=== PATIENT | male | born 1945 | race Caucasian/White ===

== ENCOUNTER 2019-08-09 08:33 | Day surgery (SDC) | payer MEDICARE, MEDICAID ==
[2019-08-09 09:22] LABS: INTERNATIONAL RATION (INR) 1.24; PROTHROMBIN TIME 15.7 SEC (11.4-15.4)
[2019-08-09 09:23] LABS: PARTIAL THROMBOPLASTIN TIME 31.6 SEC (23.5-35.8)
--- NOTE | 2019-08-09 13:42 | RADIOLOGY REPORT (SQ) ---
EXAM DESCRIPTION: MYELOGRAM LUMBAR COMPLETED DATE/TIME: 08/09/2019 12:00 pm REASON FOR STUDY: RADICULOPATHY LUMBAR REGION M54.16 RADICULOPATHY, LUMBAR REGION Z79.01 [facility] (CURRENT) USE OF ANTICOAGULANTS COMPARISON: None. FLUOROSCOPY TIME: 1.3 minutes. 10 images saved to PACS. TECHNIQUE: Fluoroscopic guided lumbar myelogram. LIMITATIONS: None. PROCEDURE: After written consent and assessment were obtained, the patient was brought into the fluo roscopy room and placed prone on the table. The patient's lower back was prepped in a sterile fashio n and an entry site was selected under live fluoroscopic guidance. The entry site was anesthetized wi th 1% lidocaine. The spinal needle was advanced through the skin and into the thecal sac at the leve l of L2-L3. Contrast was injected into the thecal sac. Following the procedure the needle was remov ed and a sterile bandage was placed of the site. CONTRAST: 15 mL Omnipaque 180. IMAGES ACQUIRED: 10 images. FINDINGS: Contrast is present in the thecal sac. IMPRESSION: LUMBAR MYELOGRAM PERFORMED FOR CT MYELOGRAPHY. PLEASE REFER TO THE REPORT OF THE CT MYE LOGRAM FOR DETAILED DIAGNOSTIC EVALUATION. COMMENT: Patient medication list reviewed: Yes- Quality ID# [id number]:Eligible professional attests to doc umenting in the medical record they obtained, updated, or reviewed the patient's current medications. . Quality ID [id number]: Final reports for procedures using fluoroscopy that document radiation exposure marsha maru, or exposure time and number of fluorographic images (if radiation exposure indices are not avail able) TECHNICAL DOCUMENTATION: JOB ID: [id number] [employer]- All Rights Reserved Reading location - IP/workstation name: [email or web address]
--- NOTE | 2019-08-09 13:51 | RADIOLOGY REPORT (SQ) ---
EXAM DESCRIPTION: CT LUMBAR SPINE WITH COMPLETED DATE/TIME: 08/09/2019 11:02 am REASON FOR STUDY: RADICULOPATHY LUMBAR REGION M54.16 RADICULOPATHY, LUMBAR REGION Z79.01 [facility]IST (CURRENT) USE OF ANTICOAGULANTS COMPARISON: None. TECHNIQUE: After performing lumbar myelogram, axial images were acquired through the lumbar spine wi thout intravenous contrast. Images reviewed with lung, soft tissue and bone windows. Reconstructed coronal and sagittal MPR images reviewed. All images stored on PACS. All CT scanners at this facility use dose modulation, iterative reconstruction, and/or weight based d osing when appropriate to reduce radiation dose to as low as reasonably achievable (ALARA). [facility]: Dose Right [facility]: CareDose [facility]: Dose Right [facility]: Teradose 4D [facility]: Exalead RADIATION DOSE: CT Rad equipment meets quality standard of care and radiation dose reduction techniq ues were employed. CTDIvol: 5.7 mGy. DLP: 226 mGy-cm. mGy. LIMITATIONS: None. FINDINGS: SEGMENTATION: Normal. No transitional anatomy. ALIGNMENT: Normal. VERTEBRAL BODIES: No fractures. No dislocation. No acute findings. HARDWARE: None in the spine. DISCS: T11-T12: No significant protrusions. No significant stenosis. Dural ectasia involving the right nerv e root sheath in the exit foramen. T12-L1: No significant protrusions. No significant stenosis. L1-L2: No significant protrusions. No significant stenosis. L2-L3: No significant protrusions. No significant stenosis. L3-L4: No significant protrusions. No significant stenosis. There is dural ectasia of the right ner ve root sheath causing chronic scalloping of the posterior body of the L3 vertebra. L4-L5: No significant protrusions. No significant stenosis. L5-S1: Mild posterior disc and osteophyte. No significant protrusions. No significant stenosis. PEDICLES, TRANSVERSE PROCESSES: No fractures. No dislocation. No acute findings. FACETS, POSTERIOR ELEMENTS: Facet arthropathy particularly in the lower lumbar spine No fractures. No dislocation. No spinal stenosis. VISUALIZED RIBS: No fractures. SOFT TISSUES: No significant or acute finding in adjacent soft tissues. OTHER: 4.2 cm infrarenal abdominal aortic aneurysm, not completely imaged. IMPRESSION: 1. MILD POSTERIOR DISC AND OSTEOPHYTE AT L5-S1. THE REMAINDER OF THE LUMBAR DISC LEVELS ARE UNREMARK ABLE. NO SIGNIFICANT PROTRUSIONS. NO STENOSIS OR IMPINGEMENT. 2. 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 3. FACET ARTHROPATHY IN THE LOWER LUMBAR SPINE. 4. 4.2 CM INFRARENAL ABDOMINAL AORTIC ANEURYSM, NOT COMPLETELY IMAGED. COMMENT: Patient medication list reviewed: Yes- Quality ID# [id number]:Eligible professional attests to doc umenting in the medical record they obtained, updated, or reviewed the patient's current medications. TECHNICAL DOCUMENTATION: JOB ID: [id number] Quality ID # [id number]: Final reports with documentation of one or more dose reduction techniques (e.g., Au tomated exposure control, adjustment of the mA and/or kV according to patient size, use of iterative reconstruction technique) 2010 [employer] All Rights Reserved Reading location - IP/workstation name: [email or web address]
[2019-08-09 14:08] VITALS: BP 134/66
== END 2019-08-09 13:20 ==
LOC: RAD 08:33
PROVIDERS: ATTEND Physician Assistant
DX: M54.16 Radiculopathy, lumbar region (principal); Z79.01 Long term (current) use of anticoagulants; I10 Essential (primary) hypertension; Z86.73 Personal history of transient ischemic attack (TIA), and cerebral infarction without residual deficits; Z79.899 Other long term (current) drug therapy; Z87.891 Personal history of nicotine dependence; M51.86 Other intervertebral disc disorders, lumbar region; Z95.0 Presence of cardiac pacemaker
CPT/HCPCS: 36415; 72132; 72265; 85610; 85730

== ENCOUNTER 2019-08-15 15:00 | Emergency (ER) | payer MEDICARE, MEDICAID ==
[2019-08-15] MEDS ORDERED: ACETAMINOPHEN 325 MG TABLET PO ONE (16:12)
[2019-08-15 17:07] LABS: ABSOLUTE LYMPHOCYTES (AUTO) 1.4 10^3/uL (0.5-4.7); ABSOLUTE NEUT (AUTO) 10.3 10^3/uL (1.7-8.2); BASOPHILS % (AUTO) 0.4 % (0-2); HEMATOCRIT 38.3 % (37.9-51.0); HEMOGLOBIN 13.1 g/dL (13.5-17.0); LYMPHOCYTES % (AUTO) 10.8 % (13-45); MEAN CORPUSCULAR HEMOGLOBIN 32.1 pg (27.0-33.4); MEAN CORPUSCULAR HGB CONC 34.1 g/dL (32.0-36.0); MEAN CORPUSCULAR VOLUME 94 fl (80-97); MONOCYTES % (AUTO) 7.8 % (3-13); PLATELET COUNT 195 10^3/uL (150-450); RED BLOOD COUNT 4.07 10^6/uL (4.35-5.55); RED CELL DISTRIBUTION WIDTH 13.6 % (11.5-14.0); TOTAL CELLS COUNTED % (AUTO) 100 %; WHITE BLOOD COUNT 12.7 10^3/uL (4.0-10.5)
[2019-08-15 17:09] LABS: VENOUS BLOOD BASE EXCESS -1.4 mmol/L; VENOUS BLOOD HCO3 22.8 mmol/L (20-32); VENOUS BLOOD PCO2 37.3 mmHg (35-63); VENOUS BLOOD PH 7.41 (7.30-7.42)
--- NOTE | 2019-08-15 17:15 | RADIOLOGY REPORT (SQ) ---
EXAM DESCRIPTION: ELBOW LEFT AP/LATERAL COMPLETED DATE/TIME: 08/15/2019 5:02 pm REASON FOR STUDY: pain and swelling COMPARISON: None. EXAM PARAMETERS: NUMBER OF VIEWS: Two view. TECHNIQUE: AP and lateral radiographic images acquired of the left elbow. LIMITATIONS: None. FINDINGS: MINERALIZATION: Normal. BONES: No acute fracture or dislocation. No worrisome bone lesions. JOINTS: No effusion. SOFT TISSUES: Olecranon soft tissue swelling. No radiopaque foreign body. OTHER: No other significant finding. IMPRESSION: NO FRACTURE.Olecranon soft tissue swelling. No radiopaque foreign body. TECHNICAL DOCUMENTATION: JOB ID: [id number] [place]-72 2010 [email or web address]- All Rights Reserved Reading location - IP/workstation name: [email or web address]
--- NOTE | 2019-08-15 17:16 | RADIOLOGY REPORT (SQ) ---
EXAM DESCRIPTION: KNEE RIGHT 3 VIEWS COMPLETED DATE/TIME: 08/15/2019 5:02 pm REASON FOR STUDY: pain and swelling COMPARISON: None. NUMBER OF VIEWS: Three views. TECHNIQUE: AP, lateral, and sunrise patella radiographic images acquired of the right knee. LIMITATIONS: None. FINDINGS: MINERALIZATION: Osteopenia. BONES: No acute fracture or dislocation. No worrisome bone lesions. JOINT: No effusion. SOFT TISSUES: No soft tissue swelling. No radio-opaque foreign body. OTHER: No other significant finding. IMPRESSION: NEGATIVE STUDY OF THE RIGHT KNEE. NO RADIOGRAPHIC EVIDENCE OF ACUTE INJURY. TECHNICAL DOCUMENTATION: JOB ID: [id number] [employer]- All Rights Reserved Reading location - IP/workstation name: [email or web address]
[2019-08-15 17:25] LABS: ALBUMIN 3.9 g/dL (3.5-5.0); ALKALINE PHOSPHATASE 111 U/L (38-126); ANION GAP 11 (5-19); ASPARTATE AMINO TRANSFERASE 26 U/L (17-59); BILIRUBIN,DIRECT 0.3 mg/dL (0.0-0.4); BILIRUBIN,TOTAL 1.3 mg/dL (0.2-1.3); BLOOD UREA NITROGEN 23 mg/dL (7-20); CALCIUM 9.5 mg/dL (8.4-10.2); CARBON DIOXIDE 26 mmol/L (22-30); CHLORIDE 100 mmol/L (98-107); GLUCOSE 133 mg/dL (75-110); POTASSIUM 4.2 mmol/L (3.6-5.0); TOTAL PROTEIN 7.3 g/dL (6.3-8.2)
[2019-08-15] MEDS ORDERED: COLCHICINE 0.6 MG TABLET PO ONE (18:35)
[2019-08-15] MEDS ORDERED: FEBUXOSTAT 40 MG TABLET PO ONE (18:35)
--- NOTE | 2019-08-15 18:35 | ER Document Report ---
ED General - General Chief Complaint: Elbow Injury Stated Complaint: FALL Time Seen by Provider: 08/15/19 15:06 Primary Care Provider: REDD MÉNDEZ MD [Primary Care Provider] - Follow up as needed Notes: 74-year-old male sent from [place] complaining of right knee pain and left elbow pain. Patient can give me no further history aside from the fact that is been hurting for several days. When the son comes in he states that the patient has actually been calling about right foot pain rather than right knee pain. When interviewing the patient in front of the son the patient states that his right foot hurts more than his right knee and that he has had multiple falls at the halfway. Complains of no other pain. States he has been diagnosed with urinary tract infection has been Augmentin for the past week. Denies any other symptoms. TRAVEL OUTSIDE OF THE [place] IN LAST 30 DAYS: No - Related Data Allergies/Adverse Reactions: No Known Allergies Allergy (Unverified 05/27/18 12:57) Past Medical History - General Information source: Patient, Relative - Social History Smoking Status: Never Smoker Chew tobacco use (# tins/day): No Frequency of alcohol use: None Drug Abuse: None Family History: Reviewed & Not Pertinent Patient has suicidal ideation: No Patient has homicidal ideation: No - Past Medical History Cardiac Medical History: Reports: Hx Hypertension - MEDICATED Denies: Hx Heart Attack Pulmonary Medical History: Denies: Hx Asthma, Hx Bronchitis, Hx COPD, Hx Pneumonia Neurological Medical History: Reports: Hx Cerebrovascular Accident - 12/2017 STROKE BEHIND LEFT EYE/NO DEFICEIT. Denies: Hx Seizures GI Medical History: Denies: Hx Hepatitis, Hx Hiatal Hernia, Hx Ulcer Infectious Medical History: Denies: Hx Hepatitis Past Surgical History: Denies: Hx Open Heart Surgery, Hx Pacemaker - Immunizations Hx Diphtheria, Pertussis, Tetanus Vaccination: No Review of Systems - Review of Systems Constitutional: Weakness EENT: No symptoms reported Male Genitourinary: See HPI Musculoskeletal: See HPI Skin: See HPI -: Yes All other systems reviewed and negative Physical Exam - Vital signs Vitals: Temp Pulse Resp BP Pulse Ox 98.4 F 83 18 133/84 H 100 08/15/19 15:01 08/15/19 15:01 08/15/19 15:01 08/15/19 15:01 08/15/19 15:01 Interpretation: Normal - Notes Notes: GENERAL: Alert, mildly confused. No acute distress. HEAD: Normocephalic, atraumatic EYES: Pupils equal, round and reactive to light, extraocular movements intact. ENT: Oral mucosa moist, tongue midline. NECK: Full range of motion, supple, trachea midline. LUNGS: Clear to auscultation bilaterally, no wheezes, rales or rhonchi, no respiratory distress. HEART: Regular rate and rhythm, no murmurs, gallops, rubs. ABDOMEN: Soft, nontender, nondistended, bowel sounds present in all 4 quadrants. EXTREMITIES: Moves all 4 extremities spontaneously but complains of pain with flexion extension of his knee. Later on is moving his right knee without any difficulty or hesitation, skin changes as noted below, radial and dorsalis pedis pulses 2/4 bilaterally. No cyanosis. NEUROLOGICAL: Alert and mildly confused, oriented to person and place, does not know the year. PSYCH: Normal mood, normal affect. SKIN: Bursa of left elbow is enlarged, tender to palpation, fluctuant, hot to the touch. Lateral aspect of right foot is also hot to the touch, no swelling and no fluctuance noted. Course - Re-evaluation Re-evalutation: 08/15/19 18:49 Patient was found to be febrile, white blood cell count is elevated at 12.7, mildly anemic with hemoglobin of 13.1, VBG unremarkable, chemistries show BUN of 23 which is unchanged from 10 days ago, creatinine is 1.93 which is also not sig nificantly changed from 10 days ago, urinalysis has been ordered. I did aspirate the enlarged bursa of the left elbow based off of his fever because I did not want to miss an abscess however what I obtained is classic for gouty arthritis. It was sent for Gram stain and culture. Knee x-ray and elbow x-ray are negative for any acute process. Foot x-ray was ordered after son presented and stated that he is afraid the patient fell and injured his right foot rather than his right knee. 08/15/19 20:39 Chest x-ray unremarkable. Foot x-ray unremarkable. Urinalysis shows no sign of infection although it does show blood. Patient has been pancultured, no evidence of focal infection. No true alteration in mental status. At this point I have no explanation for why the patient is febrile however he is quite stable. Patient and son are both agreeable with the patient being transferred back to [facility]. Patient will be treated for his gout with Uloric. - Vital Signs Vital signs: Temp Pulse Resp BP Pulse Ox 99.4 F 78 18 122/56 L 96 08/15/19 18:59 08/15/19 17:46 08/15/19 15:01 08/15/19 17:46 08/15/19 17:46 - Laboratory Result Diagrams: 08/15/19 16:40 08/15/19 16:40 Laboratory results interpreted by me: 08/15/19 08/15/19 08/15/19 16:40 16:40 19:04 WBC 12.7 H RBC 4.07 L Hgb 13.1 L Lymph % (Auto) 10.8 L Absolute Neuts (auto) 10.3 H Seg Neutrophils % 81.0 H BUN 23 H Creatinine 1.93 H Est GFR ( Amer) 41 L Est GFR (MDRD) Non-Af 34 L Glucose 133 H Urine Ketones TRACE H Urine Blood LARGE H Discharge - Discharge Clinical Impression: Gout of left elbow Qualifiers: Gout etiology: unspecified cause Chronicity: acute Qualified Code(s): M10.9 - Gout, unspecified Gout of right foot Qualifiers: Gout etiology: unspecified cause Chronicity: acute Qualified Code(s): M10.9 - Gout, unspecified Condition: Stable Disposition: REHAB FACILITY Additional Instructions: Today you had a fever but we do not have an exact cause for your fever. There is no sign of pneumonia and there is no sign of remaining urinary tract infection. You do have gout of your left elbow and your right foot. I have prescribed Uloric to treat this. Please take this once a day for the next 7 days or until the pain completely resolves. If the pain completely resolved you may stop early. You may use some of the tramadol which your son stated you already have for pain as well. We gave you a dose of that here today. Prescriptions: Febuxostat [Uloric 40 mg Tablet] 40 mg PO DAILY #7 tablet Referrals: REDD MÉNDEZ MD [Primary Care Provider] - Follow up as needed
--- NOTE | 2019-08-15 18:59 | RADIOLOGY REPORT (SQ) ---
EXAM DESCRIPTION: FOOT RIGHT COMPLETE COMPLETED DATE/TIME: 08/15/2019 6:35 pm REASON FOR STUDY: right foot pain COMPARISON: None. NUMBER OF VIEWS: Three views. TECHNIQUE: AP, lateral and oblique radiographic images acquired of the right foot. LIMITATIONS: None. FINDINGS: MINERALIZATION: Osteopenic BONES: No acute fracture or dislocation. No worrisome bone lesions. JOINTS: No effusions. SOFT TISSUES: No soft tissue swelling. No foreign body. OTHER: No other significant finding. IMPRESSION: Bones are osteopenic. No acute fracture. TECHNICAL DOCUMENTATION: JOB ID: [id number] [employer]- All Rights Reserved Reading location - IP/workstation name: [email or web address]
[2019-08-15 19:36] LABS: APPEARANCE,URINE CLEAR; BILIRUBIN,URINE NEGATIVE (NEGATIVE); COLOR,URINE YELLOW; GLUCOSE, URINE NEGATIVE (NEGATIVE); KETONES,URINE TRACE mg/dL (NEGATIVE); LEUKOCYTE ESTERASE,URINE NEGATIVE (NEGATIVE); NITRITE,URINE NEGATIVE (NEGATIVE); PROTEIN,URINE NEGATIVE (NEGATIVE); URINE SPECIFIC GRAVITY 1.017; UROBILINOGEN,URINE NEGATIVE mg/dL (<2.0)
--- NOTE | 2019-08-15 20:31 | RADIOLOGY REPORT (SQ) ---
EXAM DESCRIPTION: XR CHEST 1 VIEW COMPLETED DATE/TME: 08/15/2019 20:00 CLINICAL HISTORY: 74 years, Male, fever Findings: Left subclavian dual-lead pacemaker is in normal limits. Heart is mildly enlarged. No consolidation or pleural effusion. Mild biapical scarring changes. No consolidation. IMPRESSION: No acute disease.
[2019-08-15] MEDS ORDERED: TRAMADOL HCL 50 MG TABLET PO ONE (20:43)
[2019-08-15 22:21] VITALS: BP 117/45
== END 2019-08-15 22:32 ==
LOC: ER 15:00
DX: M10.9 Gout, unspecified (principal); M25.561 Pain in right knee; M25.522 Pain in left elbow; M79.671 Pain in right foot; W19.XXXA Unspecified fall, initial encounter; Y92.129 Unspecified place in nursing home as the place of occurrence of the external cause; I10 Essential (primary) hypertension; Z79.899 Other long term (current) drug therapy; R53.1 Weakness
CPT/HCPCS: 36415; 87040; 87086; 87205; 87070; 83605; 85025; 87075; 80053; 81001; 82803; 71045; 73070; 73630; 73562; A9270 ×4; 99284; J3490

== ENCOUNTER 2019-08-16 14:20 | Inpatient (IN) | payer MEDICARE, MEDICAID ==
--- NOTE | 2019-08-16 15:13 | ER Document Report ---
ED General - General Chief Complaint: Nausea/Vomiting Stated Complaint: VOMITING,FEVER Time Seen by Provider: 08/16/19 14:43 Primary Care Provider: REDD MÉNDEZ MD [Primary Care Provider] - Follow up as needed Notes: 74-year-old male presents emergency department from [facility] for vomiting and development of a fever, temperature for EMS was 100.3. This developed today. Patient was seen yesterday in this emergency department for fever and gout. Patient states that his right ankle and left elbow are improved, now complains of periumbilical pain and persistent right knee pain. No new injuries. TRAVEL OUTSIDE OF THE [place] IN LAST 30 DAYS: No - Related Data Allergies/Adverse Reactions: No Known Allergies Allergy (Unverified 05/27/18 12:57) Past Medical History - General Information source: Patient, Emergency Med Personnel, [facility] Records - Social History Smoking Status: Never Smoker Frequency of alcohol use: None Drug Abuse: None Family History: Reviewed & Not Pertinent Patient has suicidal ideation: No Patient has homicidal ideation: No - Past Medical History Cardiac Medical History: Reports: Hx Hypertension - MEDICATED Denies: Hx Heart Attack Pulmonary Medical History: Denies: Hx Asthma, Hx Bronchitis, Hx COPD, Hx Pneumonia Neurological Medical History: Reports: Hx Cerebrovascular Accident - 12/2017 STROKE BEHIND LEFT EYE/NO DEFICEIT. Denies: Hx Seizures GI Medical History: Denies: Hx Hepatitis, Hx Hiatal Hernia, Hx Ulcer Infectious Medical History: Denies: Hx Hepatitis Past Surgical History: Denies: Hx Open Heart Surgery, Hx Pacemaker - Immunizations Hx Diphtheria, Pertussis, Tetanus Vaccination: No Review of Systems - Review of Systems Constitutional: See HPI, Fever EENT: No symptoms reported Gastrointestinal: See HPI, Abdominal pain, Vomiting Musculoskeletal: See HPI Skin: See HPI -: Yes All other systems reviewed and negative Physical Exam - Vital signs Vitals: Resp BP Pulse Ox 13 117/47 L 94 08/16/19 14:36 08/16/19 14:36 08/16/19 14:36 Interpretation: Normal - Notes Notes: GENERAL: Awake, somewhat inattentive, appears uncomfortable, curled up in a ball and rubbing his right thigh. HEAD: Normocephalic, atraumatic EYES: Pupils equal, round and reactive to light, extraocular movements intact. ENT: Oral mucosa moist, tongue midline. NECK: Full range of motion, supple, trachea midline. LUNGS: Clear to auscultation bilaterally, no wheezes, rales or rhonchi, no respiratory distress. HEART: Regular rate and rhythm, no murmurs, gallops, rubs. ABDOMEN: Soft, nontender, nondistended, bowel sounds present in all 4 quadrants. EXTREMITIES: Moves all 4 extremities spontaneously but winces when I try to move his right knee, he holds his right knee in flexion however I am able to fully flex and fully extend the right knee though it does cause him pain, minimal swelling at the right knee, no erythema, no tenderness to palpation of the right knee, thigh or hip. Prefers to hold right leg in internal rotation. Erythema to the lateral aspect of the right foot similar to yesterday, no longer as tender as it was yesterday, erythema and swelling noted to the left elbow unchanged from yesterday however it is no longer nearly as tender to palpation as it was yesterday. radial and dorsalis pedis pulses 2/4 bilaterally. No cyanosis. NEUROLOGICAL: Alert and oriented to person and place, not to time he thinks it is either 1988 or 1998,, normal speech, no facial droop, biceps and patellar DTRs 2+ bilaterally. SKIN: Warm, Dry Course - Re-evaluation Re-evalutation: 08/16/19 22:08 CBC shows anemia with a hemoglobin of 12.5, leukocytosis has resolved since yesterday was 12.7 and it is now 9.5, platelets are normal, INR has actually prolonged compared to the 23, BUN has continued to worsen it is now 29, previously was 23, creatinine is 2.07, previously 1.93, a week ago is 1.89, lactic acid is normal, albumin is low, urinalysis again shows moderate blood but no signs of infection. Patient persistently complains of right knee pain to me although he denies it to nursing and he denied it to his son yesterday, I did order an x-ray of his hip as all the imaging studies that I ordered yesterday were negative but did not look at his hip and this may be referred pain, right hip x-ray shows prosthesis in good position but no acute process. Right knee remains able to be flexed and extended though he complains of pain, there is minimal joint effusion and there is no erythema. No evidence of infected joint. Given the fact that he is now having some vomiting and has a fever I did order a CT scan of the abdomen and pelvis and it shows a 40.5 mm aneurysm of the infrarenal aorta that needs follow-up in 1 year and outpatient vascular consultation. This would not be causing his abdominal pain or his vomiting. Currently still have no source for the patient's fever, but patient is now more oriented than on arrival, oriented to person, place and time. 08/16/19 22:[address] Couch given that this is his second visit in less than 24 hours and the patient is older and higher risk, has somewhat progressive ly worsening renal function, we reviewed the CT scan together and Dr. Couch is concerned by the large amount of stool found in the CT scan, agrees that given his age and dehydration the patient would likely benefit from observation overnight with IV fluids but also the abdominal pain and vomiting may resolve with a good bowel regimen, ordered lactulose by mouth for this patient. Dr. Couch will observe the patient overnight. - Vital Signs Vital signs: Temp Pulse Resp BP Pulse Ox 99.2 F 17 141/64 H 96 08/16/19 20:29 08/16/19 20:00 08/16/19 18:01 08/16/19 20:00 - Laboratory Result Diagrams: 08/16/19 15:54 08/16/19 15:54 Laboratory results interpreted by me: 08/16/19 08/16/19 08/16/19 15:54 15:54 15:54 RBC 3.85 L Hgb 12.5 L Hct 36.4 L Lymph % (Auto) 11.1 L Seg Neutrophils % 81.7 H PT 23.0 H BUN 29 H Creatinine 2.07 H Est GFR ( Amer) 38 L Est GFR (MDRD) Non-Af 32 L Glucose 113 H Total Protein 6.1 L Albumin 3.2 L Urine Blood 08/16/19 20:55 RBC Hgb Hct Lymph % (Auto) Seg Neutrophils % PT BUN Creatinine Est GFR ( Amer) Est GFR (MDRD) Non-Af Glucose Total Protein Albumin Urine Blood MODERATE H - EKG Interpretation by Me Additional EKG results interpreted by me: 08/16/19 22:10 EKG shows sinus rhythm at a rate of 66, left anterior hemiblock, no ST segment elevations or depressions, no T wave inversions, there is T wave flattening in aVL per my interpretation. Discharge - Discharge Clinical Impression: Fever Qualifiers: Fever type: unspecified Qualified Code(s): R50.9 - Fever, unspecified Vomiting Qualifiers: Vomiting type: unspecified Vomiting Intractability: non-intractable Nausea presence: with nausea Qualified Code(s): R11.2 - Nausea with vomiting, unspecified Abdominal pain Qualifiers: Abdominal location: periumbilical Qualified Code(s): R10.33 - Periumbilical pain Constipation Qualifiers: Constipation type: unspecified constipation type Qualified Code(s): K59.00 - Constipation, unspecified Gout of right foot Qualifiers: Encounter type: subsequent encounter Chronicity: acute Gout of left elbow Qualifiers: Encounter type: subsequent encounter Chronicity: acute Condition: Good Disposition: ADMITTED OBSERVATION Admitting Provider: Khoa (Hospitalist) Unit Admitted: Medical Floor Referrals: REDD MÉNDEZ MD [Primary Care Provider] - Follow up as needed
[2019-08-16 16:18] LABS: VENOUS BLOOD BASE EXCESS 0.2 mmol/L; VENOUS BLOOD PH 7.4 (7.30-7.42)
[2019-08-16 16:22] LABS: ABSOLUTE LYMPHOCYTES (AUTO) 1.1 10^3/uL (0.5-4.7); ABSOLUTE MONOCYTES (AUTO) 0.6 10^3/uL (0.1-1.4); ABSOLUTE NEUT (AUTO) 7.7 10^3/uL (1.7-8.2); BASOPHILS % (AUTO) 0.4 % (0-2); EOSINOPHILS % (AUTO) 0.2 % (0-6); HEMATOCRIT 36.4 % (37.9-51.0); HEMOGLOBIN 12.5 g/dL (13.5-17.0); LYMPHOCYTES % (AUTO) 11.1 % (13-45); MEAN CORPUSCULAR HEMOGLOBIN 32.5 pg (27.0-33.4); MEAN CORPUSCULAR HGB CONC 34.3 g/dL (32.0-36.0); MEAN CORPUSCULAR VOLUME 95 fl (80-97); MONOCYTES % (AUTO) 6.6 % (3-13); PLATELET COUNT 185 10^3/uL (150-450); RED BLOOD COUNT 3.85 10^6/uL (4.35-5.55); RED CELL DISTRIBUTION WIDTH 13.5 % (11.5-14.0); SEGMENTED NEUTROPHILS % (AUTO) 81.7 % (42-78); TOTAL CELLS COUNTED % (AUTO) 100 %; WHITE BLOOD COUNT 9.5 10^3/uL (4.0-10.5)
--- NOTE | 2019-08-16 16:32 | RADIOLOGY REPORT (SQ) ---
EXAM DESCRIPTION: HIP RIGHT AP/LATERAL COMPLETED DATE/TIME: 08/16/2019 4:23 pm REASON FOR STUDY: persistent pain with leg movement COMPARISON: None. NUMBER OF VIEWS: Two views. TECHNIQUE: AP pelvis and additional frog-leg view of the right hip. LIMITATIONS: None. FINDINGS: MINERALIZATION: Normal. RIGHT HIP: The hip prosthesis. No fracture or dislocation. No worrisome bone lesions. LEFT HIP: No fracture or dislocation. Degenerative changes with sclerosis and osteophytes. No worri some bone lesions. PUBIS AND ISCHIUM: No fracture. PELVIS: No fracture. SACRUM: No fracture or dislocation. No worrisome bone lesions. LOWER LUMBAR SPINE: No fracture or dislocation. No worrisome bone lesions. No significant disc disea se. SOFT TISSUES: No findings. OTHER: No other significant finding. IMPRESSION: RIGHT HIP PROSTHESIS. DEGENERATIVE CHANGES IN THE LEFT HIP. NO ACUTE FINDINGS. TECHNICAL DOCUMENTATION: JOB ID: [id number] [employer]- All Rights Reserved Reading location - IP/workstation name: [email or web address]
[2019-08-16 16:41] LABS: ALBUMIN 3.2 g/dL (3.5-5.0); ALKALINE PHOSPHATASE 105 U/L (38-126); ANION GAP 10 (5-19); ASPARTATE AMINO TRANSFERASE 59 U/L (17-59); BILIRUBIN,DIRECT 0.2 mg/dL (0.0-0.4); BILIRUBIN,TOTAL 0.8 mg/dL (0.2-1.3); BLOOD UREA NITROGEN 29 mg/dL (7-20); CALCIUM 9.2 mg/dL (8.4-10.2); CARBON DIOXIDE 26 mmol/L (22-30); CHLORIDE 101 mmol/L (98-107); GLUCOSE 113 mg/dL (75-110); POTASSIUM 4.4 mmol/L (3.6-5.0); TOTAL PROTEIN 6.1 g/dL (6.3-8.2)
[2019-08-16] MEDS ORDERED: NORMAL SALINE 1000 ML 1,000 ML IV ONE (18:41)
--- NOTE | 2019-08-16 19:06 | RADIOLOGY REPORT (SQ) ---
EXAM DESCRIPTION: CT ABD/PELVIS WITH IV ORAL COMPLETED DATE/TIME: 08/16/2019 6:45 pm REASON FOR STUDY: fever, vomiting, periumbilical pain COMPARISON: None. TECHNIQUE: CT scan of the abdomen and pelvis performed using helical scanning technique with dynamic intravenous contrast injection. No oral contrast. Images reviewed with lung, soft tissue, and bone windows. Reconstructed coronal and sagittal MPR images reviewed. Delayed images for evaluation of the urinary system also acquired. All images stored on PACS. All CT scanners at this facility use dose modulation, iterative reconstruction, and/or weight based d osing when appropriate to reduce radiation dose to as low as reasonably achievable (ALARA). [facility]: Dose Right [facility]: CareDose [facility]: Dose Right [facility]: Teradose 4D [facility]: Antix Labs CONTRAST TYPE AND DOSE: contrast/concentration: Isovue 350.00 mg/ml; Total Contrast Delivered: 77.0 ml; Total Saline Delivered: 67.0 ml RENAL FUNCTION: BUN 29 creatinine 2.07 RADIATION DOSE: CT Rad equipment meets quality standard of care and radiation dose reduction techniq ues were employed. CTDIvol: 7.2 - 10.0 mGy. DLP: 937 mGy-cm.. LIMITATIONS: None. FINDINGS: LOWER CHEST: Emphysematous changes seen in the lung bases. Mild subsegmental atelectasis. LIVER: Normal size. No masses. No dilated ducts. SPLEEN: Normal size. No focal lesions. PANCREAS: No masses. No significant calcifications. No adjacent inflammation or peripancreatic fluid collections. Pancreatic duct not dilated. GALLBLADDER: No identified stones by CT criteria. No inflammatory changes to suggest cholecystitis. ADRENAL GLANDS: No significant masses or asymmetry. RIGHT KIDNEY AND URETER: No solid masses. No significant calcifications. No hydronephrosis or hyd roureter. LEFT KIDNEY AND URETER: No solid masses. No significant calcifications. No hydronephrosis or hydr oureter. AORTA AND VESSELS: 40.5 mm aneurysm of the infrarenal abdominal aorta. There is no evidence of ruptu re. RETROPERITONEUM: No retroperitoneal adenopathy, hemorrhage or masses. BOWEL AND PERITONEAL CAVITY: No masses or inflammatory changes. No free fluid or peritoneal masses. APPENDIX: Normal. PELVIS: No mass. No free fluid. Normal bladder. ABDOMINAL WALL: No masses. No hernias. BONES: No significant or acute findings. OTHER: No other significant finding. IMPRESSION: 40.5 mm aneurysm of the infrarenal abdominal aorta. Recommend vascular consultation. R ecommend follow-up in 1 year. TECHNICAL DOCUMENTATION: JOB ID: [id number] Quality ID # [id number]: Final reports with documentation of one or more dose reduction techniques (e.g., Au tomated exposure control, adjustment of the mA and/or kV according to patient size, use of iterative reconstruction technique) 2010 [employer]- All Rights Reserved Reading location - IP/workstation name: [email or web address]
[2019-08-16 21:30] LABS: APPEARANCE,URINE CLEAR; BILIRUBIN,URINE NEGATIVE (NEGATIVE); COLOR,URINE YELLOW; GLUCOSE, URINE NEGATIVE (NEGATIVE); KETONES,URINE NEGATIVE (NEGATIVE); LEUKOCYTE ESTERASE,URINE NEGATIVE (NEGATIVE); NITRITE,URINE NEGATIVE (NEGATIVE); PROTEIN,URINE NEGATIVE (NEGATIVE); URINE SPECIFIC GRAVITY 1.041; UROBILINOGEN,URINE NEGATIVE mg/dL (<2.0)
[2019-08-16] MEDS ORDERED: ONDANSETRON HCL INJ/PF 4 MG/2 ML SDV IV ONE (21:53)
[2019-08-16] MEDS ORDERED: LACTULOSE SYRUP 20 GM/30 ML UDCUP PO ONE (22:16)
[2019-08-16] MEDS ORDERED: IPRATROPIUM/ALBUTEROL 0.5-2.5 MG/3 ML AMPUL NEB PRN (22:17)
[2019-08-16] MEDS ORDERED: MAG HYDROX/AL HYDROX/SIMETH SUSP 30 ML UDCUP PO PRN (22:17)
[2019-08-16] MEDS ORDERED: NA PHOS,M-B/NA PHOS,DI-BA (ADULT) 133 ML ENEMA PR ONE (22:20)
[2019-08-17] MEDS: NORMAL SALINE 1000 ML 1,000 ML IV PRN ×2 (02:38→06:34)
--- NOTE | 2019-08-17 03:24 | PDOC H&P ---
History of Present Illness Admission Date/PCP: 08/16/19 22:27 REDD MÉNDEZ MD Patient complains of: Abdominal pain, constipation, fever History of Present Illness: NELI WIGGINS SR is a 74 year old male with a past medical history of CKD 3, gout, hypertension, BPH and Parkinson's disease. He presents with abdominal pain and nausea and vomiting of gastric content. He was seen in the emergency room 24 hours ago for an exacerbation of gout in the right knee for which she received colchicine patient admits knee improved. However work-up reveals worsening chronic kidney disease and CT imaging reveals severe constipation. He is referred to the hospitalist for observation. Patient is a poor historian and unable to provide additional history. Past Medical History Cardiac Medical History: Reports: Hypertension Denies: Myocardial Infarction Pulmonary Medical History: Denies: Asthma, Bronchitis, Chronic Obstructive Pulmonary Disease (COPD), Pneumonia Neurological Medical History: Denies: Seizures GI Medical History: Denies: Hepatitis, Hiatal Hernia Musculoskeltal Medical History: Reports: Gout Psychiatric Medical History: Reports: Dementia Hematology: Denies: Anemia, Sickle Cell Disease Past Surgical History Past Surgical History: Denies: Pacemaker Social History Information Source: [facility] Records Smoking Status: Former Smoker Frequency of Alcohol Use: None Drugs: None - Advance Directive Resuscitation Status: Full Code Family History Family History: Hypertension Parental Family History Reviewed: Yes Children Family History Reviewed: Yes Sibling(s) Family History Reviewed.: Yes Medication/Allergy Home Medications: Amlodipine Besylate [Norvasc 5 mg Tablet] 5 mg PO DAILY 05/27/18 Colchicine [Colchicine 0.6 mg Tablet] 0.6 mg PO BID 05/27/18 Metoprolol Succinate [Toprol Xl] 100 mg PO DAILY 05/27/18 Tamsulosin HCl [Flomax] 0.4 mg PO DAILY 05/27/18 Apixaban [Eliquis 5 mg Tablet] 5 mg PO BID 08/09/19 Atorvastatin Calcium [Lipitor 20 mg Tablet] 20 mg PO QHS 08/09/19 Carbidopa/Levodopa [Sinemet 25-250 Mg Tablet] 1 each PO BID 08/09/19 Fesoterodine Fumarate [Toviaz] 4 mg PO DAILY 08/09/19 Finasteride [Proscar 5 mg Tablet] 5 mg PO DAILY 08/09/19 Omeprazole Magnesium [Prilosec Otc] 20 mg PO DAILY 08/09/19 Ondansetron HCl [Zofran 4 mg Tablet] 1 - 2 tab PO Q4H PRN 08/09/19 Tramadol HCl [Ultram 50 mg Tablet] 50 mg PO Q6HP PRN 08/09/19 Febuxostat [Uloric 40 mg Tablet] 40 mg PO DAILY #7 tablet 08/15/19 Allergies/Adverse Reactions: No Known Allergies Allergy (Unverified 05/27/18 12:57) Review of Systems ROS unobtainable: Due to mental status Physical Exam Vital Signs: Temp Pulse Resp BP Pulse Ox 98.9 F 86 14 114/53 L 100 08/17/19 00:14 08/17/19 02:43 08/17/19 02:43 08/17/19 00:14 08/17/19 02:43 Intake & Output 08/15/19 08/16/19 08/17/19 11:59 11:59 11:59 Intake Total 1000 Balance 1000 Weight 68.1 kg General appearance: PRESENT: cooperative, mild distress, thin. ABSENT: obese Head exam: PRESENT: atraumatic, normocephalic Eye exam: PRESENT: conjunctiva pink, EOMI, PERRLA. ABSENT: scleral icterus Ear exam: PRESENT: normal external ear exam Mouth exam: PRESENT: dry mucosa, tongue midline Neck exam: ABSENT: carotid bruit, JVD, lymphadenopathy, thyromegaly Respiratory exam: PRESENT: clear to auscultation haider. ABSENT: rales, rhonchi, wheezes Cardiovascular exam: PRESENT: RRR. ABSENT: diastolic murmur, rubs, systolic murmur Pulses: PRESENT: normal dorsalis pedis pul Vascular exam: PRESENT: normal capillary refill GI/Abdominal exam: PRESENT: distended, hypoactive bowel sounds, soft, tenderness. ABSENT: ascites, firm, guarding Rectal exam: PRESENT: deferred Extremities exam: PRESENT: full ROM. ABSENT: calf tenderness, clubbing, pedal edema Neurological exam: PRESENT: alert, awake, oriented to person, oriented to situa tion, CN II-XII grossly intact. ABSENT: motor sensory deficit Psychiatric exam: PRESENT: appropriate affect, normal mood. ABSENT: homicidal ideation, suicidal ideation Skin exam: PRESENT: dry, intact, warm. ABSENT: cyanosis, rash Results Laboratory Results: 08/16/19 15:54 08/16/19 15:54 08/16/19 08/16/19 08/16/19 15:54 15:54 15:54 WBC 9.5 RBC 3.85 L Hgb 12.5 L Hct 36.4 L MCV 95 MCH 32.5 MCHC 34.3 RDW 13.5 Plt Count 185 Seg Neutrophils % 81.7 H VBG pH VBG pCO2 VBG HCO3 VBG Base Excess Sodium 137.2 Potassium 4.4 Chloride 101 Carbon Dioxide 26 Anion Gap 10 BUN 29 H Creatinine 2.07 H Est GFR ( Amer) 38 L Glucose 113 H Lactic Acid 1.4 Calcium 9.2 Total Bilirubin 0.8 AST 59 Alkaline Phosphatase 105 Total Protein 6.1 L Albumin 3.2 L Lipase 89.1 Urine Color Urine Appearance Urine pH Ur Specific [place] Urine Protein Urine Glucose (UA) Urine Ketones Urine Blood Urine Nitrite Ur Leukocyte Esterase Urine WBC (Auto) Urine RBC (Auto) 08/16/19 08/16/19 15:54 20:55 WBC RBC Hgb Hct MCV MCH MCHC RDW Plt Count Seg Neutrophils % VBG pH 7.40 VBG pCO2 41.0 VBG HCO3 25.0 VBG Base Excess 0.2 Sodium Potassium Chloride Carbon Dioxide Anion Gap BUN Creatinine Est GFR ( Amer) Glucose Lactic Acid Calcium Total Bilirubin AST Alkaline Phosphatase Total Protein Albumin Lipase Urine Color YELLOW Urine Appearance CLEAR Urine pH 5.0 Ur Specific [place] 1.041 Urine Protein NEGATIVE Urine Glucose (UA) NEGATIVE Urine Ketones NEGATIVE Urine Blood MODERATE H Urine Nitrite NEGATIVE Ur Leukocyte Esterase NEGATIVE Urine WBC (Auto) 3 Urine RBC (Auto) 14 Impressions: Abdomen/Pelvis CT 08/16/19 00:00 IMPRESSION: 40.5 mm aneurysm of the infrarenal abdominal aorta. Recommend vascular consultation. Recommend follow-up in 1 year. Hip/Pelvis X-Ray 08/16/19 15:08 IMPRESSION: RIGHT HIP PROSTHESIS. DEGENERATIVE CHANGES IN THE LEFT HIP. NO ACUTE FINDINGS. Assessment and Plan - Diagnosis (1) Acute worsening of stage 3 chronic kidney disease Is this a current diagnosis for this admission?: Yes Plan: Multifactorial secondary to prerenal azotemia and colchicine. Hydration, discontinue colchicine, follow-up chemistry (2) Abdominal pain Qualifiers: Abdominal location: periumbilical Qualified Code(s): R10.33 - Periumbilical pain Is this a current diagnosis for this admission?: Yes Plan: Secondary to severe constipation, enema and lactulose, try clear liquids (3) Constipation Qualifiers: Constipation type: unspecified constipation type Qualified Code(s): K59.00 - Constipation, unspecified Is this a current diagnosis for this admission?: Yes Plan: Fleet enema, lactulose, trial clear liquids - Time Time Spent with patient: 25-34 minutes
[2019-08-17 03:39] LABS: ABSOLUTE EOSINOPHILS # (AUTO) 0.1 10^3/uL (0.0-0.6); ABSOLUTE LYMPHOCYTES (AUTO) 1.1 10^3/uL (0.5-4.7); ABSOLUTE MONOCYTES (AUTO) 0.6 10^3/uL (0.1-1.4); ABSOLUTE NEUT (AUTO) 7.7 10^3/uL (1.7-8.2); BASOPHILS % (AUTO) 0.4 % (0-2); EOSINOPHILS % (AUTO) 0.6 % (0-6); HEMOGLOBIN 12.2 g/dL (13.5-17.0); LYMPHOCYTES % (AUTO) 11.9 % (13-45); MEAN CORPUSCULAR HEMOGLOBIN 32.5 pg (27.0-33.4); MEAN CORPUSCULAR HGB CONC 34.8 g/dL (32.0-36.0); MEAN CORPUSCULAR VOLUME 94 fl (80-97); MONOCYTES % (AUTO) 6.4 % (3-13); PLATELET COUNT 185 10^3/uL (150-450); RED BLOOD COUNT 3.74 10^6/uL (4.35-5.55); RED CELL DISTRIBUTION WIDTH 13.6 % (11.5-14.0); SEGMENTED NEUTROPHILS % (AUTO) 80.7 % (42-78); TOTAL CELLS COUNTED % (AUTO) 100 %; WHITE BLOOD COUNT 9.6 10^3/uL (4.0-10.5)
[2019-08-17 03:52] LABS: ANION GAP 5 (5-19); BLOOD UREA NITROGEN 28 mg/dL (7-20); CALCIUM 8.9 mg/dL (8.4-10.2); CARBON DIOXIDE 27 mmol/L (22-30); CHLORIDE 107 mmol/L (98-107); GLUCOSE 94 mg/dL (75-110); POTASSIUM 4.7 mmol/L (3.6-5.0)
[2019-08-17] MEDS: ACETAMINOPHEN 325 MG TABLET PO PRN ×2 (05:16→19:03)
[2019-08-17] MEDS ORDERED: MAGNESIUM CITRATE 296 ML BOTTLE PO ONE (11:02)
[2019-08-17] MEDS ORDERED: (PENDING PHARMACY ID) (Ondansetron Hcl [Zofran 4 Mg Tablet] 4 MG) PO PRN (11:02)
--- NOTE | 2019-08-17 11:09 | PDOC PROGRESS REPORT ---
Subjective Progress Note for:: 08/17/19 Subjective:: 74 year old male with a past medical history of CKD 3, gout, hypertension, BPH and Parkinson's disease. He presents with abdominal pain and nausea and vomiting of gastric content. He was seen in the emergency room 24 hours ago for an exacerbation of gout in the right knee for which she received colchicine patient admits knee improved. However work-up reveals worsening chronic kidney disease and CT imaging reveals severe constipation. He is referred to the [facility] for observation. Patient is a poor historian and unable to provide additional history. [id number]-old male with history of Parkinson's disease, CKD, gout, hypertension admitted with abdominal pain nausea vomiting CT scan shows severe constipation. He is getting lactulose and enemas. At the time of admission creatinine is 2.0 and improved to 1.64 with IV fluids. Patient is a poor historian all the same he is getting out of this place. No acute events in the last 24 hours. T-max is 98.9. Plan is to continue the present management and probably discharge him back to rehab facility tomorrow. Reason For Visit: ARF, ABD PAIN DIVERTICULTITIS Physical Exam Vital Signs: Temp Pulse Resp BP Pulse Ox 98.9 F 86 14 114/53 L 100 08/17/19 00:14 08/17/19 02:43 08/17/19 02:43 08/17/19 00:14 08/17/19 02:43 Intake & Output 08/16/19 08/17/19 08/18/19 06:59 06:59 06:59 Intake Total 2083 Output Total 400 Balance 1683 Weight 68.1 kg General appearance: PRESENT: no acute distress, cooperative, thin Head exam: PRESENT: atraumatic Eye exam: PRESENT: PERRLA Mouth exam: PRESENT: moist, tongue midline Teeth exam: PRESENT: poor dentation Neck exam: ABSENT: carotid bruit, JVD, lymphadenopathy, thyromegaly Respiratory exam: PRESENT: decreased breath sounds Cardiovascular exam: PRESENT: RRR. ABSENT: diastolic murmur, rubs, systolic murmur GI/Abdominal exam: PRESENT: normal bowel sounds, soft. ABSENT: distended, guard ing, mass, organolmegaly, rebound, tenderness Rectal exam: PRESENT: deferred Extremities exam: PRESENT: full ROM. ABSENT: calf tenderness, clubbing, pedal edema Neurological exam: PRESENT: alert, awake, other - Is bedbound. Psychiatric exam: PRESENT: anxious Results Laboratory Results: 08/17/19 03:19 08/17/19 03:19 08/16/19 08/16/19 08/16/19 15:54 15:54 15:54 WBC 9.5 RBC 3.85 L Hgb 12.5 L Hct 36.4 L MCV 95 MCH 32.5 MCHC 34.3 RDW 13.5 Plt Count 185 Seg Neutrophils % 81.7 H VBG pH VBG pCO2 VBG HCO3 VBG Base Excess Sodium 137.2 Potassium 4.4 Chloride 101 Carbon Dioxide 26 Anion Gap 10 BUN 29 H Creatinine 2.07 H Est GFR ( Amer) 38 L Glucose 113 H Lactic Acid 1.4 Calcium 9.2 Total Bilirubin 0.8 AST 59 Alkaline Phosphatase 105 Total Protein 6.1 L Albumin 3.2 L Lipase 89.1 Urine Color Urine Appearance Urine pH Ur Specific [place] Urine Protein Urine Glucose (UA) Urine Ketones Urine Blood Urine Nitrite Ur Leukocyte Esterase Urine WBC (Auto) Urine RBC (Auto) 08/16/19 08/16/19 08/17/19 15:54 20:55 03:19 WBC 9.6 RBC 3.74 L Hgb 12.2 L Hct 35.0 L MCV 94 MCH 32.5 MCHC 34.8 RDW 13.6 Plt Count 185 Seg Neutrophils % 80.7 H VBG pH 7.40 VBG pCO2 41.0 VBG HCO3 25.0 VBG Base Excess 0.2 Sodium Potassium Chloride Carbon Dioxide Anion Gap BUN Creatinine Est GFR ( Amer) Glucose Lactic Acid Calcium Total Bilirubin AST Alkaline Phosphatase Total Protein Albumin Lipase Urine Color YELLOW Urine Appearance CLEAR Urine pH 5.0 Ur Specific [place] 1.041 Urine Protein NEGATIVE Urine Glucose (UA) NEGATIVE Urine Ketones NEGATIVE Urine Blood MODERATE H Urine Nitrite NEGATIVE Ur Leukocyte Esterase NEGATIVE Urine WBC (Auto) 3 Urine RBC (Auto) 14 08/17/19 03:19 WBC RBC Hgb Hct MCV MCH MCHC RDW Plt Count Seg Neutrophils % VBG pH VBG pCO2 VBG HCO3 VBG Base Excess Sodium 139.3 Potassium 4.7 Chloride 107 Carbon Dioxide 27 Anion Gap 5 BUN 28 H Creatinine 1.64 H Est GFR ( Amer) 50 L Glucose 94 Lactic Acid Calcium 8.9 Total Bilirubin AST Alkaline Phosphatase Total Protein Albumin Lipase Urine Color Urine Appearance Urine pH Ur Specific [place] Urine Protein Urine Glucose (UA) Urine Ketones Urine Blood Urine Nitrite Ur Leukocyte Esterase Urine WBC (Auto) Urine RBC (Auto) Impressions: Abdomen/Pelvis CT 08/16/19 00:00 IMPRESSION: 40.5 mm aneurysm of the infrarenal abdominal aorta. Recommend vascular consultation. Recommend follow-up in 1 year. Hip/Pelvis X-Ray 08/16/19 15:08 IMPRESSION: RIGHT HIP PROSTHESIS. DEGENERATIVE CHANGES IN THE LEFT HIP. NO ACUTE FINDINGS. Assessment and Plan - Diagnosis (1) Acute worsening of stage 3 chronic kidney disease Is this a current diagnosis for this admission?: Yes Plan: Multifactorial secondary to prerenal azotemia and colchicine. Hydration, discontinue colchicine, follow-up chemistry 08/17/2019-patient's admission creatinine is 2.0 improved to 1.64 with IV fluids. Patient's creatinine is 1.5 on 06/18/2019. Worsened to 2.07 at the time of admission and improved to 1.64 today. AMMY most likely secondary to prerenal causes. pt has a Feldman's catheter. (2) Abdominal pain Qualifiers: Abdominal location: periumbilical Qualified Code(s): R10.33 - Periumbilical pain Is this a current diagnosis for this admission?: Yes Plan: Secondary to severe constipation, enema and lactulose, try clear liquids 11/17/2018-patient admitted with abdominal pain most likely secondary to severe constipation which was resolving. (3) Constipation Qualifiers: Constipation type: unspecified constipation type Qualified Code(s): K59.00 - Constipation, unspecified Is this a current diagnosis for this admission?: Yes Plan: Fleet enema, lactulose, trial clear liquids 08/17/2019-patient receiving Fleet enema lactulose and a trial of clear liquids. Mag citrate is also requested.
[2019-08-17] MEDS ORDERED: HEPARIN SOD (PORCINE) 5,000 UNIT/ML 1 ML VIAL SUBCUT SCH (14:00)
[2019-08-17] MEDS ORDERED: ONDANSETRON 4 MG TAB.RAPDIS PO PRN (14:05)
[2019-08-17] MEDS: TRAMADOL HCL 50 MG TABLET PO PRN (15:01)
[2019-08-17] MEDS: TAMSULOSIN HCL 0.4 MG CAP.SR.24H PO SCH (18:56)
[2019-08-17] MEDS: APIXABAN 5 MG TABLET PO SCH (18:56)
[2019-08-17] MEDS: CARBIDOPA/LEVODOPA 25-250 MG TABLET PO SCH (18:56)
[2019-08-17] MEDS: FEBUXOSTAT 40 MG TABLET PO SCH (19:51)
--- NOTE | 2019-08-17 20:55 | EKG REPORT ---
SEVERITY:- ABNORMAL ECG - SINUS RHYTHM LEFT ANTERIOR FASCICULAR BLOCK : Confirmed by: Poornima Valentin MD 17-Aug-2019 20:54:29
[2019-08-17] MEDS: ATORVASTATIN CALCIUM 80 MG TABLET PO SCH (21:57)
[2019-08-18] MEDS: PANTOPRAZOLE SODIUM 20 MG TABLET.DR PO SCH (05:44)
[2019-08-18] MEDS: TRAMADOL HCL 50 MG TABLET PO PRN (05:47)
[2019-08-18 06:45] LABS: ABSOLUTE EOSINOPHILS # (AUTO) 0.2 10^3/uL (0.0-0.6); ABSOLUTE LYMPHOCYTES (AUTO) 1.2 10^3/uL (0.5-4.7); ABSOLUTE MONOCYTES (AUTO) 0.4 10^3/uL (0.1-1.4); ABSOLUTE NEUT (AUTO) 4.9 10^3/uL (1.7-8.2); BASOPHILS % (AUTO) 0.5 % (0-2); EOSINOPHILS % (AUTO) 3.6 % (0-6); HEMATOCRIT 33.8 % (37.9-51.0); HEMOGLOBIN 11.5 g/dL (13.5-17.0); LYMPHOCYTES % (AUTO) 17.7 % (13-45); MEAN CORPUSCULAR HEMOGLOBIN 31.9 pg (27.0-33.4); MEAN CORPUSCULAR HGB CONC 34.1 g/dL (32.0-36.0); MEAN CORPUSCULAR VOLUME 94 fl (80-97); MONOCYTES % (AUTO) 6.4 % (3-13); PLATELET COUNT 194 10^3/uL (150-450); RED BLOOD COUNT 3.62 10^6/uL (4.35-5.55); RED CELL DISTRIBUTION WIDTH 13.9 % (11.5-14.0); SEGMENTED NEUTROPHILS % (AUTO) 71.8 % (42-78); TOTAL CELLS COUNTED % (AUTO) 100 %; WHITE BLOOD COUNT 6.8 10^3/uL (4.0-10.5)
[2019-08-18 07:10] LABS: ALBUMIN 2.6 g/dL (3.5-5.0); ALKALINE PHOSPHATASE 112 U/L (38-126); ANION GAP 7 (5-19); ASPARTATE AMINO TRANSFERASE 63 U/L (17-59); BILIRUBIN,DIRECT 0.7 mg/dL (0.0-0.4); BILIRUBIN,TOTAL 1.2 mg/dL (0.2-1.3); BLOOD UREA NITROGEN 23 mg/dL (7-20); CALCIUM 8.5 mg/dL (8.4-10.2); CARBON DIOXIDE 25 mmol/L (22-30); CHLORIDE 106 mmol/L (98-107); GLUCOSE 85 mg/dL (75-110); TOTAL PROTEIN 5.5 g/dL (6.3-8.2)
[2019-08-18] MEDS ORDERED: COLCHICINE 0.6 MG TABLET PO SCH (08:00)
[2019-08-18] MEDS ORDERED: (PENDING PHARMACY ID) (Fesoterodine Fumarate [Toviaz] 4 MG) PO SCH (08:00)
[2019-08-18] MEDS: COLCHICINE 0.6 MG TABLET PO SCH (08:49)
[2019-08-18] MEDS: AMLODIPINE BESYLATE 10 MG TABLET PO SCH (08:49)
[2019-08-18] MEDS: APIXABAN 5 MG TABLET PO SCH ×2 (08:50→17:02)
[2019-08-18] MEDS: TAMSULOSIN HCL 0.4 MG CAP.SR.24H PO SCH ×2 (08:50→17:02)
[2019-08-18] MEDS: FINASTERIDE 5 MG TABLET PO SCH (08:50)
[2019-08-18] MEDS: METOPROLOL SUCCINATE 25 MG TAB.SR.24H PO SCH (08:50)
[2019-08-18] MEDS: CARBIDOPA/LEVODOPA 25-250 MG TABLET PO SCH ×2 (08:50→17:02)
--- NOTE | 2019-08-18 09:08 | RADIOLOGY REPORT (SQ) ---
EXAM DESCRIPTION: KUB/ABDOMEN (SINGLE VIEW) COMPLETED DATE/TIME: 08/18/2019 8:58 am REASON FOR STUDY: nausea and vomitings D50.8 OTHER IRON DEFICIENCY ANEMIAS COMPARISON: CT abdomen pelvis dated 08/16/2019 NUMBER OF VIEWS: One view. TECHNIQUE: Supine radiographic image of the abdomen acquired. LIMITATIONS: None. FINDINGS: BOWEL GAS PATTERN: Mild small-bowel distention. There is air in stool within the colon. No evidence of mechanical obstruction. CALCIFICATIONS: No suspicious calcifications. SOFT TISSUES: No gross mass or suggestion of organomegaly. HARDWARE: None in the abdomen. BONES: No acute fracture. No worrisome bone lesions. OTHER: No other significant finding. IMPRESSION: Nonspecific gas pattern. Mild ileus cannot be excluded. TECHNICAL DOCUMENTATION: JOB ID: [id number] [employer]- All Rights Reserved Reading location - IP/workstation name: [email or web address]
--- NOTE | 2019-08-18 10:44 | PDOC PROGRESS REPORT ---
Subjective Progress Note for:: 08/18/19 Subjective:: 74 year old male with a past medical history of CKD 3, gout, hypertension, BPH and Parkinson's disease. He presents with abdominal pain and nausea and vomiting of gastric content. He was seen in the emergency room 24 hours ago for an exacerbation of gout in the right knee for which she received colchicine patient admits knee improved. However work-up reveals worsening chronic kidney disease and CT imaging reveals severe constipation. He is referred to the [facility] for observation. Patient is a poor historian and unable to provide additional history. 08/[id number]-vqua-old male with history of Parkinson's disease, CKD, gout, hypertension admitted with abdominal pain nausea vomiting CT scan shows severe constipation. He is getting lactulose and enemas. At the time of admission creatinine is 2.0 and improved to 1.64 with IV fluids. Patient is a poor historian all the same he is getting out of this place. No acute events in the last 24 hours. T-max is 98.9. Plan is to continue the present management and probably discharge him back to rehab facility tomorrow. 08/[id number]-old male with multiple medical problems admitted with abdominal pain, nausea and vomitings CT scan shows severe constipation not fecal impaction follow-up KUB shows possible mild ileus. Creatinine at the time of admission is to improved to 1.4 today with IV fluids probably is going to be discharged tomorrow. Reason For Visit: ARF, ABD PAIN DIVERTICULTITIS Physical Exam Vital Signs: Temp Pulse Resp BP Pulse Ox 98.9 F 67 18 131/57 H 95 08/18/19 07:39 08/18/19 07:39 08/18/19 07:39 08/18/19 07:39 08/18/19 07:39 Intake & Output 08/17/19 08/18/19 08/19/19 06:59 06:59 06:59 Intake Total 2083 450 Output Total 400 400 Balance 1683 50 Weight 68.1 kg 71.2 kg General appearance: PRESENT: no acute distress, cooperative, thin Head exam: PRESENT: atraumatic Eye exam: PRESENT: PERRLA Mouth exam: PRESENT: moist, tongue midline Teeth exam: PRESENT: poor dentation Neck exam: ABSENT: carotid bruit, JVD, lymphadenopathy, thyromegaly Respiratory exam: PRESENT: decreased breath sounds Cardiovascular exam: PRESENT: RRR. ABSENT: diastolic murmur, rubs, systolic murmur GI/Abdominal exam: PRESENT: normal bowel sounds, soft. ABSENT: distended, guarding, mass, organolmegaly, rebound, tenderness Rectal exam: PRESENT: deferred Extremities exam: PRESENT: full ROM. ABSENT: calf tenderness, clubbing, pedal edema Neurological exam: PRESENT: alert, awake, oriented to person, oriented to place, oriented to time, oriented to situation, CN II-XII grossly intact. ABSENT: motor sensory deficit Results Laboratory Results: 08/18/19 05:59 08/18/19 05:59 08/18/19 08/18/19 05:59 05:59 WBC 6.8 RBC 3.62 L Hgb 11.5 L Hct 33.8 L MCV 94 MCH 31.9 MCHC 34.1 RDW 13.9 Plt Count 194 Seg Neutrophils % 71.8 Sodium 137.9 Potassium 4.0 Chloride 106 Carbon Dioxide 25 Anion Gap 7 BUN 23 H Creatinine 1.40 H Est GFR ( Amer) > 60 Glucose 85 Calcium 8.5 Magnesium 2.0 Total Bilirubin 1.2 AST 63 H Alkaline Phosphatase 112 Total Protein 5.5 L Albumin 2.6 L Impressions: Abdomen/Pelvis CT 08/16/19 00:00 IMPRESSION: 40.5 mm aneurysm of the infrarenal abdominal aorta. Recommend vascular consultation. Recommend follow-up in 1 year. Hip/Pelvis X-Ray 08/16/19 15:08 IMPRESSION: RIGHT HIP PROSTHESIS. DEGENERATIVE CHANGES IN THE LEFT HIP. NO ACUTE FINDINGS. KUB X-Ray 08/18/19 06:00 IMPRESSION: Nonspecific gas pattern. Mild ileus cannot be excluded. Assessment and Plan - Diagnosis (1) Acute worsening of stage 3 chronic kidney disease Is this a current diagnosis for this admission?: Yes (2) Abdominal pain Qualifiers: Abdominal location: periumbilical Qualified Code(s): R10.33 - Periumbilical pain Is this a current diagnosis for this admission?: Yes (3) Constipation Qualifiers: Constipation type: unspecified constipation type Qualified Code(s): K59.00 - Constipation, unspecified Is this a current diagnosis for this admission?: Yes - Plan Summary Summary: - Diagnosis (1) Acute worsening of stage 3 chronic kidney disease Is this a current diagnosis for this admission?: Yes Plan: Multifactorial secondary to prerenal azotemia and colchicine. Hydration, discontinue colchicine, follow-up chemistry 08/17/2019-patient's admission creatinine is 2.0 improved to 1.64 with IV fluids. Patient's creatinine is 1.5 on 06/18/2019. Worsened to 2.07 at the time of admission and improved to 1.64 today. AMMY most likely secondary to prerenal causes. pt has a Feldman's catheter. 08/18/2019-with IV fluids creatinine is improved from 2.0-1.4 today. Acute kidney injury most likely secondary to prerenal causes resolving. Patient has indwelling Feldman's catheter. (2) Abdominal pain Qualifiers: Abdominal location: periumbilical Qualified Code(s): R10.33 - Periumbilical pain Is this a current diagnosis for this admission?: Yes Plan: Secondary to severe constipation, enema and lactulose, try clear liquids 08/17/2019-patient admitted with abdominal pain most likely secondary to severe constipation which was resolving. 08/18/2019-patient admitted with severe abdominal pain associated nausea and vomiting's most likely secondary to severe constipation he was given lactulose, and LEANNA and mag citrate. Patient had a good bowel movements follow-up KUB done today shows mild ileus no constipation. (3) Constipation Qualifiers: Constipation type: unspecified constipation type Qualified Code(s): K59.00 - Constipation, unspecified Is this a current diagnosis for this admission?: Yes Plan: Fleet enema, lactulose, trial clear liquids 08/17/2019-patient receiving Fleet enema lactulose and a trial of clear liquids. Mag citrate is also requested. 08/18/2019-KUB done today shows specific gas pattern. Ileus cannot be excluded. Presently on clear liquids. We are going to advance the diet today.
[2019-08-18] MEDS: FEBUXOSTAT 40 MG TABLET PO SCH (13:36)
[2019-08-18] MEDS ORDERED: PIPERACILLIN/TAZOBACTAM 3.375 GM VIAL IV SCH (21:25)
[2019-08-18] MEDS: ATORVASTATIN CALCIUM 80 MG TABLET PO SCH (21:35)
[2019-08-18] MEDS: PIPERACILLIN SODIUM/TAZOBACTAM 3.375 GM in NORMAL SALINE 100 ML IV SCH (21:50)
--- NOTE | 2019-08-19 00:03 | Progress Note ---
Provider Note Provider Note: Critical care: 08/18/2019 Start time: 9:20 PM Critical care issue: Positive blood culture Nursing staff called me to inform me that the patient had a single positive blood culture with the preliminary indication of gram-positive cocci. Patient was found to have no significant new physical changes and vital signs are stable. Patient has not been on antibiotic therapy. He was noted to have presented with abdominal pain and vomiting. After review of the chart and reevaluation of the patient it seems most appropriate to initiate empiric therapy for a possible bacteremia without evidence of sepsis. Patient will be treated with Zosyn 3.375 g IV every 6 hours while awaiting further culture and sensitivity reports. If no additional cultures are found to be positive and growth is continued to be identified as a gram-positive cocci therapy could be easily converted to oral metronidazole and ciprofloxacin/levofloxacin. The patient has a CBC and metabolic profile ordered for the morning at this time. Stop time: 9:36 PM Total critical care time: 16 minutes
[2019-08-19] MEDS: PIPERACILLIN SODIUM/TAZOBACTAM 3.375 GM in NORMAL SALINE 100 ML IV SCH ×4 (05:36→23:28)
[2019-08-19] MEDS: PANTOPRAZOLE SODIUM 20 MG TABLET.DR PO SCH (05:36)
[2019-08-19 06:31] LABS: ABSOLUTE EOSINOPHILS # (AUTO) 0.3 10^3/uL (0.0-0.6); ABSOLUTE LYMPHOCYTES (AUTO) 1.4 10^3/uL (0.5-4.7); ABSOLUTE MONOCYTES (AUTO) 0.4 10^3/uL (0.1-1.4); ABSOLUTE NEUT (AUTO) 4.2 10^3/uL (1.7-8.2); BASOPHILS % (AUTO) 0.4 % (0-2); EOSINOPHILS % (AUTO) 4.4 % (0-6); HEMATOCRIT 37.6 % (37.9-51.0); HEMOGLOBIN 12.6 g/dL (13.5-17.0); LYMPHOCYTES % (AUTO) 22.5 % (13-45); MEAN CORPUSCULAR HEMOGLOBIN 31.5 pg (27.0-33.4); MEAN CORPUSCULAR HGB CONC 33.4 g/dL (32.0-36.0); MEAN CORPUSCULAR VOLUME 94 fl (80-97); MONOCYTES % (AUTO) 6.8 % (3-13); PLATELET COUNT 169 10^3/uL (150-450); RED BLOOD COUNT 3.98 10^6/uL (4.35-5.55); RED CELL DISTRIBUTION WIDTH 13.6 % (11.5-14.0); SEGMENTED NEUTROPHILS % (AUTO) 65.9 % (42-78); TOTAL CELLS COUNTED % (AUTO) 100 %; WHITE BLOOD COUNT 6.4 10^3/uL (4.0-10.5)
[2019-08-19 06:42] LABS: ALBUMIN 2.5 g/dL (3.5-5.0); ALKALINE PHOSPHATASE 123 U/L (38-126); ANION GAP 6 (5-19); ASPARTATE AMINO TRANSFERASE 74 U/L (17-59); BILIRUBIN,DIRECT 0.3 mg/dL (0.0-0.4); BILIRUBIN,TOTAL 0.9 mg/dL (0.2-1.3); BLOOD UREA NITROGEN 22 mg/dL (7-20); CALCIUM 8.2 mg/dL (8.4-10.2); CARBON DIOXIDE 26 mmol/L (22-30); CHLORIDE 104 mmol/L (98-107); GLUCOSE 94 mg/dL (75-110); POTASSIUM 4.7 mmol/L (3.6-5.0); TOTAL PROTEIN 5.6 g/dL (6.3-8.2)
[2019-08-19] MEDS: COLCHICINE 0.6 MG TABLET PO SCH (07:56)
[2019-08-19] MEDS: AMLODIPINE BESYLATE 10 MG TABLET PO SCH (07:58)
[2019-08-19] MEDS: FINASTERIDE 5 MG TABLET PO SCH (07:58)
[2019-08-19] MEDS: METOPROLOL SUCCINATE 25 MG TAB.SR.24H PO SCH (07:58)
[2019-08-19] MEDS: TRAMADOL HCL 50 MG TABLET PO PRN ×2 (08:03→14:23)
[2019-08-19] MEDS: APIXABAN 5 MG TABLET PO SCH ×2 (09:54→17:13)
[2019-08-19] MEDS: TAMSULOSIN HCL 0.4 MG CAP.SR.24H PO SCH ×2 (09:54→17:13)
[2019-08-19] MEDS: CARBIDOPA/LEVODOPA 25-250 MG TABLET PO SCH ×2 (09:55→17:12)
--- NOTE | 2019-08-19 10:15 | PDOC PROGRESS REPORT ---
Subjective Progress Note for:: 08/19/19 Subjective:: 74 year old male with a past medical history of CKD 3, gout, hypertension, BPH and Parkinson's disease. He presents with abdominal pain and nausea and vomiting of gastric content. He was seen in the emergency room 24 hours ago for an exacerbation of gout in the right knee for which she received colchicine patient admits knee improved. However work-up reveals worsening chronic kidney disease and CT imaging reveals severe constipation. He is referred to the [facility] for observation. Patient is a poor historian and unable to provide additional history. 08/17/[id number]-old male with history of Parkinson's disease, CKD, gout, hypertension admitted with abdominal pain nausea vomiting CT scan shows severe constipation. He is getting lactulose and enemas. At the time of admission creatinine is 2.0 and improved to 1.64 with IV fluids. Patient is a poor historian all the same he is getting out of this place. No acute events in the last 24 hours. T-max is 98.9. Plan is to continue the present management and probably discharge him back to rehab facility tomorrow. 08/18/[id number]-gjff-old male with multiple medical problems admitted with abdominal pain, nausea and vomitings CT scan shows severe constipation not fecal impaction follow-up KUB shows possible mild ileus. Creatinine at the time of admission is to improved to 1.4 today with IV fluids probably is going to be discharged tomorrow. 08/19/2019-no acute events in the last 24 hours. Afebrile. The nurse noticed swollen scrotum. Most likely hydrocele. We are going to do the scrotal ultrasound today. Blood cultures came back positive for gram-positive cocci. Started on IV Zosyn. In my opinion patient is to go to a rehab facility. Patient is bedbound. Reason For Visit: ARF, ABD PAIN DIVERTICULTITIS Physical Exam Vital Signs: Temp Pulse Resp BP Pulse Ox 98.7 F 64 16 137/60 H 98 08/18/19 23:50 08/18/19 23:50 08/18/19 23:50 08/18/19 23:50 08/18/19 23:50 Intake & Output 08/18/19 08/19/19 08/20/19 06:59 06:59 06:59 Intake Total 450 1345 Output Total 400 800 Balance 50 545 Weight 71.2 kg 70.2 kg General appearance: PRESENT: no acute distress, thin Head exam: PRESENT: atraumatic Eye exam: PRESENT: PERRLA Mouth exam: PRESENT: dry mucosa Teeth exam: PRESENT: poor dentation Neck exam: ABSENT: carotid bruit, JVD, lymphadenopathy, thyromegaly Respiratory exam: PRESENT: decreased breath sounds Cardiovascular exam: PRESENT: RRR. ABSENT: diastolic murmur, rubs, systolic murmur GI/Abdominal exam: PRESENT: normal bowel sounds, soft. ABSENT: distended, guarding, mass, organolmegaly, rebound, tenderness Rectal exam: PRESENT: deferred Extremities exam: PRESENT: other - Swollen scrotum most likely hydrocele Musculoskeletal exam: PRESENT: other - Left elbow was swollen most likely secondary to gout. Neurological exam: PRESENT: alert, awake, oriented to person, oriented to place, oriented to time, oriented to situation, CN II-XII grossly intact. ABSENT: motor sensory deficit Psychiatric exam: PRESENT: appropriate affect, normal mood. ABSENT: homicidal ideation, suicidal ideation Results Laboratory Results: 08/19/19 04:59 08/19/19 04:59 08/19/19 08/19/19 04:59 04:59 WBC 6.4 RBC 3.98 L Hgb 12.6 L Hct 37.6 L MCV 94 MCH 31.5 MCHC 33.4 RDW 13.6 Plt Count 169 Seg Neutrophils % 65.9 Sodium 136.1 L Potassium 4.7 Chloride 104 Carbon Dioxide 26 Anion Gap 6 BUN 22 H Creatinine 1.33 H Est GFR ( Amer) > 60 Glucose 94 Calcium 8.2 L Magnesium 1.9 Total Bilirubin 0.9 AST 74 H Alkaline Phosphatase 123 Total Protein 5.6 L Albumin 2.5 L 08/16/19 20:55 Catheterized Urine Urine Culture - Final NO GROWTH 2 DAYS Impressions: Abdomen/Pelvis CT 08/16/19 00:00 IMPRESSION: 40.5 mm aneurysm of the infrarenal abdominal aorta. Recommend vascular consultation. Recommend follow-up in 1 year. Hip/Pelvis X-Ray 08/16/19 15:08 IMPRESSION: RIGHT HIP PROSTHESIS. DEGENERATIVE CHANGES IN THE LEFT HIP. NO ACUTE FINDINGS. KUB X-Ray 08/18/19 06:00 IMPRESSION: Nonspecific gas pattern. Mild ileus cannot be excluded. Assessment and Plan - Diagnosis (1) Acute worsening of stage 3 chronic kidney disease Is this a current diagnosis for this admission?: Yes (2) Abdominal pain Qualifiers: Abdominal location: periumbilical Qualified Code(s): R10.33 - Periumbilical pain Is this a current diagnosis for this admission?: Yes (3) Constipation Qualifiers: Constipation type: unspecified constipation type Qualified Code(s): K59.00 - Constipation, unspecified Is this a current diagnosis for this admission?: Yes (4) Parkinson disease Is this a current diagnosis for this admission?: No - Plan Summary Summary: - Diagnosis (1) Acute worsening of stage 3 chronic kidney disease Is this a current diagnosis for this admission?: Yes Plan: Multifactorial secondary to prerenal azotemia and colchicine. Hydration, discontinue colchicine, follow-up chemistry 08/17/2019-patient's admission creatinine is 2.0 improved to 1.64 with IV fluids. Patient's creatinine is 1.5 on 06/18/2019. Worsened to 2.07 at the time of admission and improved to 1.64 today. AMMY most likely secondary to prerenal causes. pt has a Feldman's catheter. 08/18/2019-with IV fluids creatinine is improved from 2.0-1.4 today. Acute kidney injury most likely secondary to prerenal causes resolving. Patient has indwelling Feldman's catheter. 08/19/2019-patient's serum creatinine today is 1.33. Improving from the admission creatinine of 2.0. Acute kidney injury most likely secondary to pr erenal causes resolving. Patient has indwelling Feldman's catheter. (2) Abdominal pain Qualifiers: Abdominal location: periumbilical Qualified Code(s): R10.33 - Periumbilical pain Is this a current diagnosis for this admission?: Yes Plan: Secondary to severe constipation, enema and lactulose, try clear liquids 08/17/2019-patient admitted with abdominal pain most likely secondary to severe constipation which was resolving. 08/18/2019-patient admitted with severe abdominal pain associated nausea and vomiting's most likely secondary to severe constipation he was given lactulose, and LEANNA and mag citrate. Patient had a good bowel movements follow-up KUB done today shows mild ileus no constipation. 08/19/2019-no complaints of abdominal pain. KUB was done yesterday indicating nonspecific-gas pattern. (3) Constipation Qualifiers: Constipation type: unspecified constipation type Qualified Code(s): K59.00 - Constipation, unspecified Is this a current diagnosis for this admission?: Yes Plan: Fleet enema, lactulose, trial clear liquids 08/17/2019-patient receiving Fleet enema lactulose and a trial of clear liquids. Mag citrate is also requested. 08/18/2019-KUB done today shows nonspecific gas pattern. Ileus cannot be excluded. Presently on clear liquids. We are going to advance the diet today. 08/19/2019-KUB shows nonspecific gas pattern. Diet was advanced yesterday without any problems. 4.Parkinson's disease patient has history of Parkinson's disease which was chronic. To continue carbidopa/levodopa during the hospital stay. 5.Gout. he has a history of gout affecting the left elbow. Receiving colchicine and Uloric. On examination left elbow is swollen but not tender. 6.BPH [facility] has history of BPH with indwelling Feldman's catheter. 7.hypertension Patient blood pressure today is 118/63. Stable. Plan is to continue the present management.
[2019-08-19] MEDS: FEBUXOSTAT 40 MG TABLET PO SCH (14:23)
[2019-08-19] MEDS: ATORVASTATIN CALCIUM 80 MG TABLET PO SCH (21:45)
[2019-08-20] MEDS: PANTOPRAZOLE SODIUM 20 MG TABLET.DR PO SCH (06:00)
[2019-08-20] MEDS: PIPERACILLIN SODIUM/TAZOBACTAM 3.375 GM in NORMAL SALINE 100 ML IV SCH ×4 (06:00→23:28)
[2019-08-20 06:19] LABS: ABSOLUTE EOSINOPHILS # (AUTO) 0.3 10^3/uL (0.0-0.6); ABSOLUTE LYMPHOCYTES (AUTO) 1.2 10^3/uL (0.5-4.7); ABSOLUTE MONOCYTES (AUTO) 0.5 10^3/uL (0.1-1.4); ABSOLUTE NEUT (AUTO) 3.7 10^3/uL (1.7-8.2); BASOPHILS % (AUTO) 0.4 % (0-2); EOSINOPHILS % (AUTO) 5.1 % (0-6); HEMATOCRIT 34.3 % (37.9-51.0); HEMOGLOBIN 11.6 g/dL (13.5-17.0); LYMPHOCYTES % (AUTO) 20.7 % (13-45); MEAN CORPUSCULAR HEMOGLOBIN 31.7 pg (27.0-33.4); MEAN CORPUSCULAR HGB CONC 33.8 g/dL (32.0-36.0); MEAN CORPUSCULAR VOLUME 94 fl (80-97); MONOCYTES % (AUTO) 8.6 % (3-13); PLATELET COUNT 209 10^3/uL (150-450); RED BLOOD COUNT 3.65 10^6/uL (4.35-5.55); RED CELL DISTRIBUTION WIDTH 13.3 % (11.5-14.0); SEGMENTED NEUTROPHILS % (AUTO) 65.2 % (42-78); TOTAL CELLS COUNTED % (AUTO) 100 %; WHITE BLOOD COUNT 5.6 10^3/uL (4.0-10.5)
[2019-08-20 06:42] LABS: ALBUMIN 2.6 g/dL (3.5-5.0); ALKALINE PHOSPHATASE 134 U/L (38-126); ANION GAP 6 (5-19); ASPARTATE AMINO TRANSFERASE 98 U/L (17-59); BILIRUBIN,DIRECT 0.4 mg/dL (0.0-0.4); BLOOD UREA NITROGEN 19 mg/dL (7-20); CALCIUM 8.5 mg/dL (8.4-10.2); CARBON DIOXIDE 27 mmol/L (22-30); CHLORIDE 103 mmol/L (98-107); GLUCOSE 95 mg/dL (75-110); POTASSIUM 4.1 mmol/L (3.6-5.0); TOTAL PROTEIN 5.8 g/dL (6.3-8.2)
[2019-08-20] MEDS ORDERED: INFLUENZA QUAD (6MOS+) 2019-20 VAC 0.5 ML SYR IM ONE (08:00)
[2019-08-20] MEDS: COLCHICINE 0.6 MG TABLET PO SCH (08:28)
[2019-08-20] MEDS: FINASTERIDE 5 MG TABLET PO SCH (08:29)
[2019-08-20] MEDS: TRAMADOL HCL 50 MG TABLET PO PRN (08:29)
[2019-08-20] MEDS: AMLODIPINE BESYLATE 10 MG TABLET PO SCH (08:30)
[2019-08-20] MEDS: METOPROLOL SUCCINATE 25 MG TAB.SR.24H PO SCH (08:31)
[2019-08-20] MEDS: APIXABAN 5 MG TABLET PO SCH ×2 (09:11→17:41)
[2019-08-20] MEDS: CARBIDOPA/LEVODOPA 25-250 MG TABLET PO SCH ×2 (09:11→17:41)
[2019-08-20] MEDS: TAMSULOSIN HCL 0.4 MG CAP.SR.24H PO SCH ×2 (09:11→17:41)
--- NOTE | 2019-08-20 09:44 | PDOC PROGRESS REPORT ---
Subjective Progress Note for:: 08/20/19 Subjective:: 74 year old male with a past medical history of CKD 3, gout, hypertension, BPH and Parkinson's disease. He presents with abdominal pain and nausea and vomiting of gastric content. He was seen in the emergency room 24 hours ago for an exacerbation of gout in the right knee for which she received colchicine patient admits knee improved. However work-up reveals worsening chronic kidney disease and CT imaging reveals severe constipation. He is referred to the [facility] for observation. Patient is a poor historian and unable to provide additional history. 08/17/[id number]-xxpp-old male with history of Parkinson's disease, CKD, gout, hypertension admitted with abdominal pain nausea vomiting CT scan shows severe constipation. He is getting lactulose and enemas. At the time of admission creatinine is 2.0 and improved to 1.64 with IV fluids. Patient is a poor historian all the same he is getting out of this place. No acute events in the last 24 hours. T-max is 98.9. Plan is to continue the present management and probably discharge him back to rehab facility tomorrow. 08/18/[id number]-lgma-old male with multiple medical problems admitted with abdominal pain, nausea and vomitings CT scan shows severe constipation not fecal impaction follow-up KUB shows possible mild ileus. Creatinine at the time of admission is to improved to 1.4 today with IV fluids probably is going to be discharged tomorrow. 08/19/2019-no acute events in the last 24 hours. Afebrile. The nurse noticed swollen scrotum. Most likely hydrocele. We are going to do the scrotal ultrasound today. Blood cultures came back positive for gram-positive cocci. Started on IV Zosyn. In my opinion patient is to go to a rehab facility. Patient is bedbound. 02/2019-no acute events in the last 24 hours. Afebrile. Patient is more alert more awake. Blood cultures are positive for gram-positive cocci awaiting for the complete report. Patient is presently on IV Zosyn. Reason For Visit: ARF, ABD PAIN DIVERTICULTITIS Physical Exam Vital Signs: Temp Pulse Resp BP Pulse Ox 98.4 F 61 17 136/56 H 95 08/20/19 08:31 08/20/19 08:31 08/20/19 08:31 08/20/19 08:31 08/20/19 08:31 Intake & Output 08/19/19 08/20/19 08/21/19 06:59 06:59 06:59 Intake Total 1345 926 100 Output Total 800 1475 Balance 545 -549 100 Weight 70.2 kg 69.5 kg General appearance: PRESENT: no acute distress, thin Head exam: PRESENT: atraumatic Eye exam: PRESENT: PERRLA Mouth exam: PRESENT: moist, tongue midline Teeth exam: PRESENT: poor dentation Neck exam: ABSENT: carotid bruit, JVD, lymphadenopathy, thyromegaly Respiratory exam: PRESENT: decreased breath sounds Cardiovascular exam: PRESENT: RRR. ABSENT: diastolic murmur, rubs, systolic murmur GI/Abdominal exam: PRESENT: normal bowel sounds, soft. ABSENT: distended, guarding, mass, organolmegaly, rebound, tenderness Rectal exam: PRESENT: deferred Extremities exam: PRESENT: full ROM. ABSENT: calf tenderness, clubbing, pedal edema Neurological exam: PRESENT: alert, awake, oriented to person, oriented to place, oriented to time, oriented to situation, CN II-XII grossly intact. ABSENT: motor sensory deficit Results Laboratory Results: 08/20/19 05:08 08/20/19 05:08 08/20/19 08/20/19 05:08 05:08 WBC 5.6 RBC 3.65 L Hgb 11.6 L Hct 34.3 L MCV 94 MCH 31.7 MCHC 33.8 RDW 13.3 Plt Count 209 Seg Neutrophils % 65.2 Sodium 136.4 L Potassium 4.1 Chloride 103 Carbon Dioxide 27 Anion Gap 6 BUN 19 Creatinine 1.32 H Est GFR ( Amer) > 60 Glucose 95 Calcium 8.5 Magnesium 2.0 Total Bilirubin 1.0 AST 98 H Alkaline Phosphatase 134 H Total Protein 5.8 L Albumin 2.6 L Impressions: Abdomen/Pelvis CT 08/16/19 00:00 IMPRESSION: 40.5 mm aneurysm of the infrarenal abdominal aorta. Recommend vascular consultation. Recommend follow-up in 1 year. Hip/Pelvis X-Ray 08/16/19 15:08 IMPRESSION: RIGHT HIP PROSTHESIS. DEGENERATIVE CHANGES IN THE LEFT HIP. NO ACUTE FINDINGS. KUB X-Ray 08/18/19 06:00 IMPRESSION: Nonspecific gas pattern. Mild ileus cannot be excluded. Assessment and Plan - Diagnosis (1) Acute worsening of stage 3 chronic kidney disease Is this a current diagnosis for this admission?: Yes (2) Abdominal pain Qualifiers: Abdominal location: periumbilical Qualified Code(s): R10.33 - Periumbilical pain Is this a current diagnosis for this admission?: Yes (3) Constipation Qualifiers: Constipation type: unspecified constipation type Qualified Code(s): K59.00 - Constipation, unspecified Is this a current diagnosis for this admission?: Yes (4) Parkinson disease Is this a current diagnosis for this admission?: No - Plan Summary Summary: - Diagnosis (1) Acute worsening of stage 3 chronic kidney disease Is this a current diagnosis for this admission?: Yes Plan: Multifactorial secondary to prerenal azotemia and colchicine. Hydration, discontinue colchicine, follow-up chemistry 08/17/2019-patient's admission creatinine is 2.0 improved to 1.64 with IV fluids. Patient's creatinine is 1.5 on 06/18/2019. Worsened to 2.07 at the time of admission and improved to 1.64 today. AMMY most likely secondary to prerenal causes. pt has a Feldman's catheter. 08/18/2019-with IV fluids creatinine is improved from 2.0-1.4 today. Acute kidney injury most likely secondary to prerenal causes resolving. Patient has indwelling Feldman's catheter. 08/19/2019-patient's serum creatinine today is 1.33. Improving from the admission creatinine of 2.0. Acute kidney injury most likely secondary to prerenal causes resolving. Patient has indwelling Feldman's catheter. 02/2019-patient serum creatinine today is 1.32. His stable. Acute kidney injury is resolved. Patient is off the IV fluids at this point. (2) Abdominal pain Qualifiers: Abdominal location: periumbilical Qualified Code(s): R10.33 - Periumbilical pain Is this a current diagnosis for this admission?: Yes Plan: Secondary to severe constipation, enema and lactulose, try clear liquids 08/17/2019-patient admitted with abdominal pain most likely secondary to severe constipation which was resolving. 08/18/2019-patient admitted with severe abdominal pain associated nausea and vomiting's most likely secondary to severe constipation he was given lactulose, and LEANNA and mag citrate. Patient had a good bowel movements follow-up KUB done today shows mild ileus no constipation. 08/19/2019-no complaints of abdominal pain. KUB was done yesterday indicating nonspecific-gas pattern. 08/20/2019-patient admitted with abdominal pain follow-up KUB shows nonspecific gas pattern abdominal pain is resolved. (3) Constipation Qualifiers: Constipation type: unspecified constipation type Qualified Code(s): K59.00 - Constipation, unspecified Is this a current diagnosis for this admission?: Yes Plan: Fleet enema, lactulose, trial clear liquids 08/17/2019-patient receiving Fleet enema lactulose and a trial of clear liquids. Mag citrate is also requested. 08/18/2019-KUB done today shows nonspecific gas pattern. Ileus cannot be excluded. Presently on clear liquids. We are going to advance the diet today. 08/19/2019-KUB shows nonspecific gas pattern. Diet was advanced yesterday without any problems. 08/20/2019-constipation is resolved. 4.Parkinson's disease patient has history of Parkinson's disease which was chronic. To continue carbidopa/levodopa during the hospital stay. 5.Gout. he has a history of gout affecting the left elbow. Receiving colchicine and Uloric. On examination left elbow is swollen but not tender. 6.BPH [facility] has history of BPH with indwelling Feldman's catheter. 7.hypertension Patient blood pressure today is 118/63. Stable. Plan is to continue the present management. 8.positive blood cultures Blood cultures are positive for gram-positive cocci in clusters. On IV Zosyn. Waiting for the sensitivity report.
[2019-08-20] MEDS: FEBUXOSTAT 40 MG TABLET PO SCH (13:23)
[2019-08-20] MEDS: ATORVASTATIN CALCIUM 80 MG TABLET PO SCH (22:18)
[2019-08-21] MEDS: PIPERACILLIN SODIUM/TAZOBACTAM 3.375 GM in NORMAL SALINE 100 ML IV SCH ×4 (05:54→23:14)
[2019-08-21] MEDS: PANTOPRAZOLE SODIUM 20 MG TABLET.DR PO SCH (07:10)
[2019-08-21] MEDS: COLCHICINE 0.6 MG TABLET PO SCH (08:37)
[2019-08-21] MEDS: METOPROLOL SUCCINATE 25 MG TAB.SR.24H PO SCH (08:38)
[2019-08-21] MEDS: AMLODIPINE BESYLATE 10 MG TABLET PO SCH (08:38)
[2019-08-21] MEDS: FINASTERIDE 5 MG TABLET PO SCH (08:38)
[2019-08-21] MEDS: TRAMADOL HCL 50 MG TABLET PO PRN (09:31)
[2019-08-21] MEDS: CARBIDOPA/LEVODOPA 25-250 MG TABLET PO SCH ×2 (09:32→17:03)
[2019-08-21] MEDS: APIXABAN 5 MG TABLET PO SCH ×2 (09:32→17:03)
[2019-08-21] MEDS: TAMSULOSIN HCL 0.4 MG CAP.SR.24H PO SCH ×2 (09:32→17:03)
--- NOTE | 2019-08-21 12:08 | PDOC PROGRESS REPORT ---
Subjective Progress Note for:: 08/21/19 Subjective:: 74 year old male with a past medical history of CKD 3, gout, hypertension, BPH and Parkinson's disease. He presents with abdominal pain and nausea and vomiting of gastric content. He was seen in the emergency room 24 hours ago for an exacerbation of gout in the right knee for which she received colchicine patient admits knee improved. However work-up reveals worsening chronic kidney disease and CT imaging reveals severe constipation. He is referred to the [facility] for observation. Patient is a poor historian and unable to provide additional history. 08/17/[id number]-hgkm-old male with history of Parkinson's disease, CKD, gout, hypertension admitted with abdominal pain nausea vomiting CT scan shows severe constipation. He is getting lactulose and enemas. At the time of admission creatinine is 2.0 and improved to 1.64 with IV fluids. Patient is a poor historian all the same he is getting out of this place. No acute events in the last 24 hours. T-max is 98.9. Plan is to continue the present management and probably discharge him back to rehab facility tomorrow. 08/18/[id number]-uitc-old male with multiple medical problems admitted with abdominal pain, nausea and vomitings CT scan shows severe constipation not fecal impaction follow-up KUB shows possible mild ileus. Creatinine at the time of admission is to improved to 1.4 today with IV fluids probably is going to be discharged tomorrow. 08/19/2019-no acute events in the last 24 hours. Afebrile. The nurse noticed swollen scrotum. Most likely hydrocele. We are going to do the scrotal ultrasound today. Blood cultures came back positive for gram-positive cocci. Started on IV Zosyn. In my opinion patient is to go to a rehab facility. Patient is bedbound. 02/2019-no acute events in the last 24 hours. Afebrile. Patient is more alert more awake. Blood cultures are positive for gram-positive cocci awaiting for the complete report. Patient is presently on IV Zosyn. 08/21/2019-no acute events in the last 24 hours. Afebrile. More alert more awake. Blood cultures are positive for gram-positive cocci in clusters waiting for the sensitivity report. Presently on IV Zosyn. Patient does not have any bowel movement for the last couple of days to give him a Fleet enema today. Reason For Visit: ARF, ABD PAIN DIVERTICULTITIS Physical Exam Vital Signs: Temp Pulse Resp BP Pulse Ox 97.9 F 69 16 127/63 H 98 08/20/19 23:54 08/20/19 23:54 08/20/19 23:54 08/20/19 23:54 08/20/19 23:54 Intake & Output 08/20/19 08/21/19 08/22/19 06:59 06:59 06:59 Intake Total 926 400 100 Output Total 1475 1900 Balance -549 -1500 100 Weight 69.5 kg 69.7 kg General appearance: PRESENT: no acute distress Head exam: PRESENT: atraumatic Eye exam: PRESENT: PERRLA Mouth exam: PRESENT: moist, tongue midline Teeth exam: PRESENT: poor dentation Neck exam: ABSENT: carotid bruit, JVD, lymphadenopathy, thyromegaly Respiratory exam: PRESENT: decreased breath sounds Cardiovascular exam: PRESENT: RRR. ABSENT: diastolic murmur, rubs, systolic murmur GI/Abdominal exam: PRESENT: normal bowel sounds, soft. ABSENT: distended, guarding, mass, organolmegaly, rebound, tenderness Rectal exam: PRESENT: deferred Extremities exam: PRESENT: full ROM. ABSENT: calf tenderness, clubbing, pedal edema Neurological exam: PRESENT: alert, awake, oriented to person, oriented to place, oriented to time, oriented to situation, CN II-XII grossly intact. ABSENT: motor sensory deficit Psychiatric exam: PRESENT: appropriate affect, normal mood. ABSENT: homicidal ideation, suicidal ideation Results Laboratory Results: 08/20/19 05:08 08/20/19 05:08 Impressions: Abdomen/Pelvis CT 08/16/19 00:00 IMPRESSION: 40.5 mm aneurysm of the infrarenal abdominal aorta. Recommend vascular consultation. Recommend follow-up in 1 year. Hip/Pelvis X-Ray 08/16/19 15:08 IMPRESSION: RIGHT HIP PROSTHESIS. DEGENERATIVE CHANGES IN THE LEFT HIP. NO ACUTE FINDINGS. KUB X-Ray 08/18/19 06:00 IMPRESSION: Nonspecific gas pattern. Mild ileus cannot be excluded. Assessment and Plan - Diagnosis (1) Acute worsening of stage 3 chronic kidney disease Is this a current diagnosis for this admission?: Yes (2) Abdominal pain Qualifiers: Abdominal location: periumbilical Qualified Code(s): R10.33 - Periumbilical pain Is this a current diagnosis for this admission?: Yes (3) Constipation Qualifiers: Constipation type: unspecified constipation type Qualified Code(s): K59.00 - Constipation, unspecified Is this a current diagnosis for this admission?: Yes (4) Parkinson disease Is this a current diagnosis for this admission?: No - Plan Summary Summary: - Diagnosis (1) Acute worsening of stage 3 chronic kidney disease Is this a current diagnosis for this admission?: Yes Plan: Multifactorial secondary to prerenal azotemia and colchicine. Hydration, discontinue colchicine, follow-up chemistry 08/17/2019-patient's admission creatinine is 2.0 improved to 1.64 with IV fluids. Patient's creatinine is 1.5 on 06/18/2019. Worsened to 2.07 at the time of admission and improved to 1.64 today. AMMY most likely secondary to prerenal causes. pt has a Feldman's catheter. 08/18/2019-with IV fluids creatinine is improved from 2.0-1.4 today. Acute kidney injury most likely secondary to prerenal causes resolving. Patient has indwelling Feldman's catheter. 08/19/2019-patient's serum creatinine today is 1.33. Improving from the admission creatinine of 2.0. Acute kidney injury most likely secondary to prerenal causes resolving. Patient has indwelling Feldman's catheter. 02/2019-patient serum creatinine today is 1.32. His stable. Acute kidney injury is resolved. Patient is off the IV fluids at this point. 08/21/2019-patient latest serum creatinine is 1.32 acute kidney injury resolved to recheck the labs tomorrow. (2) Abdominal pain Qualifiers: Abdominal location: periumbilical Qualified Code(s): R10.33 - Periumbilical pain Is this a current diagnosis for this admission?: Yes Plan: Secondary to severe constipation, enema and lactulose, try clear liquids 08/17/2019-patient admitted with abdominal pain most likely secondary to severe constipation which was resolving. 08/18/2019-patient admitted with severe abdominal pain associated nausea and vomiting's most likely secondary to severe constipation he was given lactulose, and LEANNA and mag citrate. Patient had a good bowel movements follow-up KUB done today shows mild ileus no constipation. 08/19/2019-no complaints of abdominal pain. KUB was done yesterday indicating nonspecific-gas pattern. 08/20/2019-patient admitted with abdominal pain follow-up KUB shows nonspecific gas pattern abdominal pain is resolved. 08/21/2019-admitted with abdominal pain KUB shows nonspecific gas pattern. Abdominal pain is resolved patient does not have any bowel movement for the last couple of days to give a Fleet enema. (3) Constipation Qualifiers: Constipation type: unspecified constipation type Qualified Code(s): K59.00 - Constipation, unspecified Is this a current diagnosis for this admission?: Yes Plan: Fleet enema, lactulose, trial clear liquids 08/17/2019-patient receiving Fleet enema lactulose and a trial of clear liquids. Mag citrate is also requested. 08/18/2019-KUB done today shows nonspecific gas pattern. Ileus cannot be excluded. Presently on clear liquids. We are going to advance the diet today. 08/19/2019-KUB shows nonspecific gas pattern. Diet was advanced yesterday without any problems. 08/20/2019-constipation is resolved. 08/21/2019-patient does not have any bowel movement for the last 48 hours to give a Fleet enema today. 4.Parkinson's disease patient has history of Parkinson's disease which was chronic. To continue carbidopa/levodopa during the hospital stay. 5.Gout. he has a history of gout affecting the left elbow. Receiving colchicine and Uloric. On examination left elbow is swollen but not tender. 6.BPH [facility] has history of BPH with indwelling Feldman's catheter. 7.hypertension Patient blood pressure today is 118/63. Stable. Plan is to continue the present management. 8.positive blood cultures Blood cultures are positive for gram-positive cocci in clusters. On IV Zosyn. Waiting for the sensitivity report. 08/21/2019-still waiting for the blood cultures sensitivity report present and IV Zosyn cultures are positive for gram-positive cocci in clusters.
[2019-08-21] MEDS ORDERED: NA PHOS,M-B/NA PHOS,DI-BA (ADULT) 133 ML ENEMA PR ONE (14:00)
[2019-08-21] MEDS: FEBUXOSTAT 40 MG TABLET PO SCH (15:03)
[2019-08-21] MEDS ORDERED: FUROSEMIDE INJ/PF 40 MG/4 ML SDV IV ONE (16:30)
--- NOTE | 2019-08-21 20:52 | RADIOLOGY REPORT (SQ) ---
EXAM DESCRIPTION: U/S SCROTUM W/O DOPPLER COMPLETED DATE/TIME: 08/21/2019 8:20 pm REASON FOR STUDY: scrotal swelling D50.8 OTHER IRON DEFICIENCY ANEMIAS COMPARISON: None. TECHNIQUE: Static and realtime reyna scale imaging of the scrotum and testes. Selected color Doppler and spectral images recorded to document blood flow. LIMITATIONS: None. FINDINGS: RIGHT: TESTICLE: Displaced into the inguinal region. Normal size. Normal echotexture. Normal blood flow. No mass. EPIDIDYMIS: Normal. HYDROCELE OR VARICOCELE: No. HERNIA OR EXTRA-TESTICULAR MASS: No. OTHER: No other significant finding. LEFT: TESTICLE: Normal size. Normal echotexture. Normal blood flow. No mass. EPIDIDYMIS: 9 mm epididymal cyst also containing some debris. HYDROCELE OR VARICOCELE: Very large complex hydrocele containing extensive debris. HERNIA OR EXTRA-TESTICULAR MASS: No. OTHER: No other significant finding. IMPRESSION: 1. VERY LARGE COMPLEX HYDROCELE ON THE LEFT CONTAINING EXTENSIVE DEBRIS. COMPLEX 9 MM EPIDIDYMAL CYS T. NO EVIDENCE OF TESTICULAR MASS OR TORSION. 2. THE RIGHT TESTICLE IS DISPLACED INTO THE INGUINAL REGION. UNCLEAR IF THIS IS RELATED TO PRESSURE FROM THE LEFT HYDROCELE OR IF THIS IS THE USUAL ANATOMIC LOCATION OF THIS TESTICLE. NO EVIDENCE OF T ESTICULAR MASS OR TORSION. TECHNICAL DOCUMENTATION: JOB ID: [id number]- All Rights Reserved Reading location - IP/workstation name: [email or web address]
[2019-08-21] MEDS: ATORVASTATIN CALCIUM 80 MG TABLET PO SCH (21:23)
[2019-08-22 05:21] LABS: ABSOLUTE EOSINOPHILS # (AUTO) 0.3 10^3/uL (0.0-0.6); ABSOLUTE LYMPHOCYTES (AUTO) 1.6 10^3/uL (0.5-4.7); ABSOLUTE MONOCYTES (AUTO) 0.5 10^3/uL (0.1-1.4); ABSOLUTE NEUT (AUTO) 3.6 10^3/uL (1.7-8.2); BASOPHILS % (AUTO) 0.8 % (0-2); EOSINOPHILS % (AUTO) 4.8 % (0-6); HEMOGLOBIN 12.7 g/dL (13.5-17.0); LYMPHOCYTES % (AUTO) 26.1 % (13-45); MEAN CORPUSCULAR HEMOGLOBIN 31.9 pg (27.0-33.4); MEAN CORPUSCULAR HGB CONC 34.3 g/dL (32.0-36.0); MEAN CORPUSCULAR VOLUME 93 fl (80-97); MONOCYTES % (AUTO) 7.9 % (3-13); PLATELET COUNT 263 10^3/uL (150-450); RED BLOOD COUNT 3.98 10^6/uL (4.35-5.55); RED CELL DISTRIBUTION WIDTH 13.6 % (11.5-14.0); SEGMENTED NEUTROPHILS % (AUTO) 60.4 % (42-78); TOTAL CELLS COUNTED % (AUTO) 100 %
[2019-08-22] MEDS: PANTOPRAZOLE SODIUM 20 MG TABLET.DR PO SCH (05:45)
[2019-08-22 05:48] LABS: ALBUMIN 2.8 g/dL (3.5-5.0); ALKALINE PHOSPHATASE 126 U/L (38-126); ANION GAP 9 (5-19); ASPARTATE AMINO TRANSFERASE 65 U/L (17-59); BILIRUBIN,DIRECT 0.4 mg/dL (0.0-0.4); BILIRUBIN,TOTAL 0.9 mg/dL (0.2-1.3); BLOOD UREA NITROGEN 19 mg/dL (7-20); CALCIUM 8.7 mg/dL (8.4-10.2); CARBON DIOXIDE 27 mmol/L (22-30); CHLORIDE 100 mmol/L (98-107); GLUCOSE 83 mg/dL (75-110); POTASSIUM 4.1 mmol/L (3.6-5.0); TOTAL PROTEIN 5.8 g/dL (6.3-8.2)
[2019-08-22] MEDS: PIPERACILLIN SODIUM/TAZOBACTAM 3.375 GM in NORMAL SALINE 100 ML IV SCH (05:51)
[2019-08-22] MEDS: COLCHICINE 0.6 MG TABLET PO SCH (08:41)
[2019-08-22] MEDS: FINASTERIDE 5 MG TABLET PO SCH (08:42)
[2019-08-22] MEDS: AMLODIPINE BESYLATE 10 MG TABLET PO SCH (08:42)
[2019-08-22] MEDS: METOPROLOL SUCCINATE 25 MG TAB.SR.24H PO SCH (08:42)
[2019-08-22] MEDS: TRAMADOL HCL 50 MG TABLET PO PRN (09:21)
[2019-08-22] MEDS: TAMSULOSIN HCL 0.4 MG CAP.SR.24H PO SCH ×2 (09:21→17:51)
[2019-08-22] MEDS: APIXABAN 5 MG TABLET PO SCH ×2 (09:21→17:51)
[2019-08-22] MEDS: CARBIDOPA/LEVODOPA 25-250 MG TABLET PO SCH ×2 (09:21→17:51)
--- NOTE | 2019-08-22 11:45 | PDOC PROGRESS REPORT ---
Subjective Progress Note for:: 08/22/19 Subjective:: 74 year old male with a past medical history of CKD 3, gout, hypertension, BPH and Parkinson's disease. He presents with abdominal pain and nausea and vomiting of gastric content. He was seen in the emergency room 24 hours ago for an exacerbation of gout in the right knee for which she received colchicine patient admits knee improved. However work-up reveals worsening chronic kidney disease and CT imaging reveals severe constipation. He is referred to the [facility] for observation. Patient is a poor historian and unable to provide additional history. 08/17/[id number]-ksto-old male with history of Parkinson's disease, CKD, gout, hypertension admitted with abdominal pain nausea vomiting CT scan shows severe constipation. He is getting lactulose and enemas. At the time of admission creatinine is 2.0 and improved to 1.64 with IV fluids. Patient is a poor historian all the same he is getting out of this place. No acute events in the last 24 hours. T-max is 98.9. Plan is to continue the present management and probably discharge him back to rehab facility tomorrow. 08/18/[id number]-mjwv-old male with multiple medical problems admitted with abdominal pain, nausea and vomitings CT scan shows severe constipation not fecal impaction follow-up KUB shows possible mild ileus. Creatinine at the time of admission is to improved to 1.4 today with IV fluids probably is going to be discharged tomorrow. 08/19/2019-no acute events in the last 24 hours. Afebrile. The nurse noticed swollen scrotum. Most likely hydrocele. We are going to do the scrotal ultrasound today. Blood cultures came back positive for gram-positive cocci. Started on IV Zosyn. In my opinion patient is to go to a rehab facility. Patient is bedbound. 02/2019-no acute events in the last 24 hours. Afebrile. Patient is more alert more awake. Blood cultures are positive for gram-positive cocci awaiting for the complete report. Patient is presently on IV Zosyn. 08/21/2019-no acute events in the last 24 hours. Afebrile. More alert more awake. Blood cultures are positive for gram-positive cocci in clusters waiting for the sensitivity report. Presently on IV Zosyn. Patient does not have any bowel movement for the last couple of days to give him a Fleet enema today. 08/22/2019-no acute events in the last 24 hours. Afebrile. Blood cultures are positive for gram-positive cocci in clusters on IV Zosyn. Plan is to continue the present management. Cultures came back positive for Staphylococcus hemolyticus sensitive to IV Rocephin Reason For Visit: ARF, ABD PAIN DIVERTICULTITIS Physical Exam Vital Signs: Temp Pulse Resp BP Pulse Ox 97.7 F 60 12 108/78 95 08/22/19 08:02 08/22/19 08:02 08/22/19 08:02 08/22/19 08:02 08/22/19 08:02 Intake & Output 08/21/19 08/22/19 08/23/19 06:59 06:59 06:59 Intake Total 400 1320 100 Output Total 1900 3950 Balance -1500 -2630 100 Weight 69.7 kg 70.3 kg General appearance: PRESENT: no acute distress Head exam: PRESENT: atraumatic Eye exam: PRESENT: PERRLA Mouth exam: PRESENT: moist, tongue midline Teeth exam: PRESENT: poor dentation Neck exam: ABSENT: carotid bruit, JVD, lymphadenopathy, thyromegaly Respiratory exam: PRESENT: decreased breath sounds Cardiovascular exam: PRESENT: RRR. ABSENT: diastolic murmur, rubs, systolic murmur GI/Abdominal exam: PRESENT: normal bowel sounds, soft. ABSENT: distended, guarding, mass, organolmegaly, rebound, tenderness Rectal exam: PRESENT: deferred Extremities exam: PRESENT: full ROM. ABSENT: calf tenderness, clubbing, pedal edema Neurological exam: PRESENT: alert, awake, oriented to person, oriented to place, oriented to time, oriented to situation, CN II-XII grossly intact. ABSENT: motor sensory deficit Psychiatric exam: PRESENT: appropriate affect, normal mood. ABSENT: homicidal ideation, suicidal ideation Results Laboratory Results: 08/22/19 04:48 08/22/19 04:48 08/22/19 08/22/19 04:48 04:48 WBC 6.0 RBC 3.98 L Hgb 12.7 L Hct 37.0 L MCV 93 MCH 31.9 MCHC 34.3 RDW 13.6 Plt Count 263 Seg Neutrophils % 60.4 Sodium 136.2 L Potassium 4.1 Chloride 100 Carbon Dioxide 27 Anion Gap 9 BUN 19 Creatinine 1.46 H Est GFR ( Amer) 57 L Glucose 83 Calcium 8.7 Magnesium 2.0 Total Bilirubin 0.9 AST 65 H Alkaline Phosphatase 126 Total Protein 5.8 L Albumin 2.8 L 08/16/19 15:54 Blood Blood Culture - Final Staphylococcus Haemolyticus 08/16/19 17:19 Blood Blood Culture - Final NO GROWTH IN 5 DAYS Impressions: Abdomen/Pelvis CT 08/16/19 00:00 IMPRESSION: 40.5 mm aneurysm of the infrarenal abdominal aorta. Recommend vascular consultation. Recommend follow-up in 1 year. Hip/Pelvis X-Ray 08/16/19 15:08 IMPRESSION: RIGHT HIP PROSTHESIS. DEGENERATIVE CHANGES IN THE LEFT HIP. NO ACUTE FINDINGS. KUB X-Ray 08/18/19 06:00 IMPRESSION: Nonspecific gas pattern. Mild ileus cannot be excluded. Scrotum Ultrasound 08/21/19 00:00 IMPRESSION: 1. VERY LARGE COMPLEX HYDROCELE ON THE LEFT CONTAINING EXTENSIVE DEBRIS. COMPLEX 9 MM EPIDIDYMAL CYST. NO EVIDENCE OF TESTICULAR MASS OR TORSION. 2. THE RIGHT TESTICLE IS DISPLACED INTO THE INGUINAL REGION. UNCLEAR IF THIS IS RELATED TO PRESSURE FROM THE LEFT HYDROCELE OR IF THIS IS THE USUAL ANATOMIC LOCATION OF THIS TESTICLE. NO EVIDENCE OF TESTICULAR MASS OR TORSION. Assessment and Plan - Diagnosis (1) Acute worsening of stage 3 chronic kidney disease Is this a current diagnosis for this admission?: Yes (2) Abdominal pain Qualifiers: Abdominal location: periumbilical Qualified Code(s): R10.33 - Periumbilical pain Is this a current diagnosis for this admission?: Yes (3) Constipation Qualifiers: Constipation type: unspecified constipation type Qualified Code(s): K59.00 - Constipation, unspecified Is this a current diagnosis for this admission?: Yes (4) Parkinson disease Is this a current diagnosis for this admission?: No - Plan Summary Summary: - Diagnosis (1) Acute worsening of stage 3 chronic kidney disease Is this a current diagnosis for this admission?: Yes Plan: Multifactorial secondary to prerenal azotemia and colchicine. Hydration, dis continue colchicine, follow-up chemistry 08/17/2019-patient's admission creatinine is 2.0 improved to 1.64 with IV fluids. Patient's creatinine is 1.5 on 06/18/2019. Worsened to 2.07 at the time of ad mission and improved to 1.64 today. AMMY most likely secondary to prerenal causes. pt has a Feldman's catheter. 08/18/2019-with IV fluids creatinine is improved from 2.0-1.4 today. Acute kidney injury most likely secondary to prerenal causes resolving. Patient has indwelling Feldman's catheter. 08/19/2019-patient's serum creatinine today is 1.33. Improving from the admission creatinine of 2.0. Acute kidney injury most likely secondary to prerenal causes resolving. Patient has indwelling Feldman's catheter. 02/2019-patient serum creatinine today is 1.32. His stable. Acute kidney injury is resolved. Patient is off the IV fluids at this point. 08/21/2019-patient latest serum creatinine is 1.32 acute kidney injury resolved to recheck the labs tomorrow. 08/22/2019 Serum creatinine is 1.46. Stable. Admission creatinine is 2.0. Plan is to continue to closely monitor the labs. (2) Abdominal pain Qualifiers: Abdominal location: periumbilical Qualified Code(s): R10.33 - Periumbilical pain Is this a current diagnosis for this admission?: Yes Plan: Secondary to severe constipation, enema and lactulose, try clear liquids 08/17/2019-patient admitted with abdominal pain most likely secondary to severe constipation which was resolving. 08/18/2019-patient admitted with severe abdominal pain associated nausea and vomiting's most likely secondary to severe constipation he was given lactulose, and LEANNA and mag citrate. Patient had a good bowel movements follow-up KUB done today shows mild ileus no constipation. 08/19/2019-no complaints of abdominal pain. KUB was done yesterday indicating nonspecific-gas pattern. 08/20/2019-patient admitted with abdominal pain follow-up KUB shows nonspecific gas pattern abdominal pain is resolved. 08/21/2019-admitted with abdominal pain KUB shows nonspecific gas pattern. Abdominal pain is resolved patient does not have any bowel movement for the last couple of days to give a Fleet enema. 04/2019-patient has good bowel movements yesterday. Did not receive any Fleet edema. (3) Constipation Qualifiers: Constipation type: unspecified constipation type Qualified Code(s): K59.00 - Constipation, unspecified Is this a current diagnosis for this admission?: Yes Plan: Fleet enema, lactulose, trial clear liquids 08/17/2019-patient receiving Fleet enema lactulose and a trial of clear liquids. Mag citrate is also requested. 08/18/2019-KUB done today shows nonspecific gas pattern. Ileus cannot be excluded. Presently on clear liquids. We are going to advance the diet today. 08/19/2019-KUB shows nonspecific gas pattern. Diet was advanced yesterday without any problems. 08/20/2019-constipation is resolved. 08/21/2019-patient does not have any bowel movement for the last 48 hours to give a Fleet enema today. 4.Parkinson's disease patient has history of Parkinson's disease which was chronic. To continue carbidopa/levodopa during the hospital stay. 5.Gout. he has a history of gout affecting the left elbow. Receiving colchicine and Uloric. On examination left elbow is swollen but not tender. 6.BPH Vision has history of BPH with indwelling Feldman's catheter. 7.hypertension Patient blood pressure today is 118/63. Stable. Plan is to continue the present management. 8.positive blood cultures Blood cultures are positive for gram-positive cocci in clusters. On IV Zosyn. Waiting for the sensitivity report. 08/21/2019-still waiting for the blood cultures sensitivity report present and IV Zosyn cultures are positive for gram-positive cocci in clusters. 08/22/2019-blood cultures came back positive for Staphylococcus hemolyticus stop Zosyn and start IV Rocephin 2 g daily. Probably will go back to the rehab facility tomorrow.
[2019-08-22] MEDS: FEBUXOSTAT 40 MG TABLET PO SCH (14:43)
[2019-08-22] MEDS: ATORVASTATIN CALCIUM 80 MG TABLET PO SCH (21:40)
[2019-08-23] MEDS: PANTOPRAZOLE SODIUM 20 MG TABLET.DR PO SCH (05:20)
[2019-08-23] MEDS: METOPROLOL SUCCINATE 25 MG TAB.SR.24H PO SCH (08:16)
[2019-08-23] MEDS: FINASTERIDE 5 MG TABLET PO SCH (08:16)
[2019-08-23] MEDS: TRAMADOL HCL 50 MG TABLET PO PRN ×2 (08:16→15:15)
[2019-08-23] MEDS: COLCHICINE 0.6 MG TABLET PO SCH (08:17)
[2019-08-23] MEDS: AMLODIPINE BESYLATE 10 MG TABLET PO SCH (08:17)
[2019-08-23] MEDS: CARBIDOPA/LEVODOPA 25-250 MG TABLET PO SCH ×2 (10:16→18:56)
[2019-08-23] MEDS: TAMSULOSIN HCL 0.4 MG CAP.SR.24H PO SCH ×2 (10:16→18:56)
[2019-08-23] MEDS: APIXABAN 5 MG TABLET PO SCH ×2 (10:16→18:56)
[2019-08-23] MEDS: CEFTRIAXONE 2 GM/D5W RTU 2 GM/50 ML RTUPB IV SCH (10:17)
--- NOTE | 2019-08-23 11:02 | PDOC PROGRESS REPORT ---
Subjective Progress Note for:: 08/23/19 Subjective:: 74 year old male with a past medical history of CKD 3, gout, hypertension, BPH and Parkinson's disease. He presents with abdominal pain and nausea and vomiting of gastric content. He was seen in the emergency room 24 hours ago for an exacerbation of gout in the right knee for which she received colchicine patient admits knee improved. However work-up reveals worsening chronic kidney disease and CT imaging reveals severe constipation. [facility] Patient is a poor historian and unable to provide additional history. 08/17/[id number]-hjft-old male with history of Parkinson's disease, CKD, gout, hypertension admitted with abdominal pain nausea vomiting CT scan shows severe constipation. He is getting lactulose and enemas. At the time of admission creatinine is 2.0 and improved to 1.64 with IV fluids. Patient is a poor historian all the same he is getting out of this place. No acute events in the last 24 hours. T-max is 98.9. Plan is to continue the present management and probably discharge him back to rehab facility tomorrow. 08/18/[id number]-fgbk-old male with multiple medical problems admitted with abdominal pain, nausea and vomitings CT scan shows severe constipation not fecal impaction follow-up KUB shows possible mild ileus. Creatinine at the time of admission is to improved to 1.4 today with IV fluids probably is going to be discharged tomorrow. 08/19/2019-no acute events in the last 24 hours. Afebrile. The nurse noticed swollen scrotum. Most likely hydrocele. We are going to do the scrotal ultrasound today. Blood cultures came back positive for gram-positive cocci. Started on IV Zosyn. In my opinion patient is to go to a rehab facility. Patient is bedbound. 02/2019-no acute events in the last 24 hours. Afebrile. Patient is more alert more awake. Blood cultures are positive for gram-positive cocci awaiting for the complete report. Patient is presently on IV Zosyn. 08/21/2019-no acute events in the last 24 hours. Afebrile. More alert more awake. Blood cultures are positive for gram-positive cocci in clusters waiting for the sensitivity report. Presently on IV Zosyn. Patient does not have any bowel movement for the last couple of days to give him a Fleet enema today. 08/22/2019-no acute events in the last 24 hours. Afebrile. Blood cultures are positive for gram-positive cocci in clusters on IV Zosyn. Plan is to continue the present management. Cultures came back positive for Staphylococcus hemolyticus sensitive to IV Rocephin 08/23/2019-no acute events in the last 24 hours. Afebrile. Cultures came back positive for staph hemolyticus sensitivity to IV Rocephin patient is afebrile. Patient may be to go back to the rehab facility tomorrow. Reason For Visit: ARF, ABD PAIN DIVERTICULTITIS Physical Exam Vital Signs: Temp Pulse Resp BP Pulse Ox 98.0 F 62 19 111/66 97 08/23/19 07:59 08/23/19 07:59 08/23/19 07:59 08/23/19 07:59 08/23/19 07:59 Intake & Output 08/22/19 08/23/19 08/24/19 06:59 06:59 06:59 Intake Total 1320 420 Output Total 3950 750 Balance -2630 -330 Weight 70.3 kg 69.8 kg General appearance: PRESENT: thin Head exam: PRESENT: atraumatic Eye exam: PRESENT: PERRLA Mouth exam: PRESENT: moist, tongue midline Teeth exam: PRESENT: poor dentation Neck exam: ABSENT: carotid bruit, JVD, lymphadenopathy, thyromegaly Respiratory exam: PRESENT: decreased breath sounds Cardiovascular exam: PRESENT: RRR. ABSENT: diastolic murmur, rubs, systolic murmur GI/Abdominal exam: PRESENT: normal bowel sounds, soft. ABSENT: distended, guarding, mass, organolmegaly, rebound, tenderness Rectal exam: PRESENT: deferred Gentrourinary exam: PRESENT: indwelling catheter Extremities exam: PRESENT: full ROM. ABSENT: calf tenderness, clubbing, pedal edema Neurological exam: PRESENT: alert, awake, oriented to person, oriented to place, oriented to time, oriented to situation, CN II-XII grossly intact. ABSENT: motor sensory deficit Psychiatric exam: PRESENT: appropriate affect, normal mood. ABSENT: homicidal ideation, suicidal ideation Results Laboratory Results: 08/22/19 04:48 08/22/19 04:48 Impressions: Abdomen/Pelvis CT 08/16/19 00:00 IMPRESSION: 40.5 mm aneurysm of the infrarenal abdominal aorta. Recommend vascular consultation. Recommend follow-up in 1 year. Hip/Pelvis X-Ray 08/16/19 15:08 IMPRESSION: RIGHT HIP PROSTHESIS. DEGENERATIVE CHANGES IN THE LEFT HIP. NO ACUTE FINDINGS. KUB X-Ray 08/18/19 06:00 IMPRESSION: Nonspecific gas pattern. Mild ileus cannot be excluded. Scrotum Ultrasound 08/21/19 00:00 IMPRESSION: 1. VERY LARGE COMPLEX HYDROCELE ON THE LEFT CONTAINING EXTENSIVE DEBRIS. COMPLEX 9 MM EPIDIDYMAL CYST. NO EVIDENCE OF TESTICULAR MASS OR TORSION. 2. THE RIGHT TESTICLE IS DISPLACED INTO THE INGUINAL REGION. UNCLEAR IF THIS IS RELATED TO PRESSURE FROM THE LEFT HYDROCELE OR IF THIS IS THE USUAL ANATOMIC LOCATION OF THIS TESTICLE. NO EVIDENCE OF TESTICULAR MASS OR TORSION. Assessment and Plan - Diagnosis (1) Acute worsening of stage 3 chronic kidney disease Is this a current diagnosis for this admission?: Yes (2) Abdominal pain Qualifiers: Abdominal location: periumbilical Qualified Code(s): R10.33 - Periumbilical pain Is this a current diagnosis for this admission?: Yes (3) Constipation Qualifiers: Constipation type: unspecified constipation type Qualified Code(s): K59.00 - Constipation, unspecified Is this a current diagnosis for this admission?: Yes (4) Parkinson disease Is this a current diagnosis for this admission?: No - Plan Summary Summary: - Diagnosis (1) Acute worsening of stage 3 chronic kidney disease Is this a current diagnosis for this admission?: Yes Plan: Multifactorial secondary to prerenal azotemia and colchicine. Hydration, discontinue colchicine, follow-up chemistry 08/17/2019-patient's admission creatinine is 2.0 improved to 1.64 with IV fluids. Patient's creatinine is 1.5 on 06/18/2019. Worsened to 2.07 at the time of admission and improved to 1.64 today. AMMY most likely secondary to prerenal causes. pt has a Feldman's catheter. 08/18/2019-with IV fluids creatinine is improved from 2.0-1.4 today. Acute kidney injury most likely secondary to prerenal causes resolving. Patient has indwelling Feldman's catheter. 08/19/2019-patient's serum creatinine today is 1.33. Improving from the admission creatinine of 2.0. Acute kidney injury most likely secondary to prerenal causes resolving. Patient has indwelling Feldman's catheter. 02/2019-patient serum creatinine today is 1.32. His stable. Acute kidney injury is resolved. Patient is off the IV fluids at this point. 08/21/2019-patient latest serum creatinine is 1.32 acute kidney injury resolved to recheck the labs tomorrow. 08/22/2019 Serum creatinine is 1.46. Stable. Admission creatinine is 2.0. Plan is to continue to closely monitor the labs. 08/23/2019-patient serum creatinine today is 0.46 stable. Acute kidney injury is resolving. (2) Abdominal pain Qualifiers: Abdominal location: periumbilical Qualified Code(s): R10.33 - Periumbilical pain Is this a current diagnosis for this admission?: Yes Plan: Secondary to severe constipation, enema and lactulose, try clear liquids 08/17/2019-patient admitted with abdominal pain most likely secondary to severe constipation which was resolving. 08/18/2019-patient admitted with severe abdominal pain associated nausea and vomiting's most likely secondary to severe constipation he was given lactulose, and LEANNA and mag citrate. Patient had a good bowel movements follow-up KUB done today shows mild ileus no constipation. 08/19/2019-no complaints of abdominal pain. KUB was done yesterday indicating nonspecific-gas pattern. 08/20/2019-patient admitted with abdominal pain follow-up KUB shows nonspecific gas pattern abdominal pain is resolved. 08/21/2019-admitted with abdominal pain KUB shows nonspecific gas pattern. Abdominal pain is resolved patient does not have any bowel movement for the last couple of days to give a Fleet enema. 08/22/2019-patient has good bowel movements yesterday. Did not receive any Fleet edema. 08/23/2019-patient admitted with abdominal pain most likely secondary to fecal impaction and severe constipation patient has a good bowel movements. Abdominal pain is resolved. (3) Constipation Qualifiers: Constipation type: unspecified constipation type Qualified Code(s): K59.00 - Constipation, unspecified Is this a current diagnosis for this admission?: Yes Plan: Fleet enema, lactulose, trial clear liquids 08/17/2019-patient receiving Fleet enema lactulose and a trial of clear liquids. Mag citrate is also requested. 08/18/2019-KUB done today shows nonspecific gas pattern. Ileus cannot be excluded. Presently on clear liquids. We are going to advance the diet today. 08/19/2019-KUB shows nonspecific gas pattern. Diet was advanced yesterday without any problems. 08/20/2019-constipation is resolved. 08/21/2019-patient does not have any bowel movement for the last 48 hours to give a Fleet enema today. 4.Parkinson's disease patient has history of Parkinson's disease which was chronic. To continue carbidopa/levodopa during the hospital stay. 5.Gout. he has a history of gout affecting the left elbow. Receiving colchicine and Uloric. On examination left elbow is swollen but not tender. 6.BPH Vision has history of BPH with indwelling Feldman's catheter. 7.hypertension Patient blood pressure today is 118/63. Stable. Plan is to continue the present management. 08/23/2019-patient blood pressure today is 125/54. Stable. Plan is to continue the present management. 8.positive blood cultures Blood cultures are positive for gram-positive cocci in clusters. On IV Zosyn. Waiting for the sensitivity report. 08/21/2019-still waiting for the blood cultures sensitivity report present and IV Zosyn cultures are positive for gram-positive cocci in clusters. 08/23/2019-blood cultures came back positive for Staphylococcus hemolyticus stop Zosyn and start IV Rocephin 2 g daily. Probably will go back to the rehab facility tomorrow.
[2019-08-23] MEDS: FEBUXOSTAT 40 MG TABLET PO SCH (15:15)
[2019-08-23] MEDS: ATORVASTATIN CALCIUM 80 MG TABLET PO SCH (22:39)
[2019-08-24] MEDS: PANTOPRAZOLE SODIUM 20 MG TABLET.DR PO SCH (06:37)
[2019-08-24] MEDS: APIXABAN 5 MG TABLET PO SCH ×2 (09:01→17:00)
[2019-08-24] MEDS: TAMSULOSIN HCL 0.4 MG CAP.SR.24H PO SCH ×2 (09:01→17:00)
[2019-08-24] MEDS: CARBIDOPA/LEVODOPA 25-250 MG TABLET PO SCH ×2 (09:02→17:00)
[2019-08-24] MEDS: COLCHICINE 0.6 MG TABLET PO SCH (09:02)
[2019-08-24] MEDS: METOPROLOL SUCCINATE 25 MG TAB.SR.24H PO SCH (09:02)
[2019-08-24] MEDS: FINASTERIDE 5 MG TABLET PO SCH (09:02)
[2019-08-24] MEDS: AMLODIPINE BESYLATE 10 MG TABLET PO SCH (09:02)
[2019-08-24] MEDS: CEFTRIAXONE 2 GM/D5W RTU 2 GM/50 ML RTUPB IV SCH (09:04)
[2019-08-24] MEDS: FEBUXOSTAT 40 MG TABLET PO SCH (14:40)
--- NOTE | 2019-08-24 14:50 | PDOC TRANSFER SUMMARY ---
Impression - Admit/DC Date/PCP Admission Date/Primary Care Provider: 08/19/19 15:25 REDD MÉNDEZ MD Discharge Date: 08/24/19 - Discharge Diagnosis (1) BPH (benign prostatic hyperplasia) Is this a current diagnosis for this admission?: Yes (2) Hypertension Is this a current diagnosis for this admission?: Yes (3) Bacteremia Is this a current diagnosis for this admission?: Yes (4) Abdominal pain Is this a current diagnosis for this admission?: Yes (5) Acute worsening of stage 3 chronic kidney disease Is this a current diagnosis for this admission?: Yes (6) Constipation Is this a current diagnosis for this admission?: Yes (7) Gout of left elbow Is this a current diagnosis for this admission?: Yes (8) Parkinson disease Is this a current diagnosis for this admission?: Yes (9) AAA (abdominal aortic aneurysm) without rupture Is this a current diagnosis for this admission?: Yes (10) Hydrocele in adult Is this a current diagnosis for this admission?: Yes - Additional Information Resuscitation Status: Full Code Discharge Diet: Cardiac Discharge Activity: Activity As Tolerated Referrals: [facility] [Outside] Home Medications: Amlodipine Besylate [Norvasc 10 mg Tablet] 10 mg PO QAM 08/17/19 Apixaban [Eliquis 5 mg Tablet] 5 mg PO BID 08/17/19 Atorvastatin Calcium [Lipitor 80 mg Tablet] 80 mg PO QHS 08/17/19 Carbidopa/Levodopa [Sinemet 25-250 mg Tablet] 1 each PO BID 08/17/19 Colchicine [Colcrys 0.6 mg Tablet] 0.6 mg PO QAM 08/17/19 Fesoterodine Fumarate [Toviaz] 4 mg PO QAM 08/17/19 Finasteride [Proscar] 5 mg PO QAM 08/17/19 Metoprolol Succinate [Toprol Xl 25 mg Tab.sr] 25 mg PO QAM 08/17/19 Omeprazole 20 mg PO QAM 08/17/19 Ondansetron HCl [Zofran 4 mg Tablet] 4 mg PO Q8HP PRN 08/17/19 Tamsulosin HCl [Flomax] 0.4 mg PO BID 08/17/19 Tramadol HCl [Ultram] 50 mg PO Q6HP PRN 08/17/19 Acetaminophen [Tylenol 325 mg Tablet] 650 mg PO Q4HP PRN tablet 08/24/19 History of Present Illiness History of Present Illness: Per H&P by Dr. Couch: NELI WIGGINS SR is a 74 year old male with a past medical history of CKD 3, gout, hypertension, BPH and Parkinson's disease. He presents with abdominal pain and nausea and vomiting of gastric content. He was seen in the emergency room 24 hours ago for an exacerbation of gout in the right knee for which she received colchicine patient admits knee improved. However work-up reveals worsening chronic kidney disease and CT imaging reveals severe constipation. He is referred to the hospitalist for observation. Patient is a poor historian and unable to provide additional history. Hospital Course Hospital Course: The patient was admitted to the medical floor on continuous cardiac telemetry. His abdominal discomfort was evaluated with CT which demonstrated a 4 cm AAA with recommendation for vascular consultation and one-year follow-up, severe constipation, but otherwise benign abdomen. Hip/pelvic x-ray showed right hip prosthesis with degenerative changes to the left but no acute findings. KUB revealed a nonspecific gas pattern with mild ileus not excluded. Scrotal ultrasound scrotum ultrasound revealed a large complex hydrocele on the left containing extensive debris and a complex 9 mm epididymal cyst without evidence of mass or torsion. The right testicle was displaced into the inguinal region; unclear if this is related to the left hydrocele or is an unusual the usual location for this testicle. Again no evidence of testicular mass or torsion. The patient's constipation was managed with lactulose, LEANNA, mag citrate, and enema with resultant large bowel movement and follow-up KUB demonstrated resolution of his constipation. The patient's abdominal discomfort nausea and vomiting have subsequently abated and he is now tolerating a regular diet without difficulty. The patient's acute worsening of CKD 3 was determined to be related to prerenal azotemia and colchicine. His colchicine was placed on hold and he was provided IV fluids. Patient's baseline creatinine determined to be 1.9; creatinine improved to 1.46 at last laboratory evaluation prior to discharge. He does continue to have good urinary output. The patient's home medication regiment for his Parkinson's disease, BPH, and hypertension was continued. The patient's home dose colchicine has been resumed due to gout flare to left elbow. Renal function remains acceptable. The patient was found to have bacteremia; Staphylococcus haemolyticus (1/4 bottles) is determined to be a contaminant. He was empirically placed on Zosyn and then Rocephin; however, does not require continued antibiotic therapy at discharge. The patient is discharged to [facility], where he is an established resident, in stable condition. He is advised to follow-up with his primary care provider within 1 week, With nephrology within 2 weeks, and with urology as needed. The patient and PCP Should also consider vascular consultation and yearly surveillance screenings for his AAA. Patient is instructed to take his medications as prescribed. Eat a cardiac/prerenal diet. Return to the emergency department as needed for concerning symptoms. Physical Exam Vital Signs: Temp Pulse Resp BP Pulse Ox 97.6 F 64 16 113/49 L 97 08/24/19 08:21 08/24/19 08:21 08/23/19 20:30 08/24/19 08:21 08/24/19 08:21 Intake & Output 08/23/19 08/24/19 08/25/19 06:59 06:59 06:59 Intake Total 949 166 7559 Output Total 750 1000 Balance -330 -270 1050 Weight 69.8 kg 70 kg General appearance: PRESENT: no acute distress, cooperative, thin, well- developed, well-nourished Head exam: PRESENT: atraumatic, normocephalic Eye exam: PRESENT: conjunctiva pink, EOMI, PERRLA. ABSENT: scleral icterus Mouth exam: PRESENT: moist, tongue midline Neck exam: ABSENT: carotid bruit, JVD, lymphadenopathy, thyromegaly Respiratory exam: PRESENT: clear to auscultation haider, symmetrical, unlabored. ABSENT: rales, rhonchi, wheezes Cardiovascular exam: PRESENT: RRR, +S1, +S2. ABSENT: diastolic murmur, rubs, systolic murmur Pulses: PRESENT: normal dorsalis pedis pul Vascular exam: PRESENT: normal capillary refill GI/Abdominal exam: PRESENT: normal bowel sounds, soft. ABSENT: distended, guarding, mass, organolmegaly, rebound, tenderness Rectal exam: PRESENT: deferred Extremities exam: PRESENT: full ROM. ABSENT: calf tenderness, clubbing, pedal edema Neurological exam: PRESENT: alert, awake, oriented to person, oriented to place, oriented to time, oriented to situation, CN II-XII grossly intact. ABSENT: motor sensory deficit Psychiatric exam: PRESENT: appropriate affect, normal mood. ABSENT: homicidal ideation, suicidal ideation Skin exam: PRESENT: dry, intact, warm. ABSENT: cyanosis, rash Results Laboratory Results: WBC 6.0 10^3/uL (4.0-10.5) 08/22/19 04:48 RBC 3.98 10^6/uL (4.35-5.55) L 08/22/19 04:48 Hgb 12.7 g/dL (13.5-17.0) L 08/22/19 04:48 Hct 37.0 % (37.9-51.0) L 08/22/19 04:48 MCV 93 fl (80-97) 08/22/19 04:48 MCH 31.9 pg (27.0-33.4) 08/22/19 04:48 MCHC 34.3 g/dL (32.0-36.0) 08/22/19 04:48 RDW 13.6 % (11.5-14.0) 08/22/19 04:48 Plt Count 263 10^3/uL (150-450) 08/22/19 04:48 Lymph % (Auto) 26.1 % (13-45) 08/22/19 04:48 [place] % (Auto) 7.9 % (3-13) 08/22/19 04:48 Eos % (Auto) 4.8 % (0-6) 08/22/19 04:48 Baso % (Auto) 0.8 % (0-2) 08/22/19 04:48 Absolute Neuts (auto) 3.6 10^3/uL (1.7-8.2) 08/22/19 04:48 Absolute Lymphs (auto) 1.6 10^3/uL (0.5-4.7) 08/22/19 04:48 Absolute Monos (auto) 0.5 10^3/uL (0.1-1.4) 08/22/19 04:48 Absolute Eos (auto) 0.3 10^3/uL (0.0-0.6) 08/22/19 04:48 Absolute Basos (auto) 0.0 10^3/uL (0.0-0.2) 08/22/19 04:48 Seg Neutrophils % 60.4 % (42-78) 08/22/19 04:48 PT 23.0 SEC (11.4-15.4) H 08/16/19 15:54 INR 2.00 08/16/19 15:54 VBG pH 7.40 (7.30-7.42) 08/16/19 15:54 VBG pCO2 41.0 mmHg (35-63) 08/16/19 15:54 VBG HCO3 25.0 mmol/L (20-32) 08/16/19 15:54 VBG Base Excess 0.2 mmol/L 08/16/19 15:54 Sodium 136.2 mmol/L (137-145) L 08/22/19 04:48 Potassium 4.1 mmol/L (3.6-5.0) 08/22/19 04:48 Chloride 100 mmol/L (98-107) 08/22/19 04:48 Carbon Dioxide 27 mmol/L (22-30) 08/22/19 04:48 Anion Gap 9 (5-19) 08/22/19 04:48 BUN 19 mg/dL (7-20) 08/22/19 04:48 Creatinine 1.46 mg/dL (0.52-1.25) H 08/22/19 04:48 Est GFR ( Amer) 57 (>60) L 08/22/19 04:48 Est GFR (MDRD) Non-Af 47 (>60) L 08/22/19 04:48 Glucose 83 mg/dL (75-110) 08/22/19 04:48 Lactic Acid 1.4 mmol/L (0.7-2.1) 08/16/19 15:54 Calcium 8.7 mg/dL (8.4-10.2) 08/22/19 04:48 Magnesium 2.0 mg/dL (1.6-2.3) 08/22/19 04:48 Total Bilirubin 0.9 mg/dL (0.2-1.3) 08/22/19 04:48 Direct Bilirubin 0.4 mg/dL (0.0-0.4) 08/22/19 04:48 Neonat Total Bilirubin Not Reportable 08/22/19 04:48 Neonat Direct Bilirubin Not Reportable 08/22/19 04:48 Neonat Indirect Bili Not Reportable 08/22/19 04:48 AST 65 U/L (17-59) H 08/22/19 04:48 ALT 14 U/L (<50) 08/22/19 04:48 Alkaline Phosphatase 126 U/L (38-126) 08/22/19 04:48 Total Protein 5.8 g/dL (6.3-8.2) L 08/22/19 04:48 Albumin 2.8 g/dL (3.5-5.0) L 08/22/19 04:48 Lipase 89.1 U/L (23-300) 08/16/19 15:54 Urine Color YELLOW 08/16/19 20:55 Urine Appearance CLEAR 08/16/19 20:55 Urine pH 5.0 (5.0-9.0) 08/16/19 20:55 Ur Specific [place] 1.041 08/16/19 20:55 Urine Protein NEGATIVE mg/dL (NEGATIVE) 08/16/19 20:55 Urine Glucose (UA) NEGATIVE mg/dL (NEGATIVE) 08/16/19 20:55 Urine Ketones NEGATIVE mg/dL (NEGATIVE) 08/16/19 20:55 Urine Blood MODERATE (NEGATIVE) H 08/16/19 20:55 Urine Nitrite NEGATIVE (NEGATIVE) 08/16/19 20:55 Urine Bilirubin NEGATIVE (NEGATIVE) 08/16/19 20:55 Urine Urobilinogen NEGATIVE mg/dL (<2.0) 08/16/19 20:55 Ur Leukocyte Esterase NEGATIVE (NEGATIVE) 08/16/19 20:55 Urine WBC (Auto) 3 /HPF 08/16/19 20:55 Urine RBC (Auto) 14 /HPF 08/16/19 20:55 U Hyaline Cast (Auto) 3 /LPF 08/16/19 20:55 Urine Mucus (Auto) RARE /LPF 08/16/19 20:55 Urine Ascorbic Acid NEGATIVE (NEGATIVE) 08/16/19 20:55 Impressions: Abdomen/Pelvis CT 08/16/19 00:00 IMPRESSION: 40.5 mm aneurysm of the infrarenal abdominal aorta. Recommend vascular consultation. Recommend follow-up in 1 year. Hip/Pelvis X-Ray 08/16/19 15:08 IMPRESSION: RIGHT HIP PROSTHESIS. DEGENERATIVE CHANGES IN THE LEFT HIP. NO ACUTE FINDINGS. KUB X-Ray 08/18/19 06:00 IMPRESSION: Nonspecific gas pattern. Mild ileus cannot be excluded. Scrotum Ultrasound 08/21/19 00:00 IMPRESSION: 1. VERY LARGE COMPLEX HYDROCELE ON THE LEFT CONTAINING EXTENSIVE DEBRIS. COMPLEX 9 MM EPIDIDYMAL CYST. NO EVIDENCE OF TESTICULAR MASS OR TORSION. 2. THE RIGHT TESTICLE IS DISPLACED INTO THE INGUINAL REGION. UNCLEAR IF THIS IS RELATED TO PRESSURE FROM THE LEFT HYDROCELE OR IF THIS IS THE USUAL ANATOMIC LOCATION OF THIS TESTICLE. NO EVIDENCE OF TESTICULAR MASS OR TORSION. Plan Plan of Treatment: The patient is discharged to [facility] where he is an established resident. Follow-up with forest products gatherer within 2 weeks. Follow up with Urology as needed. Outpatient vascular surgery consultation and yearly surveillance of AAA Take medications as prescribed. Eat a cardiac/prerenal diet. Return to the emergency department as needed for concerning symptoms. Time Spent: Greater than 30 Minutes Stroke Is this a Stroke Patient?: No Acute Heart Failure - Is this a Heart Failure Patient?: No
[2019-08-24 15:30] VITALS: BP 117/57
== END 2019-08-24 17:51 | DRG 683 ==
LOC: ER 14:20 → EH 22:27 → 5 08-17 00:58 → OBSVTOIN 08-19 15:25
PROVIDERS: ADMIT Internal Medicine; ATTEND Internal Medicine
PROC: 3E0234Z Introduction of Serum, Toxoid and Vaccine into Muscle, Percutaneous Approach (ICD-10-PCS; principal; 2019-08-24)
DX: N17.9 Acute kidney failure, unspecified (principal); K56.7 Ileus, unspecified; N18.3 Chronic kidney disease, stage 3 (moderate); N43.3 Hydrocele, unspecified; M10.9 Gout, unspecified; I12.9 Hypertensive chronic kidney disease with stage 1 through stage 4 chronic kidney disease, or unspecified chronic kidney disease; N40.0 Benign prostatic hyperplasia without lower urinary tract symptoms; I71.4 Abdominal aortic aneurysm, without rupture; G20 Parkinson's disease; K59.00 Constipation, unspecified; M25.561 Pain in right knee; Z23 Encounter for immunization; Z86.73 Personal history of transient ischemic attack (TIA), and cerebral infarction without residual deficits; Z79.01 Long term (current) use of anticoagulants; Z79.899 Other long term (current) drug therapy
CPT/HCPCS: 36415; 74018; 74177; 76870; 80048; 80053; 81001; 82803; 83605; 83690; 83735; 85025; 85610; 87040; 87077; 87086; 87186; 90686; 93005; 93010; 96360; 99285; C1758; G0378; J0696; J1940; J2405; J2543; J3490; J7030; J7050

== ENCOUNTER 2019-10-11 10:35 | Inpatient (IN) | payer MEDICARE, MEDICAID ==
--- NOTE | 2019-10-11 12:06 | RADIOLOGY REPORT (SQ) ---
EXAM DESCRIPTION: ELBOW RIGHT OVER 2 VIEWS COMPLETED DATE/TIME: 10/11/2019 11:48 am REASON FOR STUDY: fall with redness and pain to site COMPARISON: None. NUMBER OF VIEWS: Four views. TECHNIQUE: AP, lateral, and both oblique radiographic images acquired of the right elbow. LIMITATIONS: None. FINDINGS: MINERALIZATION: Normal. BONES: No acute fracture or dislocation. Prominent spur on olecranon. No worrisome bone lesions. JOINT: No effusion. SOFT TISSUES: Posterior soft tissue swelling. No foreign body. OTHER: No other significant finding. IMPRESSION: POSTERIOR SOFT TISSUE SWELLING. NO ACUTE BONY FINDINGS. TECHNICAL DOCUMENTATION: JOB ID: [id number] [employer]- All Rights Reserved Reading location - IP/workstation name: [email or web address]
--- NOTE | 2019-10-11 12:07 | RADIOLOGY REPORT (SQ) ---
EXAM DESCRIPTION: KNEE RIGHT 2 VIEWS COMPLETED DATE/TIME: 10/11/2019 11:48 am REASON FOR STUDY: fall and tenderness to site COMPARISON: None. NUMBER OF VIEWS: Two views. TECHNIQUE: AP and lateral radiographic images acquired of the right knee. LIMITATIONS: None. FINDINGS: MINERALIZATION: Normal. BONES: No acute fracture or dislocation. Joint space narrowing with small osteophytes. No worrisome bone lesions. JOINT: No effusion. SOFT TISSUES: No soft tissue swelling. No radio-opaque foreign body. OTHER: No other significant finding. IMPRESSION: DEGENERATIVE JOINT DISEASE. NO RADIOGRAPHIC EVIDENCE OF ACUTE INJURY. TECHNICAL DOCUMENTATION: JOB ID: [id number] [employer]- All Rights Reserved Reading location - IP/workstation name: [email or web address]
--- NOTE | 2019-10-11 12:08 | RADIOLOGY REPORT (SQ) ---
EXAM DESCRIPTION: HIP RIGHT AP/LATERAL COMPLETED DATE/TIME: 10/11/2019 11:48 am REASON FOR STUDY: fall on hip replacement COMPARISON: None. NUMBER OF VIEWS: Two views. TECHNIQUE: AP pelvis and additional frog-leg view of the right hip. LIMITATIONS: None. FINDINGS: MINERALIZATION: Normal. RIGHT HIP: No fracture or dislocation. Intact prosthesis. No worrisome bone lesions. LEFT HIP: No fracture or dislocation. Degenerative changes. No worrisome bone lesions. PUBIS AND ISCHIUM: No fracture. PELVIS: No fracture. SACRUM: No fracture or dislocation. No worrisome bone lesions. LOWER LUMBAR SPINE: No fracture or dislocation. No worrisome bone lesions. No significant disc disea se. SOFT TISSUES: No findings. OTHER: No other significant finding. IMPRESSION: INTACT RIGHT HIP PROSTHESIS. NO RADIOGRAPHIC EVIDENCE OF ACUTE INJURY. TECHNICAL DOCUMENTATION: JOB ID: [id number] [employer]- All Rights Reserved Reading location - IP/workstation name: [email or web address]
[2019-10-11 14:21] LABS: ABSOLUTE LYMPHOCYTES (AUTO) 0.8 10^3/uL (0.5-4.7); ABSOLUTE MONOCYTES (AUTO) 0.7 10^3/uL (0.1-1.4); ABSOLUTE NEUT (AUTO) 13.2 10^3/uL (1.7-8.2); BASOPHILS % (AUTO) 0.2 % (0-2); HEMATOCRIT 38.4 % (37.9-51.0); HEMOGLOBIN 12.6 g/dL (13.5-17.0); LYMPHOCYTES % (AUTO) 5.4 % (13-45); MEAN CORPUSCULAR HEMOGLOBIN 30.8 pg (27.0-33.4); MEAN CORPUSCULAR HGB CONC 32.7 g/dL (32.0-36.0); MEAN CORPUSCULAR VOLUME 94 fl (80-97); PLATELET COUNT 277 10^3/uL (150-450); RED BLOOD COUNT 4.08 10^6/uL (4.35-5.55); RED CELL DISTRIBUTION WIDTH 15.2 % (11.5-14.0); SEGMENTED NEUTROPHILS % (AUTO) 89.4 % (42-78); TOTAL CELLS COUNTED % (AUTO) 100 %; WHITE BLOOD COUNT 14.7 10^3/uL (4.0-10.5)
--- NOTE | 2019-10-11 14:25 | RADIOLOGY REPORT (SQ) ---
EXAM DESCRIPTION: CT HEAD WITHOUT COMPLETED DATE/TIME: 10/11/2019 2:16 pm REASON FOR STUDY: Fall, altered mental status, on Eliquis COMPARISON: None. TECHNIQUE: Axial images acquired through the brain without intravenous contrast. Images reviewed wi th bone, brain and subdural windows. Additional sagittal and coronal reconstructions were generated. Images stored on PACS. All CT scanners at this facility use dose modulation, iterative reconstruction, and/or weight based d osing when appropriate to reduce radiation dose to as low as reasonably achievable (ALARA). [facility]: Dose Right [facility]: CareDose [facility]: Dose Right [facility]: Teradose 4D [facility]: Terabit Radios RADIATION DOSE: CT Rad equipment meets quality standard of care and radiation dose reduction techniq ues were employed. CTDIvol: 53.2 mGy. DLP: 1044 mGy-cm.mGy. LIMITATIONS: None. FINDINGS: VENTRICLES: Prominent. CEREBRUM: No masses. No hemorrhage. No midline shift. Areas of low density in the white matter mos t likely due to chronic micro-vascular ischemic change. Old lacunar infarcts. No evidence for acute infarction. CEREBELLUM: No masses. No hemorrhage. No alteration of density. No evidence for acute infarction. EXTRAAXIAL SPACES: Age-related involutional change. No fluid collections. No masses. ORBITS AND GLOBE: No intra- or extraconal masses. Normal contour of globe without masses. CALVARIUM: No fracture. PARANASAL SINUSES: No fluid or mucosal thickening. SOFT TISSUES: No mass or hematoma. OTHER: No other significant finding. IMPRESSION: CHRONIC CHANGES OF ATROPHY AND MICROVASCULAR ISCHEMIA. OLD LACUNAR INFARCTS. NO ACUTE PROCESS. EVIDENCE OF ACUTE STROKE: NO. TECHNICAL DOCUMENTATION: JOB ID: [id number] Quality ID # [id number]: Final reports with documentation of one or more dose reduction techniques (e.g., Au tomated exposure control, adjustment of the mA and/or kV according to patient size, use of iterative reconstruction technique) 2010 [employer]- All Rights Reserved Reading location - IP/workstation name: [email or web address]
[2019-10-11 14:43] LABS: ALKALINE PHOSPHATASE 158 U/L (38-126); ANION GAP 13 (5-19); ASPARTATE AMINO TRANSFERASE 121 U/L (17-59); BILIRUBIN,DIRECT 0.4 mg/dL (0.0-0.4); BILIRUBIN,TOTAL 0.9 mg/dL (0.2-1.3); BLOOD UREA NITROGEN 78 mg/dL (7-20); CALCIUM 9.4 mg/dL (8.4-10.2); CARBON DIOXIDE 25 mmol/L (22-30); CHLORIDE 108 mmol/L (98-107); CREATINE KINASE 850 U/L (55-170); GLUCOSE 152 mg/dL (75-110); POTASSIUM 5.3 mmol/L (3.6-5.0); TOTAL PROTEIN 6.6 g/dL (6.3-8.2); URIC ACID 12.8 mg/dL (3.5-8.5)
[2019-10-11 15:00] LABS: ERYTHROCYTE SEDIMENTATION RATE 104 mm/hr (0-20)
--- NOTE | 2019-10-11 15:10 | ER Document Report ---
Entered by WAYNE RANDALL SCRIBE 10/11/19 1345 Acting as scribe for:MELODIE MAX MD ED General - General Mode of Arrival: Medic Information source: Patient, Relative, Emergency Med Personnel, [facility] Records Cannot obtain history due to: Dementia TRAVEL OUTSIDE OF THE [place] IN LAST 30 DAYS: No <MELODIE MAX - Last Filed: 10/11/19 17:43> <ANAYA PEREYRA - Last Filed: 10/11/19 18:27> - General Chief Complaint: Fall Injury Stated Complaint: RIGHT LEG PAIN Time Seen by Provider: 10/11/19 13:29 Primary Care Provider: MATHEUS EVANS MD [Primary Care Provider] - Follow up as needed Notes: This 74-year-old male patient is brought to the emergency room from the custodial for severe pain in his right knee. Family reports he has been going downhi ll, and is losing weight. He went into the custodial in May for stroke rehab. He was seen in the emergency room and admitted on 08/20/2019 with gout in his left elbow and worsening renal function.. On 10/02/2019 he fell onto his right side at the custodial. At some time after that he began having the pain and swelling to his right elbow and right knee with pain over his right hip. 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 The son reports that the patient has been on Uloric, and allopurinol, and he thinks he may be getting 1 or both of those drugs when he has a gout attack, and that he is on colchicine regularly for his gout. Reviewing the custodial records, the patient does get colchicine daily, he is not on any uricosuric agents. Patient does have Parkinson's, and dementia, and suffered a stroke earlier this year. (MELODIE MAX) - Related Data Allergies/Adverse Reactions: No Known Allergies Allergy (Unverified 05/27/18 12:57) Past Medical History - General Information source: Patient, Relative, Emergency Med Personnel, [facility] Records - Social History Smoking Status: Unknown if Ever Smoked Cigarette use (# per day): No Chew tobacco use (# tins/day): No Smoking Education Provided: No Frequency of alcohol use: None Lives with: [facility] Family History: Hypertension Patient has suicidal ideation: No Patient has homicidal ideation: No - Past Medical History Cardiac Medical History: Reports: Hx Hypertension Neurological Medical History: Reports: Hx Cerebrovascular Accident - 12/2017 STROKE BEHIND LEFT EYE/NO DEFICEIT, Hx Parkinson's Disease, Other - Dementia Renal/ Medical History: Reports: Hx Benign Prostatic Hyperplasia, Hx Renal Insufficiency GI Medical History: Reports: Hx Gastroesophageal Reflux Disease Musculoskeletal Medical History: Reports Hx Arthritis, Reports Hx Gout Psychiatric Medical History: Reports: Hx Dementia Past Surgical History: Reports: Hx Orthopedic Surgery - Right hip, Hx Vascular Surgery - Left carotid endarterectomy - Immunizations Hx Diphtheria, Pertussis, Tetanus Vaccination: No <MELODIE MAX - Last Filed: 10/11/19 17:43> Review of Systems - Review of Systems Constitutional: Weakness EENT: Other - Problems with vision in one eye after his stroke Cardiovascular: No symptoms reported Respiratory: No symptoms reported Gastrointestinal: No symptoms reported Musculoskeletal: See HPI Skin: No symptoms reported Hematologic/Lymphatic: No symptoms reported Neurological/Psychological: Dementia <MELODIE MAX - Last Filed: 10/11/19 17:43> Physical Exam <MELODIE MAX - Last Filed: 10/11/19 17:43> - Vital signs Vitals: Resp Pulse Ox 17 99 10/11/19 11:09 10/11/19 11:09 - Notes Notes: Physical Exam: General: Alert. HEENT: Normocephalic. Atraumatic. PERRL. Extraocular movements intact. Oropharynx clear. Mouth appears very dry. Neck: Supple. Non-tender. Respiratory: No respiratory distress. Clear and equal breath sounds bilaterally. Cardiovascular: Regular rate and rhythm. Abdominal: Normal Inspection. Non-tender. No distension. Normal Bowel Sounds. Back: No gross abnormalities. Extremities: Moves all four extremities. Upper extremities: Right olecranon bursa is erythematous, grossly swollen, with a white central area over the mid posterior elbow, which is somewhat tender with palpation. Left olecranon is erythematous but less swollen. There is more tenderness over the left elbow when compared to the right. Lower extremities: Over the right hip just posterior and distal to where the greater trochanter would be there is an area of central bruising with surrounding erythema. Right knee is grossly swollen and exquisitely tender with palpation. Skin: Warm. Dry. Normal color. (MELODIE MAX) Course - Laboratory Result Diagrams: 10/11/19 14:01 10/11/19 14:01 - Diagnostic Test Radiology reviewed: Image reviewed, Reports reviewed - CT scan shows old lacunar infarcts with microvascular ischemia with no acute changes. X-rays of the right elbow and right knee show arthritic changes with nothing acute. - EKG Interpretation by Me EKG shows normal: Sinus rhythm, [place], Intervals, QRS Complexes. abnormal: ST-T Waves - Nonspecific lateral T abnormalities Rate: Tachycardia Rhythm: PVC's [place]/QRS: LAHB/LAFB - Consults Dr. Long Time consulted: 15:25 Consulted provider: will see as inpatient Dr. Avilez Time consulted: 16:55 Consulted provider: will come to ER <MELODIE MAX - Last Filed: 10/11/19 17:43> - Laboratory Result Diagrams: 10/11/19 14:01 10/11/19 14:01 <AANYA PEREYRA - Last Filed: 10/11/19 18:27> - Re-evaluation Re-evalutation: 10/11/19 17:45 Dr. Long came by to see the patient while he was doing the emergency room. We reevaluated the knee and decided it would be too difficult to try to obtain f luid from the knee, especially since patient is on Eliquis. He did elect to aspirate the right olecranon bursa. (MELODIE MAX) - Vital Signs Vital signs: Temp Pulse Resp BP Pulse Ox 15 134/60 H 98 10/11/19 17:01 10/11/19 17:01 10/11/19 17:01 - Laboratory Laboratory results interpreted by me: 10/11/19 10/11/19 10/11/19 14:01 14:01 14:01 WBC 14.7 H RBC 4.08 L Hgb 12.6 L RDW 15.2 H Lymph % (Auto) 5.4 L Absolute Neuts (auto) 13.2 H Seg Neutrophils % 89.4 H ESR 104 H Sodium 146.1 H Potassium 5.3 H Chloride 108 H BUN 78 H Creatinine 2.18 H Est GFR ( Amer) 36 L Est GFR (MDRD) Non-Af 30 L Glucose 152 H Lactic Acid (Sepsis) 2.4 H Uric Acid 12.8 H AST 121 H Alkaline Phosphatase 158 H Creatine Kinase 850 H C-Reactive Protein 289.1 H Albumin 3.0 L Discharge <MELODIE MAX - Last Filed: 10/11/19 17:43> - Discharge Admitting Provider: Fatmata (Hospitalist) Unit Admitted: Telemetry <ANAYA PEREYRA - Last Filed: 10/11/19 18:27> - Discharge Clinical Impression: Olecranon bursitis of right elbow, Dehydration, Acute worsening of stage 3 chronic kidney disease, Parkinson disease Gout of right knee Qualifiers: Gout etiology: unspecified cause Chronicity: acute Qualified Code(s): M10.9 - Gout, unspecified Leukocytosis Qualifiers: Leukocytosis type: unspecified Qualified Code(s): D72.829 - Elevated white blood cell count, unspecified Condition: Stable Disposition: ADMITTED INPATIENT Referrals: MATHEUS EVANS MD [Primary Care Provider] - Follow up as needed Scribe Attestation: 10/11/19 14:43 I personally performed the services described in the documentation, reviewed and edited the documentation which was dictated to the scribe in my presence, and it accurately records my words and actions. (MELODIE MAX) I personally performed the services described in the documentation, reviewed and edited the documentation which was dictated to the scribe in my presence, and it accurately records my words and actions.
[2019-10-11 15:12] LABS: C-REACTIVE PROTEIN 289.1 mg/L (<10.0)
[2019-10-11] MEDS ORDERED: NORMAL SALINE 1000 ML 1,000 ML IV ONE ×2 (15:17→17:16)
[2019-10-11] MEDS ORDERED: MORPHINE SULFATE 10 MG/ML INJ IV ONE (15:29)
[2019-10-11] MEDS ORDERED: ONDANSETRON HCL INJ/PF 4 MG/2 ML SDV IV ONE (15:29)
[2019-10-11] MEDS ORDERED: LIDOCAINE 1% INJ-PF (10 MG/ML) 30 ML SDV INJ ONE (15:42)
--- NOTE | 2019-10-11 17:28 | PDOC CONSULTATION ---
Consultation Consult Date: 10/11/19 Provider Consulted: MAYRA PIERSON History of Present Illness Admission Date/PCP: MATHEUS EVANS MD Patient complains of: Bilateral elbow and right knee pain History of Present Illness: NELI WIGGINS is a 74 year old male who sustained a stroke and subsequently has been in a nursing facility since that time. According to the emergency room physician notes where the history was obtained from the son patient has sustained a fall on 10/02/2019 on his right side since that time is had increasing pain and swelling of his right elbow and knee. Has history of gout to his left elbow as well. According to the family he was taking antigout medication. Patient is pain in his right knee and elbow complains of more pain in his right knee than his elbow. Poor historian to obtain full HPI. Past Medical History Cardiac Medical History: Reports: Hypertension Denies: Myocardial Infarction Pulmonary Medical History: Denies: Asthma, Bronchitis, Chronic Obstructive Pulmonary Disease (COPD), Pneumonia Neurological Medical History: Reports: Other - Dementia Denies: Seizures GI Medical History: Reports: Gastroesophageal Reflux Disease Denies: Hepatitis, Hiatal Hernia Musculoskeltal Medical History: Reports: Arthritis, Gout Psychiatric Medical History: Reports: Dementia Hematology: Denies: Anemia, Sickle Cell Disease Past Surgical History Past Surgical History: Reports: Orthopedic Surgery - Right hip, Vascular Surgery - Left carotid endarterectomy Denies: Pacemaker Social History Lives with: [facility]-Way Smoking Status: Unknown if Ever Smoked Frequency of Alcohol Use: None Drugs: None Family History Family History: Hypertension Parental Family History Reviewed: No Children Family History Reviewed: No Sibling(s) Family History Reviewed.: No Medication/Allergy Home Medications: Amlodipine Besylate [Norvasc 10 mg Tablet] 10 mg PO QAM 08/17/19 Apixaban [Eliquis 5 mg Tablet] 5 mg PO BID 08/17/19 Atorvastatin Calcium [Lipitor 80 mg Tablet] 80 mg PO QHS 08/17/19 Carbidopa/Levodopa [Sinemet 25-250 mg Tablet] 1 each PO BID 08/17/19 Colchicine [Colcrys 0.6 mg Tablet] 0.6 mg PO QAM 08/17/19 Fesoterodine Fumarate [Toviaz] 4 mg PO QAM 08/17/19 Finasteride [Proscar] 5 mg PO QAM 08/17/19 Metoprolol Succinate [Toprol Xl 25 mg Tab.sr] 25 mg PO QAM 08/17/19 Omeprazole 20 mg PO QAM 08/17/19 Ondansetron HCl [Zofran 4 mg Tablet] 4 mg PO Q8HP PRN 08/17/19 Tamsulosin HCl [Flomax] 0.4 mg PO BID 08/17/19 Tramadol HCl [Ultram] 50 mg PO Q6HP PRN 08/17/19 Acetaminophen [Tylenol 325 mg Tablet] 650 mg PO Q4HP PRN tablet 08/24/19 Allergies/Adverse Reactions: No Known Allergies Allergy (Unverified 05/27/18 12:57) Review of Systems ROS unobtainable: Due to mental status Physical Exam Vital Signs: Intake & Output 10/10/19 10/11/19 10/12/19 06:59 06:59 06:59 Intake Total 1000 Balance 1000 Weight 62.7 kg General appearance: PRESENT: no acute distress, mild distress, other - Thin appearing male Head exam: PRESENT: atraumatic, normocephalic Eye exam: PRESENT: conjunctiva pink, EOMI, PERRLA. ABSENT: scleral icterus Ear exam: PRESENT: normal external ear exam Mouth exam: PRESENT: moist, tongue midline Neck exam: PRESENT: full ROM. ABSENT: carotid bruit, JVD, lymphadenopathy, thyromegaly Respiratory exam: PRESENT: unlabored Cardiovascular exam: PRESENT: RRR. ABSENT: diastolic murmur, rubs, systolic murmur Pulses: PRESENT: normal dorsalis pedis pul, +2 pedal pulses bilateral Vascular exam: PRESENT: normal capillary refill GI/Abdominal exam: PRESENT: normal bowel sounds, soft. ABSENT: distended, guarding, mass, organolmegaly, rebound, tenderness Rectal exam: PRESENT: deferred Musculoskeletal exam: PRESENT: other - Right elbow: Swelling and erythema along the olecranon bursa with tenderness to palpation. No evidence of skin breakdown. Tophaceous gout crystals noted through the skin. No pain with elbow range of motion. Left elbow: Mild swelling along the olecranon bursa no significant erythema. No tenderness palpation. No pain with range of motion. Right knee: Mild tenderness on the medial/lateral joint line. Mild effusion. Pain with terminal flexion/extension. Patient rests knee in a flexed position. No erythema. Mild increased warmth. Neurological exam: PRESENT: alert, awake, oriented to person, oriented to situation. ABSENT: motor sensory deficit Psychiatric exam: PRESENT: flat affect, normal mood. ABSENT: homicidal ideation, suicidal ideation Skin exam: PRESENT: dry, intact, warm. ABSENT: cyanosis, rash Results Laboratory Results: 10/11/19 14:01 10/11/19 14:01 10/11/19 10/11/19 14:01 14:01 WBC 14.7 H RBC 4.08 L Hgb 12.6 L Hct 38.4 MCV 94 MCH 30.8 MCHC 32.7 RDW 15.2 H Plt Count 277 Seg Neutrophils % 89.4 H Sodium 146.1 H Potassium 5.3 H Chloride 108 H Carbon Dioxide 25 Anion Gap 13 BUN 78 H Creatinine 2.18 H Est GFR ( Amer) 36 L Glucose 152 H Uric Acid 12.8 H Calcium 9.4 Total Bilirubin 0.9 AST 121 H Alkaline Phosphatase 158 H C-Reactive Protein 289.1 H Total Protein 6.6 Albumin 3.0 L 10/11/19 10/11/19 14:01 14:01 Creatine Kinase 850 H Troponin I 0.028 Impressions: Elbow X-Ray 10/11/19 00:00 IMPRESSION: POSTERIOR SOFT TISSUE SWELLING. NO ACUTE BONY FINDINGS. Hip/Pelvis X-Ray 10/11/19 00:00 IMPRESSION: INTACT RIGHT HIP PROSTHESIS. NO RADIOGRAPHIC EVIDENCE OF ACUTE INJURY. Knee X-Ray 10/11/19 00:00 IMPRESSION: DEGENERATIVE JOINT DISEASE. NO RADIOGRAPHIC EVIDENCE OF ACUTE INJURY. Head CT 10/11/19 13:44 IMPRESSION: CHRONIC CHANGES OF ATROPHY AND MICROVASCULAR ISCHEMIA. OLD LACUNAR INFARCTS. NO ACUTE PROCESS. EVIDENCE OF ACUTE STROKE: NO. Status: Image reviewed by me - I have reviewed patient's radiographs of his right elbow, knee and hip. There is evidence of prosthetic joint of the right hip no evidence of osteo-lysis or acute abnormality. Mild swelling along the right knee no significant effusion degenerative changes noted. Notable swelling along the olecranon bursa with olecranon spur. Assessment & Plan - Diagnosis (1) Gout of right knee Qualifiers: Gout etiology: unspecified cause Chronicity: acute Qualified Code(s): M10.9 - Gout, unspecified (2) Olecranon bursitis of right elbow Is this a current diagnosis for this admission?: Yes Plan: Patient has evidence of gout in his right elbow and right knee. Given his increased white count and lactic acid along with significant elevated CRP and sed rate there is concern of possible olecranon bursitis and aseptic nature. I do not feel there is evidence of septic redness of the knee given the very limited amount of effusion. Today we discussed treatment options with the patient and proceeded with olecranon bursal aspiration. Fluid was sent for culture sensitivity, AFB/fungal, aerobic and anaerobic culture. Depending on findings of the aspiration and patient's response will consider possible operati ve intervention pending these results. The meantime patient should be started on IV antibiotics as per hospitalist recommendations.
[2019-10-11] MEDS ORDERED: ONDANSETRON HCL INJ/PF 4 MG/2 ML SDV IV PRN (17:57)
[2019-10-11] MEDS ORDERED: ACETAMINOPHEN 325 MG TABLET PO PRN (17:57)
[2019-10-11] MEDS ORDERED: TRAMADOL HCL 50 MG TABLET PO PRN (18:03)
[2019-10-11] MEDS ORDERED: VANCOMYCIN HCL 0 MG in DEXTROSE 5%-WATER 250 ML IV NR (18:15)
--- NOTE | 2019-10-11 19:30 | PDOC H&P ---
History of Present Illness Admission Date/PCP: 10/11/19 18:45 MATHEUS EVANS MD History of Present Illness: NELI WIGGINS is a 74 year old male who first went to [place] back in early August of this year after sustaining a hip fracture and having an operative repair and he went there for rehab. He did very poorly and ultimately wound up becoming a long-term care resident there. On 02 October he fell out of his bed while reaching for something allegedly and landed on his right hip and his right elbow. Patient has a history of Parkinson's disease, stroke, and dementia, and no one who knows what was going on was with him whenever I came to see him. I believe he came to the emergency department after his son came to see him at [place] today and saw that he had a lot of swelling in his right elbow and bruising on his right hip. He had films done of his right hip and pelvis, his right knee which he was complaining hurt, his right elbow, and a head CT. All of these were negative for an acute process. He had a lot of turbid bloody fluid drained from the olecranon bursa of the right elbow by orthopedics. The fluid has been sent for various test. Patient is afebrile and his vital signs are stable. His films reveal no evidence of fracture or dislocation. He did have some metabolic derangements, including a slightly elevated white blood cell count, and elevated ESR and CRP, elevated BUN, creatinine a little elevated above normal for him which is 1.9, slightly elevated sodium, and a slightly elevated uric acid. He also has a history of gout, and takes colchicine, but we cannot identify that he is on Uloric or allopurinol. Orthopedics recommended that he put on antibiotics until cultures return. Dr. Long did comment that he did not think this was a septic process. He is also being admitted for IV fluids and correction of some of his metabolic derangements. Of note, his son was doing some reading on the Internet about some of these orthopedic prost hetics and is concerned that the patient may have cobalt poisoning. Past Medical History Cardiac Medical History: Reports: Hypertension Denies: Myocardial Infarction Pulmonary Medical History: Denies: Asthma, Bronchitis, Chronic Obstructive Pulmonary Disease (COPD), Pneumonia Neurological Medical History: Reports: Other - Dementia Denies: Seizures GI Medical History: Reports: Gastroesophageal Reflux Disease Denies: Hepatitis, Hiatal Hernia Musculoskeltal Medical History: Reports: Arthritis, Gout Psychiatric Medical History: Reports: Dementia Hematology: Denies: Anemia, Sickle Cell Disease Past Surgical History Past Surgical History: Reports: Orthopedic Surgery - Right hip, Vascular Surgery - Left carotid endarterectomy Denies: Pacemaker Social History Lives with: Snf Smoking Status: Unknown if Ever Smoked Frequency of Alcohol Use: None Drugs: None Family History Family History: Hypertension Parental Family History Reviewed: No - Unable to obtain Children Family History Reviewed: No - Unable to obtain Sibling(s) Family History Reviewed.: No - Unable to obtain Medication/Allergy Home Medications: Amlodipine Besylate [Norvasc 10 mg Tablet] 10 mg PO QAM 08/17/19 Apixaban [Eliquis 5 mg Tablet] 5 mg PO BID 08/17/19 Atorvastatin Calcium [Lipitor 80 mg Tablet] 80 mg PO QHS 08/17/19 Carbidopa/Levodopa [Sinemet 25-250 mg Tablet] 1 each PO BID 08/17/19 Colchicine [Colcrys 0.6 mg Tablet] 0.6 mg PO QAM 08/17/19 Fesoterodine Fumarate [Toviaz] 4 mg PO QAM 08/17/19 Finasteride [Proscar] 5 mg PO QAM 08/17/19 Metoprolol Succinate [Toprol Xl 25 mg Tab.sr] 25 mg PO QAM 08/17/19 Omeprazole 20 mg PO QAM 08/17/19 Ondansetron HCl [Zofran 4 mg Tablet] 4 mg PO Q8HP PRN 08/17/19 Tamsulosin HCl [Flomax] 0.4 mg PO BID 08/17/19 Tramadol HCl [Ultram] 50 mg PO Q6HP PRN 08/17/19 Acetaminophen [Tylenol 325 mg Tablet] 650 mg PO Q4HP PRN 10/11/19 Mirtazapine 7.5 mg PO QHS 10/11/19 Allergies/Adverse Reactions: No Known Allergies Allergy (Unverified 05/27/18 12:57) Review of Systems ROS unobtainable: Due to mental status Physical Exam Vital Signs: Temp Pulse Resp BP Pulse Ox 15 134/60 H 98 10/11/19 17:01 10/11/19 17:01 10/11/19 17:01 Intake & Output 1110/11/19 10/12/19 06:59 06:59 06:59 Intake Total 1999 Balance 2000 Weight 62.7 kg General appearance: PRESENT: cooperative, disheveled, mild distress, thin Head exam: PRESENT: atraumatic, normocephalic Eye exam: PRESENT: EOMI, PERRLA. ABSENT: conjunctival injection, nystagmus, scleral icterus Ear exam: PRESENT: normal external ear exam Mouth exam: PRESENT: dry mucosa, neck supple Teeth exam: PRESENT: poor dentation Neck exam: PRESENT: full ROM. ABSENT: carotid bruit, JVD, lymphadenopathy, meningismus, tenderness, thyromegaly Respiratory exam: PRESENT: clear to auscultation haider, symmetrical, unlabored. ABSENT: accessory muscle use, chest wall tenderness, crackles, prolonged expiratory phas, rhonchi, tachypnea, wheezes Cardiovascular exam: PRESENT: irregular rhythm. ABSENT: bradycardia, tachycardia Pulses: PRESENT: normal carotid pulses Vascular exam: PRESENT: normal capillary refill GI/Abdominal exam: PRESENT: normal bowel sounds, soft. ABSENT: distended, guarding, rebound, tenderness Extremities exam: PRESENT: joint swelling - He has some soft swelling over the olecranon bursa that does not involve the joint, it is a little tender to the touch but there is no surrounding erythema. ABSENT: clubbing, pedal edema Musculoskeletal exam: PRESENT: other - He has a scar over the right femoral head that is well approximated from his surgery about 2 months ago. He has a bruise posterior to the right femoral head Neurological exam: PRESENT: awake, oriented to person. ABSENT: oriented to place, oriented to time, oriented to situation Psychiatric exam: PRESENT: flat affect, other - He was laying in the bed with his eyes closed in a bit of a grimace on his face with his mouth open turned a little to the left with his legs flexed at the hip and the knee and rolled over to the left side Skin exam: PRESENT: dry, warm, other - He had rather profound tenting of the skin Results Laboratory Results: 10/11/19 14:01 10/11/19 14:01 10/11/19 10/11/19 14:01 14:01 WBC 14.7 H RBC 4.08 L Hgb 12.6 L Hct 38.4 MCV 94 MCH 30.8 MCHC 32.7 RDW 15.2 H Plt Count 277 Seg Neutrophils % 89.4 H Sodium 146.1 H Potassium 5.3 H Chloride 108 H Carbon Dioxide 25 Anion Gap 13 BUN 78 H Creatinine 2.18 H Est GFR ( Amer) 36 L Glucose 152 H Uric Acid 12.8 H Calcium 9.4 Total Bilirubin 0.9 AST 121 H Alkaline Phosphatase 158 H C-Reactive Protein 289.1 H Total Protein 6.6 Albumin 3.0 L 10/11/19 10/11/19 14:01 14:01 Creatine Kinase 850 H Troponin I 0.028 Impressions: Elbow X-Ray 10/11/19 00:00 IMPRESSION: POSTERIOR SOFT TISSUE SWELLING. NO ACUTE BONY FINDINGS. Hip/Pelvis X-Ray 10/11/19 00:00 IMPRESSION: INTACT RIGHT HIP PROSTHESIS. NO RADIOGRAPHIC EVIDENCE OF ACUTE INJURY. Knee X-Ray 10/11/19 00:00 IMPRESSION: DEGENERATIVE JOINT DISEASE. NO RADIOGRAPHIC EVIDENCE OF ACUTE INJURY. Head CT 10/11/19 13:44 IMPRESSION: CHRONIC CHANGES OF ATROPHY AND MICROVASCULAR ISCHEMIA. OLD LACUNAR INFARCTS. NO ACUTE PROCESS. EVIDENCE OF ACUTE STROKE: NO. Assessment and Plan - Diagnosis (1) Acute worsening of stage 3 chronic kidney disease Is this a current diagnosis for this admission?: Yes Plan: Creatinine is a little bit a little bit above baseline, will give some IV fluids and monitor his urine output (2) Dehydration Is this a current diagnosis for this admission?: Yes Plan: IV fluids and monitor urine output (3) Gout of right knee Qualifiers: Gout etiology: unspecified cause Chronicity: acute Qualified Code(s): M10.9 - Gout, unspecified Is this a current diagnosis for this admission?: Yes Plan: This is possible, but the right knee is really not very inflamed or swollen my examination. He is already on colchicine, which will continue (4) Parkinson disease Is this a current diagnosis for this admission?: Yes Plan: We will continue Sinemet (5) AAA (abdominal aortic aneurysm) without rupture Is this a current diagnosis for this admission?: Yes Plan: Keep him on his home medications and watch his blood pressure (6) BPH (benign prostatic hyperplasia) Qualifiers: Lower urinary tract symptom presence: unspecified whether lower urinary tract symptoms present Qualified Code(s): N40.0 - Benign prostatic hyperplasia without lower urinary tract symptoms Is this a current diagnosis for this admission?: Yes Plan: We will continue his Proscar and his Flomax (7) Olecranon bursitis of right elbow Is this a current diagnosis for this admission?: Yes Plan: This is been aspirated and the fluid is been sent for cultures, we will keep him on some IV vancomycin until we get some culture results to see if he needs antibiotics to be continued. - Time Time Spent with patient: 35 or more minutes - Inpatient Certification Based on my medical assessment, after consideration of the patient's comorbidities, presenting symptoms, or acuity I expect that the services needed warrant INPATIENT care.: Yes I certify that my determination is in accordance with my understanding of Medicare's requirements for reasonable and necessary INPATIENT services [42 CFR 412.3e].: Yes Medical Necessity: Significant Comorbidiites Make Outpatient Treatment Too Risky, Need Close Monitoring Due to Risk of Patient Decompensation, Need For IV Fluids, Need For Continuous Telemetry Monitoring, Need for IV Antibiotics
[2019-10-11] MEDS ORDERED: VANCOMYCIN HCL 1,500 MG in DEXTROSE 5%-WATER 250 ML IV ONE (20:00)
[2019-10-11 21:55] LABS: APPEARANCE,URINE CLEAR; BILIRUBIN,URINE NEGATIVE (NEGATIVE); COLOR,URINE YELLOW; GLUCOSE, URINE NEGATIVE (NEGATIVE); KETONES,URINE TRACE mg/dL (NEGATIVE); LEUKOCYTE ESTERASE,URINE NEGATIVE (NEGATIVE); NITRITE,URINE NEGATIVE (NEGATIVE); PROTEIN,URINE NEGATIVE (NEGATIVE); URINE SPECIFIC GRAVITY 1.017; UROBILINOGEN,URINE NEGATIVE mg/dL (<2.0)
[2019-10-11] MEDS: ATORVASTATIN CALCIUM 80 MG TABLET PO SCH (22:27)
[2019-10-11] MEDS: NORMAL SALINE 1000 ML 1,000 ML IV PRN (22:27)
--- NOTE | 2019-10-11 23:46 | EKG REPORT ---
SEVERITY:- ABNORMAL ECG - SINUS TACHYCARDIA FREQUENT VENTRICULAR PREMATURE COMPLEXES LEFT ANTERIOR FASCICULAR BLOCK NONSPECIFIC T ABNORMALITIES, LATERAL LEADS : Confirmed by: Alek Christine 11-Oct-2019 23:46:07
[2019-10-12 06:39] LABS: HEMATOCRIT 34.8 % (37.9-51.0); HEMOGLOBIN 11.5 g/dL (13.5-17.0); MEAN CORPUSCULAR HEMOGLOBIN 31.4 pg (27.0-33.4); MEAN CORPUSCULAR HGB CONC 33.2 g/dL (32.0-36.0); MEAN CORPUSCULAR VOLUME 95 fl (80-97); PLATELET COUNT 206 10^3/uL (150-450); RED BLOOD COUNT 3.67 10^6/uL (4.35-5.55); RED CELL DISTRIBUTION WIDTH 15.2 % (11.5-14.0); WHITE BLOOD COUNT 10.6 10^3/uL (4.0-10.5)
[2019-10-12 07:02] LABS: ALBUMIN 2.7 g/dL (3.5-5.0); ALKALINE PHOSPHATASE 129 U/L (38-126); ANION GAP 8 (5-19); ASPARTATE AMINO TRANSFERASE 87 U/L (17-59); BILIRUBIN,DIRECT 0.3 mg/dL (0.0-0.4); BILIRUBIN,TOTAL 0.8 mg/dL (0.2-1.3); BLOOD UREA NITROGEN 71 mg/dL (7-20); CALCIUM 8.6 mg/dL (8.4-10.2); CARBON DIOXIDE 25 mmol/L (22-30); CHLORIDE 113 mmol/L (98-107); GLUCOSE 91 mg/dL (75-110); POTASSIUM 4.7 mmol/L (3.6-5.0); TOTAL PROTEIN 6.3 g/dL (6.3-8.2)
[2019-10-12] MEDS ORDERED: (PENDING PHARMACY ID) (Fesoterodine Fumarate [Toviaz] 4 MG) PO SCH (08:00)
[2019-10-12] MEDS: TAMSULOSIN HCL 0.4 MG CAP.SR.24H PO SCH ×2 (09:21→17:42)
[2019-10-12] MEDS: METOPROLOL SUCCINATE 25 MG TAB.SR.24H PO SCH (09:21)
[2019-10-12] MEDS: AMLODIPINE BESYLATE 10 MG TABLET PO SCH (09:22)
[2019-10-12] MEDS: PANTOPRAZOLE SODIUM 20 MG TABLET.DR PO SCH (09:22)
[2019-10-12] MEDS: CARBIDOPA/LEVODOPA 25-250 MG TABLET PO SCH ×2 (09:22→17:43)
[2019-10-12] MEDS: FINASTERIDE 5 MG TABLET PO SCH (09:22)
[2019-10-12] MEDS: APIXABAN 5 MG TABLET PO SCH ×2 (09:22→17:43)
[2019-10-12] MEDS: COLCHICINE 0.6 MG TABLET PO SCH (09:36)
[2019-10-12] MEDS: NORMAL SALINE 1000 ML 1,000 ML IV PRN ×2 (09:36→17:42)
--- NOTE | 2019-10-12 12:30 | PDOC PROGRESS REPORT ---
Subjective Progress Note for:: 10/12/19 Reason For Visit: 10/12/19 GOUT OF RIGHT KNEE,OLECRANON BURSITIS OF RIGHT ELB who is a resident of [facility] Patient is currently on antibiotics until cultures return Physical Exam Vital Signs: Temp Pulse Resp BP Pulse Ox 97.9 F 86 17 131/54 H 98 10/12/19 11:51 10/12/19 11:51 10/12/19 11:51 10/12/19 11:51 10/12/19 11:51 Intake & Output 10/11/19 10/12/19 10/13/19 06:59 06:59 06:59 Intake Total 2300 1000 Output Total 450 Balance 1850 1000 Weight 61.9 kg General appearance: PRESENT: no acute distress, other - Leaping in bed in bed patient states patient states "I hurt all over" Respiratory exam: PRESENT: clear to auscultation haider. ABSENT: rales, rhonchi, wheezes Cardiovascular exam: PRESENT: RRR. ABSENT: diastolic murmur, rubs, systolic murmur Neurological exam: PRESENT: altered, other - Patient seems lethargic although this may be his baseline Psychiatric exam: PRESENT: flat affect Results Laboratory Results: 10/12/19 06:16 10/12/19 06:16 10/11/19 10/11/19 10/11/19 14:01 14:01 21:30 WBC 14.7 H RBC 4.08 L Hgb 12.6 L Hct 38.4 MCV 94 MCH 30.8 MCHC 32.7 RDW 15.2 H Plt Count 277 Seg Neutrophils % 89.4 H Sodium 146.1 H Potassium 5.3 H Chloride 108 H Carbon Dioxide 25 Anion Gap 13 BUN 78 H Creatinine 2.18 H Est GFR ( Amer) 36 L Glucose 152 H Uric Acid 12.8 H Calcium 9.4 Total Bilirubin 0.9 AST 121 H Alkaline Phosphatase 158 H C-Reactive Protein 289.1 H Total Protein 6.6 Albumin 3.0 L Urine Color YELLOW Urine Appearance CLEAR Urine pH 5.0 Ur Specific [place] 1.017 Urine Protein NEGATIVE Urine Glucose (UA) NEGATIVE Urine Ketones TRACE H Urine Blood NEGATIVE Urine Nitrite NEGATIVE Ur Leukocyte Esterase NEGATIVE Urine WBC (Auto) 0 Urine RBC (Auto) 0 10/12/19 10/12/19 06:16 06:16 WBC 10.6 H RBC 3.67 L Hgb 11.5 L Hct 34.8 L MCV 95 MCH 31.4 MCHC 33.2 RDW 15.2 H Plt Count 206 Seg Neutrophils % Sodium 145.8 H Potassium 4.7 Chloride 113 H Carbon Dioxide 25 Anion Gap 8 BUN 71 H Creatinine 1.78 H Est GFR ( Amer) 45 L Glucose 91 Uric Acid Calcium 8.6 Total Bilirubin 0.8 AST 87 H Alkaline Phosphatase 129 H C-Reactive Protein Total Protein 6.3 Albumin 2.7 L Urine Color Urine Appearance Urine pH Ur Specific [place] Urine Protein Urine Glucose (UA) Urine Ketones Urine Blood Urine Nitrite Ur Leukocyte Esterase Urine WBC (Auto) Urine RBC (Auto) 10/11/19 10/11/19 14:01 14:01 Creatine Kinase 850 H Troponin I 0.028 Impressions: Elbow X-Ray 10/11/19 00:00 IMPRESSION: POSTERIOR SOFT TISSUE SWELLING. NO ACUTE BONY FINDINGS. Hip/Pelvis X-Ray 10/11/19 00:00 IMPRESSION: INTACT RIGHT HIP PROSTHESIS. NO RADIOGRAPHIC EVIDENCE OF ACUTE INJURY. Knee X-Ray 10/11/19 00:00 IMPRESSION: DEGENERATIVE JOINT DISEASE. NO RADIOGRAPHIC EVIDENCE OF ACUTE INJURY. Head CT 10/11/19 13:44 IMPRESSION: CHRONIC CHANGES OF ATROPHY AND MICROVASCULAR ISCHEMIA. OLD LACUNAR INFARCTS. NO ACUTE PROCESS. EVIDENCE OF ACUTE STROKE: NO. Assessment and Plan - Diagnosis (1) Acute worsening of stage 3 chronic kidney disease Is this a current diagnosis for this admission?: Yes (2) Dehydration Is this a current diagnosis for this admission?: Yes (3) Gout of right knee Qualifiers: Gout etiology: unspecified cause Chronicity: acute Qualified Code(s): M10.9 - Gout, unspecified Is this a current diagnosis for this admission?: Yes (4) Leukocytosis Qualifiers: Leukocytosis type: unspecified Qualified Code(s): D72.829 - Elevated white blood cell count, unspecified Is this a current diagnosis for this admission?: Yes (5) Olecranon bursitis of right elbow Is this a current diagnosis for this admission?: Yes (6) Parkinson disease Is this a current diagnosis for this admission?: Yes - Plan Summary Summary: 10/12/2019 Patient's white count is pretty much stable at 10,600 had been as high as 14,700 on admission and hemoglobin is stable. BUN is 71 admission it was 78 ,creatinine 1.78 on admission it was 2.18, blood sugars are running about 90. Lactic acid on admission was 2.4 yesterday was 1.9 So far all micro studies are pending Patient is currently on normal saline at 100 mL's per hour, concerning antibiotics he is on IV vancomycin daily Continue hospitalization until cultures return with IV antibiotics - Time Time Spent with patient: 25-34 minutes
--- NOTE | 2019-10-12 14:20 | PDOC PROGRESS REPORT ---
Subjective Progress Note for:: 10/12/19 Subjective:: Patient lying in bed calmly. Mentation much improved today. States the pain in his elbow has improved along with his knee but continues to have discomfort and has been unable to attend physical therapy due to the pain. 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 Also states he regularly sits with the hip and internal rotated position. Reason For Visit: GOUT OF RIGHT KNEE,OLECRANON BURSITIS OF RIGHT ELB Physical Exam Vital Signs: Temp Pulse Resp BP Pulse Ox 97.9 F 86 17 131/54 H 98 10/12/19 11:51 10/12/19 11:51 10/12/19 11:51 10/12/19 11:51 10/12/19 11:51 Intake & Output 10/11/19 10/12/19 10/13/19 06:59 06:59 06:59 Intake Total 2300 1100 Output Total 450 Balance 1850 1100 Weight 61.9 kg General appearance: PRESENT: no acute distress, thin Head exam: PRESENT: atraumatic, normocephalic Eye exam: PRESENT: conjunctiva pink. ABSENT: scleral icterus Ear exam: PRESENT: normal external ear exam Mouth exam: PRESENT: moist, tongue midline Teeth exam: PRESENT: poor dentation Neck exam: PRESENT: full ROM. ABSENT: carotid bruit, JVD, lymphadenopathy, thyromegaly Respiratory exam: PRESENT: unlabored Cardiovascular exam: PRESENT: RRR. ABSENT: diastolic murmur, rubs, systolic murmur Pulses: PRESENT: normal dorsalis pedis pul, +2 pedal pulses bilateral Vascular exam: PRESENT: normal capillary refill GI/Abdominal exam: PRESENT: normal bowel sounds, soft. ABSENT: distended, guarding, mass, organolmegaly, rebound, tenderness Rectal exam: PRESENT: deferred Musculoskeletal exam: PRESENT: other - Right elbow: Olecranon bursitis. Previo us erythema notably improved however continues to have notable swelling. Pain with terminal flexion. No pain with mid range of motion. No sensory deficits. No streaking erythema. Left elbow: Olecranon bursitis mild erythema along the olecranon tip. Tenderness to palpation. Visual tophaceous gout noted. No pain with range of motion. Right hip: Surgical incision healed no erythema or draina ge. Ecchymosis along the greater trochanter with mild erythema no palpable fluctuance. Right and Left knee: Mild effusion tenderness to palpation diffusely throughout the knee limited range of motion secondary to pain. Mild increased warmth but equal between the right and left knee. No erythema. Neurological exam: PRESENT: alert, awake, oriented to person, oriented to place, oriented to time, oriented to situation, CN II-XII grossly intact. ABSENT: motor sensory deficit Psychiatric exam: PRESENT: appropriate affect, normal mood. ABSENT: homicidal ideation, suicidal ideation Skin exam: PRESENT: dry, intact, warm. ABSENT: cyanosis, rash Results Laboratory Results: 10/12/19 06:16 10/12/19 06:16 10/11/19 10/11/19 10/11/19 14:01 14:01 21:30 WBC 14.7 H RBC 4.08 L Hgb 12.6 L Hct 38.4 MCV 94 MCH 30.8 MCHC 32.7 RDW 15.2 H Plt Count 277 Seg Neutrophils % 89.4 H Sodium 146.1 H Potassium 5.3 H Chloride 108 H Carbon Dioxide 25 Anion Gap 13 BUN 78 H Creatinine 2.18 H Est GFR ( Amer) 36 L Glucose 152 H Uric Acid 12.8 H Calcium 9.4 Total Bilirubin 0.9 AST 121 H Alkaline Phosphatase 158 H C-Reactive Protein 289.1 H Total Protein 6.6 Albumin 3.0 L Urine Color YELLOW Urine Appearance CLEAR Urine pH 5.0 Ur Specific [place] 1.017 Urine Protein NEGATIVE Urine Glucose (UA) NEGATIVE Urine Ketones TRACE H Urine Blood NEGATIVE Urine Nitrite NEGATIVE Ur Leukocyte Esterase NEGATIVE Urine WBC (Auto) 0 Urine RBC (Auto) 0 10/12/19 10/12/19 06:16 06:16 WBC 10.6 H RBC 3.67 L Hgb 11.5 L Hct 34.8 L MCV 95 MCH 31.4 MCHC 33.2 RDW 15.2 H Plt Count 206 Seg Neutrophils % Sodium 145.8 H Potassium 4.7 Chloride 113 H Carbon Dioxide 25 Anion Gap 8 BUN 71 H Creatinine 1.78 H Est GFR ( Amer) 45 L Glucose 91 Uric Acid Calcium 8.6 Total Bilirubin 0.8 AST 87 H Alkaline Phosphatase 129 H C-Reactive Protein Total Protein 6.3 Albumin 2.7 L Urine Color Urine Appearance Urine pH Ur Specific [place] Urine Protein Urine Glucose (UA) Urine Ketones Urine Blood Urine Nitrite Ur Leukocyte Esterase Urine WBC (Auto) Urine RBC (Auto) 10/11/19 10/11/19 14:01 14:01 Creatine Kinase 850 H Troponin I 0.028 Impressions: Elbow X-Ray 10/11/19 00:00 IMPRESSION: POSTERIOR SOFT TISSUE SWELLING. NO ACUTE BONY FINDINGS. Hip/Pelvis X-Ray 10/11/19 00:00 IMPRESSION: INTACT RIGHT HIP PROSTHESIS. NO RADIOGRAPHIC EVIDENCE OF ACUTE I NJURY. Knee X-Ray 10/11/19 00:00 IMPRESSION: DEGENERATIVE JOINT DISEASE. NO RADIOGRAPHIC EVIDENCE OF ACUTE INJURY. Head CT 10/11/19 13:44 IMPRESSION: CHRONIC CHANGES OF ATROPHY AND MICROVASCULAR ISCHEMIA. OLD LACUNAR INFARCTS. NO ACUTE PROCESS. EVIDENCE OF ACUTE STROKE: NO. Assessment & Plan - Diagnosis (1) Gout of right knee Qualifiers: Gout etiology: unspecified cause Chronicity: acute Qualified Code(s): M10.9 - Gout, unspecified Is this a current diagnosis for this admission?: Yes (2) Olecranon bursitis of right elbow Is this a current diagnosis for this admission?: Yes Plan: Patient has evidence of gout in his right elbow and right knee. Cultures from the elbow continue to demonstrate no evidence of septic process however I feel cellulitic component is likely contributing to patient's white count and thus he has seen improvement with antibiotics. We will continue to monitor culture results. Although he does have mild effusion in bilateral knees after further questioning today given patient's much improved mentation he states his knee has been somewhat flexed position since his original injury. Denies fever chills or sweats. Current orthopedic plan is to continue to monitor culture results and continue nonoperative intervention with IV antibiotics. Procedure note: Right elbow olecranon bursitis Procedure performed: Aspiration right elbow olecranon bursa Procedure in detail: area was prepped with alcohol and 18-gauge needle was inserted via a lateral approach. 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 Patient tolerated procedure well. - Time Time Spent with patient: 15-24 minutes
[2019-10-12] MEDS ORDERED: VANCOMYCIN HCL 750 MG in DEXTROSE 5%-WATER 250 ML IV SCH (18:00)
[2019-10-12] MEDS: ATORVASTATIN CALCIUM 80 MG TABLET PO SCH (22:28)
[2019-10-13 06:42] LABS: HEMATOCRIT 34.4 % (37.9-51.0); HEMOGLOBIN 11.3 g/dL (13.5-17.0); MEAN CORPUSCULAR HEMOGLOBIN 30.7 pg (27.0-33.4); MEAN CORPUSCULAR HGB CONC 32.7 g/dL (32.0-36.0); MEAN CORPUSCULAR VOLUME 94 fl (80-97); PLATELET COUNT 237 10^3/uL (150-450); RED BLOOD COUNT 3.66 10^6/uL (4.35-5.55); WHITE BLOOD COUNT 9.4 10^3/uL (4.0-10.5)
[2019-10-13 06:49] LABS: ALBUMIN 3.9 g/dL (3.5-5.0); ALKALINE PHOSPHATASE 51 U/L (38-126); ANION GAP 6 (5-19); ASPARTATE AMINO TRANSFERASE 38 U/L (17-59); BILIRUBIN,DIRECT 0.1 mg/dL (0.0-0.4); BILIRUBIN,TOTAL 0.5 mg/dL (0.2-1.3); BLOOD UREA NITROGEN 18 mg/dL (7-20); CALCIUM 8.6 mg/dL (8.4-10.2); CARBON DIOXIDE 27 mmol/L (22-30); CHLORIDE 107 mmol/L (98-107); GLUCOSE 89 mg/dL (75-110); POTASSIUM 3.8 mmol/L (3.6-5.0); TOTAL PROTEIN 6.6 g/dL (6.3-8.2)
--- NOTE | 2019-10-13 07:01 | PDOC PROGRESS REPORT ---
Subjective Progress Note for:: 10/13/19 Reason For Visit: GOUT OF RIGHT KNEE,OLECRANON BURSITIS OF RIGHT ELB 74-year-old white male with an inflammatory as opposed to septic right olecranon bursitis. Patient reports improvement overnight. Physical Exam Vital Signs: Temp Pulse Resp BP Pulse Ox 37.2 C 84 12 141/62 H 99 10/13/19 00:00 10/13/19 02:00 10/13/19 00:00 10/13/19 00:00 10/13/19 00:00 Intake & Output 10/11/19 10/12/19 10/13/19 06:59 06:59 06:59 Intake Total 2300 3710 Output Total 450 900 Balance 1850 2810 Weight 61.9 kg 68 kg General appearance: PRESENT: no acute distress Head exam: PRESENT: normocephalic Respiratory exam: PRESENT: unlabored Cardiovascular exam: PRESENT: RRR Vascular exam: PRESENT: normal capillary refill GI/Abdominal exam: PRESENT: soft Rectal exam: PRESENT: deferred Extremities exam: PRESENT: other - Right elbow dressing clean dry and intact. Range of motion limited by discomfort. Distal neurovascular examination is intact. Results Laboratory Results: 10/13/19 06:19 10/13/19 06:19 10/12/19 10/13/19 10/13/19 06:16 06:19 06:19 WBC 9.4 RBC 3.66 L Hgb 11.3 L Hct 34.4 L MCV 94 MCH 30.7 MCHC 32.7 RDW 15.0 H Plt Count 237 Sodium 145.8 H 139.7 Potassium 4.7 3.8 Chloride 113 H 107 Carbon Dioxide 25 27 Anion Gap 8 6 BUN 71 H 18 Creatinine 1.78 H 0.75 Est GFR ( Amer) 45 L > 60 Glucose 91 89 Calcium 8.6 8.6 Total Bilirubin 0.8 0.5 AST 87 H 38 Alkaline Phosphatase 129 H 51 Total Protein 6.3 6.6 Albumin 2.7 L 3.9 10/11/19 10/11/19 14:01 14:01 Creatine Kinase 850 H Troponin I 0.028 Impressions: Elbow X-Ray 10/11/19 00:00 IMPRESSION: POSTERIOR SOFT TISSUE SWELLING. NO ACUTE BONY FINDINGS. Hip/Pelvis X-Ray 10/11/19 00:00 IMPRESSION: INTACT RIGHT HIP PROSTHESIS. NO RADIOGRAPHIC EVIDENCE OF ACUTE INJURY. Knee X-Ray 10/11/19 00:00 IMPRESSION: DEGENERATIVE JOINT DISEASE. NO RADIOGRAPHIC EVIDENCE OF ACUTE INJURY. Head CT 10/11/19 13:44 IMPRESSION: CHRONIC CHANGES OF ATROPHY AND MICROVASCULAR ISCHEMIA. OLD LACUNAR INFARCTS. NO ACUTE PROCESS. EVIDENCE OF ACUTE STROKE: NO. Status: Imported from PACS Assessment & Plan - Diagnosis (1) Olecranon bursitis of right elbow Is this a current diagnosis for this admission?: Yes Plan: Patient reports clinical improvement. Continue current care. - Time Time Spent with patient: Less than 15 minutes
[2019-10-13] MEDS: NORMAL SALINE 1000 ML 1,000 ML IV PRN ×2 (08:02→22:46)
[2019-10-13] MEDS: FINASTERIDE 5 MG TABLET PO SCH (08:48)
[2019-10-13] MEDS: PANTOPRAZOLE SODIUM 20 MG TABLET.DR PO SCH (08:48)
[2019-10-13] MEDS: COLCHICINE 0.6 MG TABLET PO SCH (08:48)
[2019-10-13] MEDS: METOPROLOL SUCCINATE 25 MG TAB.SR.24H PO SCH (08:48)
[2019-10-13] MEDS: AMLODIPINE BESYLATE 10 MG TABLET PO SCH (08:48)
[2019-10-13] MEDS: APIXABAN 5 MG TABLET PO SCH ×2 (09:33→17:46)
[2019-10-13] MEDS: CARBIDOPA/LEVODOPA 25-250 MG TABLET PO SCH ×2 (09:33→17:46)
[2019-10-13] MEDS: TAMSULOSIN HCL 0.4 MG CAP.SR.24H PO SCH ×2 (09:33→17:46)
--- NOTE | 2019-10-13 14:17 | PDOC PROGRESS REPORT ---
Subjective Progress Note for:: 10/13/19 Reason For Visit: GOUT OF RIGHT KNEE,OLECRANON BURSITIS OF RIGHT ELB 10/13/2019 Orthopedics tapped his right elbow today, fluid was sent to the lab States he is having less pain in his elbow and his knees patient is currently on vancomycin IV White count on admission was 14.7 it is come down to 9.4 Discharge planning put a note in the chart yesterday it is unsure whether [facility]. There is some question about the son wanting patient to go to a different facility Suspect patient will be able medically to transfer from the hospital in 48 hours Physical Exam Vital Signs: Temp Pulse Resp BP Pulse Ox 97.4 F 91 17 97/56 L 100 10/13/19 11:14 10/13/19 11:14 10/13/19 11:14 10/13/19 11:14 10/13/19 11:14 Intake & Output 10/12/19 10/13/19 10/14/19 06:59 06:59 06:59 Intake Total 2300 4710 Output Total 450 900 Balance 1850 3810 Weight 61.9 kg 68 kg Results Laboratory Results: 10/13/19 06:19 10/13/19 06:19 10/13/19 10/13/19 06:19 06:19 WBC 9.4 RBC 3.66 L Hgb 11.3 L Hct 34.4 L MCV 94 MCH 30.7 MCHC 32.7 RDW 15.0 H Plt Count 237 Sodium 139.7 Potassium 3.8 Chloride 107 Carbon Dioxide 27 Anion Gap 6 BUN 18 Creatinine 0.75 Est GFR ( Amer) > 60 Glucose 89 Calcium 8.6 Total Bilirubin 0.5 AST 38 Alkaline Phosphatase 51 Total Protein 6.6 Albumin 3.9 10/11/19 10/11/19 14:01 14:01 Creatine Kinase 850 H Troponin I 0.028 Impressions: Elbow X-Ray 10/11/19 00:00 IMPRESSION: POSTERIOR SOFT TISSUE SWELLING. NO ACUTE BONY FINDINGS. Hip/Pelvis X-Ray 10/11/19 00:00 IMPRESSION: INTACT RIGHT HIP PROSTHESIS. NO RADIOGRAPHIC EVIDENCE OF ACUTE INJURY. Knee X-Ray 10/11/19 00:00 IMPRESSION: DEGENERATIVE JOINT DISEASE. NO RADIOGRAPHIC EVIDENCE OF ACUTE INJURY. Head CT 10/11/19 13:44 IMPRESSION: CHRONIC CHANGES OF ATROPHY AND MICROVASCULAR ISCHEMIA. OLD LACUNAR INFARCTS. NO ACUTE PROCESS. EVIDENCE OF ACUTE STROKE: NO. Assessment and Plan - Diagnosis (1) Acute worsening of stage 3 chronic kidney disease Is this a current diagnosis for this admission?: Yes (2) Dehydration Is this a current diagnosis for this admission?: Yes (3) Gout of right knee Qualifiers: Gout etiology: unspecified cause Chronicity: acute Qualified Code(s): M10.9 - Gout, unspecified Is this a current diagnosis for this admission?: Yes (4) Leukocytosis Qualifiers: Leukocytosis type: unspecified Qualified Code(s): D72.829 - Elevated white blood cell count, unspecified Is this a current diagnosis for this admission?: Yes (5) Olecranon bursitis of right elbow Is this a current diagnosis for this admission?: Yes (6) Parkinson disease Is this a current diagnosis for this admission?: Yes - Plan Summary Summary: 10/12/2019 Patient's white count is pretty much stable at 10,600 had been as high as 14,700 on admission and hemoglobin is stable. BUN is 71 admission it was 78 ,creatinine 1.78 on admission it was 2.18, blood sugars are running about 90. Lactic acid on admission was 2.4 yesterday was 1.9 So far all micro studies are pending Patient is currently on normal saline at 100 mL's per hour, concerning antibiotics he is on IV vancomycin daily Continue hospitalization until cultures return with IV antibiotics 10/13/2019 See the note dictated above at the reason for visit Day 3 of IV vancomycin and culture results - Time Time Spent with patient: 25-34 minutes
[2019-10-13] MEDS: VANCOMYCIN HCL 1,000 MG in DEXTROSE 5%-WATER 250 ML IV SCH (17:46)
[2019-10-13] MEDS: ATORVASTATIN CALCIUM 80 MG TABLET PO SCH (22:43)
[2019-10-14] MEDS: VANCOMYCIN HCL 1,000 MG in DEXTROSE 5%-WATER 250 ML IV SCH (05:24)
--- NOTE | 2019-10-14 06:23 | PDOC PROGRESS REPORT ---
Subjective Progress Note for:: 10/14/19 Reason For Visit: GOUT OF RIGHT KNEE,OLECRANON BURSITIS OF RIGHT ELB 74-year-old white male with a right olecranon bursitis which seems to be gradually improving according to the patient. All cultures remain no growth so far Physical Exam Vital Signs: Temp Pulse Resp BP Pulse Ox 36.7 C 86 12 149/58 H 100 10/14/19 04:00 10/14/19 04:00 10/14/19 04:00 10/14/19 04:00 10/14/19 04:00 Intake & Output 10/12/19 10/13/19 10/14/19 06:59 06:59 06:59 Intake Total 2300 4710 2347 Output Total 774 040 2980 Balance 1850 3810 822 Weight 61.9 kg 68 kg 72.2 kg General appearance: PRESENT: no acute distress Respiratory exam: PRESENT: unlabored Cardiovascular exam: PRESENT: RRR Vascular exam: PRESENT: normal capillary refill GI/Abdominal exam: PRESENT: soft Rectal exam: PRESENT: deferred Extremities exam: PRESENT: other - Right upper extremity with considerable swelling distal to the elbow. I think this is related to the constrictive effects of the wrap that was in place. I think this can be discontinued. The underlying olecranon is enlarged and there is some erythema but is not tense and is minimally tender. Passive range of motion of the elbow is pain-free. Distal neurovascular examination is intact. Neurological exam: PRESENT: alert, awake, oriented to person, oriented to place, oriented to time, oriented to situation. ABSENT: motor sensory deficit Psychiatric exam: PRESENT: appropriate affect, normal mood. ABSENT: homicidal ideation, suicidal ideation Skin exam: PRESENT: dry, intact, warm. ABSENT: cyanosis, rash Results Laboratory Results: 10/13/19 06:19 10/13/19 06:19 10/13/19 10/13/19 06:19 06:19 WBC 9.4 RBC 3.66 L Hgb 11.3 L Hct 34.4 L MCV 94 MCH 30.7 MCHC 32.7 RDW 15.0 H Plt Count 237 Sodium 139.7 Potassium 3.8 Chloride 107 Carbon Dioxide 27 Anion Gap 6 BUN 18 Creatinine 0.75 Est GFR ( Amer) > 60 Glucose 89 Calcium 8.6 Total Bilirubin 0.5 AST 38 Alkaline Phosphatase 51 Total Protein 6.6 Albumin 3.9 10/11/19 17:00 Synovial Fluid - Elbow AFB Smear Concentration - Final 10/11/19 17:00 Synovial Fluid - Elbow Acid Fast Bacilli Smear - Final 10/11/19 10/11/19 14:01 14:01 Creatine Kinase 850 H Troponin I 0.028 Impressions: Elbow X-Ray 10/11/19 00:00 IMPRESSION: POSTERIOR SOFT TISSUE SWELLING. NO ACUTE BONY FINDINGS. Hip/Pelvis X-Ray 10/11/19 00:00 IMPRESSION: INTACT RIGHT HIP PROSTHESIS. NO RADIOGRAPHIC EVIDENCE OF ACUTE INJU RY. Knee X-Ray 10/11/19 00:00 IMPRESSION: DEGENERATIVE JOINT DISEASE. NO RADIOGRAPHIC EVIDENCE OF ACUTE INJURY. Head CT 10/11/19 13:44 IMPRESSION: CHRONIC CHANGES OF ATROPHY AND MICROVASCULAR ISCHEMIA. OLD LACUNAR INFARCTS. NO ACUTE PROCESS. EVIDENCE OF ACUTE STROKE: NO. Status: Imported from PACS Assessment & Plan - Diagnosis (1) Olecranon bursitis of right elbow Is this a current diagnosis for this admission?: Yes Plan: At this point I think we can discontinue the use of the compressive dressing to the right elbow. Think the patient can return to an activity as tolerated basis. I personally do not believe that this is a septic arthritis and I think at some point antibiotics can be stopped. detention facility placement when appropriate medically. - Time Time Spent with patient: 15-24 minutes Anticipated discharge: SNF Within: when bed available
[2019-10-14 07:03] LABS: HEMATOCRIT 32.2 % (37.9-51.0); HEMOGLOBIN 10.7 g/dL (13.5-17.0); MEAN CORPUSCULAR HEMOGLOBIN 31.2 pg (27.0-33.4); MEAN CORPUSCULAR HGB CONC 33.2 g/dL (32.0-36.0); MEAN CORPUSCULAR VOLUME 94 fl (80-97); PLATELET COUNT 246 10^3/uL (150-450); RED BLOOD COUNT 3.43 10^6/uL (4.35-5.55); WHITE BLOOD COUNT 10.8 10^3/uL (4.0-10.5)
[2019-10-14 07:21] LABS: ALBUMIN 2.5 g/dL (3.5-5.0); ALKALINE PHOSPHATASE 172 U/L (38-126); ANION GAP 7 (5-19); ASPARTATE AMINO TRANSFERASE 130 U/L (17-59); BILIRUBIN,DIRECT 0.3 mg/dL (0.0-0.4); BILIRUBIN,TOTAL 0.9 mg/dL (0.2-1.3); BLOOD UREA NITROGEN 46 mg/dL (7-20); CALCIUM 8.1 mg/dL (8.4-10.2); CARBON DIOXIDE 20 mmol/L (22-30); CHLORIDE 112 mmol/L (98-107); GLUCOSE 114 mg/dL (75-110); POTASSIUM 4.3 mmol/L (3.6-5.0)
[2019-10-14] MEDS: PANTOPRAZOLE SODIUM 20 MG TABLET.DR PO SCH (08:51)
[2019-10-14] MEDS: COLCHICINE 0.6 MG TABLET PO SCH (08:51)
[2019-10-14] MEDS: METOPROLOL SUCCINATE 25 MG TAB.SR.24H PO SCH (08:51)
[2019-10-14] MEDS: AMLODIPINE BESYLATE 10 MG TABLET PO SCH (08:51)
[2019-10-14] MEDS: FINASTERIDE 5 MG TABLET PO SCH (08:51)
[2019-10-14] MEDS: CARBIDOPA/LEVODOPA 25-250 MG TABLET PO SCH ×2 (09:00→18:59)
[2019-10-14] MEDS: TAMSULOSIN HCL 0.4 MG CAP.SR.24H PO SCH ×2 (09:00→18:59)
[2019-10-14] MEDS: APIXABAN 5 MG TABLET PO SCH ×2 (09:00→18:59)
--- NOTE | 2019-10-14 09:30 | PDOC PROGRESS REPORT ---
Subjective Progress Note for:: 10/14/19 Reason For Visit: GOUT OF RIGHT KNEE,OLECRANON BURSITIS OF RIGHT ELB 10/14/2019 States he is having less pain in his elbow and his knee. It appears medically stable to be discharged to nursing facility per family's choice Physical Exam Vital Signs: Temp Pulse Resp BP Pulse Ox 98.5 F 85 16 135/59 H 100 10/14/19 07:24 10/14/19 07:24 10/14/19 07:24 10/14/19 07:24 10/14/19 07:24 Intake & Output 10/13/19 10/14/19 10/15/19 06:59 06:59 06:59 Intake Total 4710 2347 250 Output Total 900 1525 Balance 3810 822 250 Weight 68 kg 72.2 kg General appearance: PRESENT: no acute distress, other - Carries on a normal conversation Respiratory exam: PRESENT: clear to auscultation haider. ABSENT: rales, rhonchi, wheezes Cardiovascular exam: PRESENT: RRR. ABSENT: diastolic murmur, rubs, systolic murmur Extremities exam: PRESENT: other - For to orthopedics Neurological exam: PRESENT: alert, awake, oriented to person, oriented to place, oriented to time, oriented to situation, CN II-XII grossly intact. ABSENT: motor sensory deficit Psychiatric exam: PRESENT: appropriate affect, normal mood. ABSENT: homicidal ideation, suicidal ideation Results Laboratory Results: 10/14/19 06:32 10/14/19 06:32 10/14/19 10/14/19 06:32 06:32 WBC 10.8 H RBC 3.43 L Hgb 10.7 L Hct 32.2 L MCV 94 MCH 31.2 MCHC 33.2 RDW 15.0 H Plt Count 246 Sodium 139.2 Potassium 4.3 Chloride 112 H Carbon Dioxide 20 L Anion Gap 7 BUN 46 H Creatinine 1.28 H Est GFR ( Amer) > 60 Glucose 114 H Calcium 8.1 L Total Bilirubin 0.9 AST 130 H Alkaline Phosphatase 172 H Total Protein 6.0 L Albumin 2.5 L 10/11/19 17:00 Synovial Fluid - Elbow AFB Smear Concentration - Final 10/11/19 17:00 Synovial Fluid - Elbow Acid Fast Bacilli Smear - Final 10/11/19 10/11/19 14:01 14:01 Creatine Kinase 850 H Troponin I 0.028 Impressions: Elbow X-Ray 10/11/19 00:00 IMPRESSION: POSTERIOR SOFT TISSUE SWELLING. NO ACUTE BONY FINDINGS. Hip/Pelvis X-Ray 10/11/19 00:00 IMPRESSION: INTACT RIGHT HIP PROSTHESIS. NO RADIOGRAPHIC EVIDENCE OF ACUTE INJURY. Knee X-Ray 10/11/19 00:00 IMPRESSION: DEGENERATIVE JOINT DISEASE. NO RADIOGRAPHIC EVIDENCE OF ACUTE INJURY. Head CT 10/11/19 13:44 IMPRESSION: CHRONIC CHANGES OF ATROPHY AND MICROVASCULAR ISCHEMIA. OLD LACUNAR INFARCTS. NO ACUTE PROCESS. EVIDENCE OF ACUTE STROKE: NO. Assessment and Plan - Diagnosis (1) Acute worsening of stage 3 chronic kidney disease Is this a current diagnosis for this admission?: Yes (2) Dehydration Is this a current diagnosis for this admission?: Yes (3) Gout of right knee Qualifiers: Gout etiology: unspecified cause Chronicity: acute Qualified Code(s): M10.9 - Gout, unspecified Is this a current diagnosis for this admission?: Yes (4) Leukocytosis Qualifiers: Leukocytosis type: unspecified Qualified Code(s): D72.829 - Elevated white blood cell count, unspecified Is this a current diagnosis for this admission?: Yes (5) Olecranon bursitis of right elbow Is this a current diagnosis for this admission?: Yes (6) Parkinson disease Is this a current diagnosis for this admission?: Yes - Plan Summary Summary: 10/12/2019 Patient's white count is pretty much stable at 10,600 had been as high as 14,700 on admission and hemoglobin is stable. BUN is 71 admission it was 78 ,creatinine 1.78 on admission it was 2.18, blood sugars are running about 90. Lactic acid on admission was 2.4 yesterday was 1.9 So far all micro studies are pending Patient is currently on normal saline at 100 mL's per hour, concerning antibiotics he is on IV vancomycin daily Continue hospitalization until cultures return with IV antibiotics 10/13/2019 See the note dictated above at the reason for visit Day 3 of IV vancomycin and culture results 10/14/2019 White counts down to 10,800 Renal functions are up slightly BUN 46 creatinine 1.28 Continue IV fluids there was post today and increased to 150 an hour, up from 100/h Hopefully discharge tomorrow per discharge planning. Will DC antibiotics at the time of discharge, no p.o. antibiotics to follow - Time Time Spent with patient: 25-34 minutes
[2019-10-14] MEDS: NORMAL SALINE 1000 ML 1,000 ML IV PRN ×2 (12:15→19:00)
[2019-10-14] MEDS: VANCOMYCIN HCL 750 MG in DEXTROSE 5%-WATER 250 ML IV SCH (18:59)
[2019-10-14] MEDS: ATORVASTATIN CALCIUM 80 MG TABLET PO SCH (21:40)
[2019-10-15] MEDS: VANCOMYCIN HCL 750 MG in DEXTROSE 5%-WATER 250 ML IV SCH (06:33)
[2019-10-15] MEDS: NORMAL SALINE 1000 ML 1,000 ML IV PRN (06:34)
[2019-10-15] MEDS: PANTOPRAZOLE SODIUM 20 MG TABLET.DR PO SCH (08:36)
[2019-10-15] MEDS: FINASTERIDE 5 MG TABLET PO SCH (08:36)
[2019-10-15] MEDS: AMLODIPINE BESYLATE 10 MG TABLET PO SCH (08:37)
[2019-10-15] MEDS: METOPROLOL SUCCINATE 25 MG TAB.SR.24H PO SCH (08:37)
[2019-10-15] MEDS: COLCHICINE 0.6 MG TABLET PO SCH (08:37)
--- NOTE | 2019-10-15 08:47 | PDOC TRANSFER SUMMARY ---
Impression - Admit/DC Date/PCP Admission Date/Primary Care Provider: 10/11/19 18:45 MATHEUS EVANS MD Discharge Date: 10/15/19 - Discharge Diagnosis (1) Acute worsening of stage 3 chronic kidney disease Is this a current diagnosis for this admission?: Yes (2) Dehydration Is this a current diagnosis for this admission?: Yes (3) Gout of right knee Is this a current diagnosis for this admission?: Yes (4) Leukocytosis Is this a current diagnosis for this admission?: Yes (5) Olecranon bursitis of right elbow Is this a current diagnosis for this admission?: Yes (6) Parkinson disease Is this a current diagnosis for this admission?: Yes - Assessment Summary: 10/12/2019 Patient's white count is pretty much stable at 10,600 had been as high as 14,700 on admission and hemoglobin is stable. BUN is 71 admission it was 78 ,creatinine 1.78 on admission it was 2.18, blood sugars are running about 90. Lactic acid on admission was 2.4 yesterday was 1.9 So far all micro studies are pending Patient is currently on normal saline at 100 mL's per hour, concerning antibiotics he is on IV vancomycin daily Continue hospitalization until cultures return with IV antibiotics 10/13/2019 See the note dictated above at the reason for visit Day 3 of IV vancomycin and culture results 10/14/2019 White counts down to 10,800 Renal functions are up slightly BUN 46 creatinine 1.28 Continue IV fluids there was post today and increased to 150 an hour, up from 100/h Hopefully discharge tomorrow per discharge planning. Will DC antibiotics at the time of discharge, no p.o. antibiotics to follow 10/15/2019 Patient has no clinical reason to continue antibiotics. Blood cultures negative White counts normal, no redness or inflammation of the joints Discharge back to [facility] on pretty much the same medications he was on prior to coming. This was what the son stated that he desired - Additional Information Resuscitation Status: Full Code Discharge Diet: As Tolerated Discharge Activity: Activity As Tolerated Referrals: [facility] [Outside] Home Medications: Amlodipine Besylate [Norvasc 10 mg Tablet] 10 mg PO QAM 08/17/19 Apixaban [Eliquis 5 mg Tablet] 5 mg PO BID 08/17/19 Atorvastatin Calcium [Lipitor 80 mg Tablet] 80 mg PO QHS 08/17/19 Carbidopa/Levodopa [Sinemet 25-250 mg Tablet] 1 each PO BID 08/17/19 Colchicine [Colcrys 0.6 mg Tablet] 0.6 mg PO QAM 08/17/19 Fesoterodine Fumarate [Toviaz] 4 mg PO QAM 08/17/19 Finasteride [Proscar] 5 mg PO QAM 08/17/19 Metoprolol Succinate [Toprol Xl 25 mg Tab.sr] 25 mg PO QAM 08/17/19 Omeprazole 20 mg PO QAM 08/17/19 Ondansetron HCl [Zofran 4 mg Tablet] 4 mg PO Q8HP PRN 08/17/19 Tamsulosin HCl [Flomax] 0.4 mg PO BID 08/17/19 Tramadol HCl [Ultram] 50 mg PO Q6HP PRN 08/17/19 Acetaminophen [Tylenol 325 mg Tablet] 650 mg PO Q4HP PRN 10/11/19 Mirtazapine 7.5 mg PO QHS 10/11/19 Acetaminophen [Tylenol 325 mg Tablet] 650 mg PO Q4HP PRN tablet 10/15/19 History of Present Illiness History of Present Illness: NELI WIGGINS is a 74 year old male Physical Exam Vital Signs: Temp Pulse Resp BP Pulse Ox 98.0 F 72 15 129/62 H 99 10/14/19 23:48 10/15/19 02:00 10/14/19 23:48 10/14/19 23:48 10/14/19 23:48 Intake & Output 10/14/19 10/15/19 10/16/19 06:59 06:59 06:59 Intake Total 2347 4370 Output Total 1525 1250 Balance 822 3120 Weight 72.2 kg 72.6 kg Results Laboratory Results: WBC 10.8 10^3/uL (4.0-10.5) H 10/14/19 06:32 RBC 3.43 10^6/uL (4.35-5.55) L 10/14/19 06:32 Hgb 10.7 g/dL (13.5-17.0) L 10/14/19 06:32 Hct 32.2 % (37.9-51.0) L 10/14/19 06:32 MCV 94 fl (80-97) 10/14/19 06:32 MCH 31.2 pg (27.0-33.4) 10/14/19 06:32 MCHC 33.2 g/dL (32.0-36.0) 10/14/19 06:32 RDW 15.0 % (11.5-14.0) H 10/14/19 06:32 Plt Count 246 10^3/uL (150-450) 10/14/19 06:32 Lymph % (Auto) 5.4 % (13-45) L 10/11/19 14:01 [place] % (Auto) 5.0 % (3-13) 10/11/19 14:01 Eos % (Auto) 0.0 % (0-6) 10/11/19 14:01 Baso % (Auto) 0.2 % (0-2) 10/11/19 14:01 Absolute Neuts (auto) 13.2 10^3/uL (1.7-8.2) H 10/11/19 14:01 Absolute Lymphs (auto) 0.8 10^3/uL (0.5-4.7) 10/11/19 14:01 Absolute Monos (auto) 0.7 10^3/uL (0.1-1.4) 10/11/19 14:01 Absolute Eos (auto) 0.0 10^3/uL (0.0-0.6) 10/11/19 14:01 Absolute Basos (auto) 0.0 10^3/uL (0.0-0.2) 10/11/19 14:01 Seg Neutrophils % 89.4 % (42-78) H 10/11/19 14:01 ESR 104 mm/hr (0-20) H 10/11/19 14:01 Sodium 139.2 mmol/L (137-145) 10/14/19 06:32 Potassium 4.3 mmol/L (3.6-5.0) 10/14/19 06:32 Chloride 112 mmol/L (98-107) H 10/14/19 06:32 Carbon Dioxide 20 mmol/L (22-30) L 10/14/19 06:32 Anion Gap 7 (5-19) 10/14/19 06:32 BUN 46 mg/dL (7-20) H 10/14/19 06:32 Creatinine 1.28 mg/dL (0.52-1.25) H 10/14/19 06:32 Est GFR ( Amer) > 60 (>60) 10/14/19 06:32 Est GFR (MDRD) Non-Af 55 (>60) L 10/14/19 06:32 Glucose 114 mg/dL (75-110) H 10/14/19 06:32 Lactic Acid (Sepsis) 1.9 mmol/L (0.7-2.1) 10/11/19 23:33 Uric Acid 12.8 mg/dL (3.5-8.5) H 10/11/19 14:01 Calcium 8.1 mg/dL (8.4-10.2) L 10/14/19 06:32 Total Bilirubin 0.9 mg/dL (0.2-1.3) 10/14/19 06:32 Direct Bilirubin 0.3 mg/dL (0.0-0.4) 10/14/19 06:32 Neonat Total Bilirubin Not Reportable 10/14/19 06:32 Neonat Direct Bilirubin Not Reportable 10/14/19 06:32 Neonat Indirect Bili Not Reportable 10/14/19 06:32 AST 130 U/L (17-59) H 10/14/19 06:32 ALT 44 U/L (<50) 10/14/19 06:32 Alkaline Phosphatase 172 U/L (38-126) H 10/14/19 06:32 Creatine Kinase 850 U/L (55-170) H 10/11/19 14:01 Troponin I 0.028 ng/mL 10/11/19 14:01 C-Reactive Protein 289.1 mg/L (<10.0) H 10/11/19 14:01 Total Protein 6.0 g/dL (6.3-8.2) L 10/14/19 06:32 Albumin 2.5 g/dL (3.5-5.0) L 10/14/19 06:32 Urine Color YELLOW 10/11/19 21:30 Urine Appearance CLEAR 10/11/19 21:30 Urine pH 5.0 (5.0-9.0) 10/11/19 21:30 Ur Specific [place] 1.017 10/11/19 21:30 Urine Protein NEGATIVE mg/dL (NEGATIVE) 10/11/19 21:30 Urine Glucose (UA) NEGATIVE mg/dL (NEGATIVE) 10/11/19 21:30 Urine Ketones TRACE mg/dL (NEGATIVE) H 10/11/19 21:30 Urine Blood NEGATIVE (NEGATIVE) 10/11/19 21:30 Urine Nitrite NEGATIVE (NEGATIVE) 10/11/19 21:30 Urine Bilirubin NEGATIVE (NEGATIVE) 10/11/19 21:30 Urine Urobilinogen NEGATIVE mg/dL (<2.0) 10/11/19 21:30 Ur Leukocyte Esterase NEGATIVE (NEGATIVE) 10/11/19 21:30 Urine WBC (Auto) 0 /HPF 10/11/19 21:30 Urine RBC (Auto) 0 /HPF 10/11/19 21:30 U Hyaline Cast (Auto) 8 /LPF 10/11/19 21:30 Urine Bacteria (Auto) TRACE /HPF 10/11/19 21:30 Squamous Epi Cells Auto <1 /HPF 10/11/19 21:30 Urine Mucus (Auto) RARE /LPF 10/11/19 21:30 Urine Ascorbic Acid NEGATIVE (NEGATIVE) 10/11/19 21:30 10/11/19 14:01 Troponin I 0.028 Impressions: Elbow X-Ray 10/11/19 00:00 IMPRESSION: POSTERIOR SOFT TISSUE SWELLING. NO ACUTE BONY FINDINGS. Hip/Pelvis X-Ray 10/11/19 00:00 IMPRESSION: INTACT RIGHT HIP PROSTHESIS. NO RADIOGRAPHIC EVIDENCE OF ACUTE INJURY. Knee X-Ray 10/11/19 00:00 IMPRESSION: DEGENERATIVE JOINT DISEASE. NO RADIOGRAPHIC EVIDENCE OF ACUTE INJURY. Head CT 10/11/19 13:44 IMPRESSION: CHRONIC CHANGES OF ATROPHY AND MICROVASCULAR ISCHEMIA. OLD LACUNAR INFARCTS. NO ACUTE PROCESS. EVIDENCE OF ACUTE STROKE: NO. Stroke Is this a Stroke Patient?: No Acute Heart Failure - Is this a Heart Failure Patient?: No
[2019-10-15] MEDS: TAMSULOSIN HCL 0.4 MG CAP.SR.24H PO SCH (11:23)
[2019-10-15] MEDS: CARBIDOPA/LEVODOPA 25-250 MG TABLET PO SCH (11:23)
[2019-10-15] MEDS: APIXABAN 5 MG TABLET PO SCH (11:23)
[2019-10-15 11:47] VITALS: BP 126/54
== END 2019-10-15 12:20 | DRG 554 ==
LOC: ER 10:35 → EH 18:45 → 5 21:46
PROVIDERS: ADMIT Family Medicine; ATTEND Family Medicine
PROC: 0R9L3ZX Drainage of Right Elbow Joint, Percutaneous Approach, Diagnostic (ICD-10-PCS; principal; 2019-10-12)
DX: M10.021 Idiopathic gout, right elbow (principal); N17.9 Acute kidney failure, unspecified; M10.061 Idiopathic gout, right knee; G20 Parkinson's disease; N18.3 Chronic kidney disease, stage 3 (moderate); I12.9 Hypertensive chronic kidney disease with stage 1 through stage 4 chronic kidney disease, or unspecified chronic kidney disease; F02.80 Dementia in other diseases classified elsewhere, unspecified severity, without behavioral disturbance, psychotic disturbance, mood disturbance, and anxiety; K21.9 Gastro-esophageal reflux disease without esophagitis; M19.90 Unspecified osteoarthritis, unspecified site; I71.4 Abdominal aortic aneurysm, without rupture; N40.0 Benign prostatic hyperplasia without lower urinary tract symptoms; E86.0 Dehydration; D72.829 Elevated white blood cell count, unspecified; Z86.73 Personal history of transient ischemic attack (TIA), and cerebral infarction without residual deficits; Z79.01 Long term (current) use of anticoagulants; Z79.899 Other long term (current) drug therapy; Z91.81 History of falling; Z87.81 Personal history of (healed) traumatic fracture; Z82.49 Family history of ischemic heart disease and other diseases of the circulatory system; Z96.641 Presence of right artificial hip joint
CPT/HCPCS: 36415; 51702; 70450; 80053; 81001; 82550; 83605; 84484; 84550; 85025; 85027; 85652; 86140; 87015; 87040; 87070; 87075; 87101; 87116; 87205; 87206; 93005; 93010; 96361; 96374; 96375; 99285; J2270; J2405; J3370; J3490; J7030; J7060

== ENCOUNTER 2019-12-19 08:52 | Inpatient (IN) | payer MEDICARE, MEDICAID ==
[2019-12-19 10:20] LABS: ABSOLUTE MONOCYTES (AUTO) 0.6 10^3/uL (0.1-1.4); ABSOLUTE NEUT (AUTO) 9.4 10^3/uL (1.7-8.2); BASOPHILS % (AUTO) 0.3 % (0-2); EOSINOPHILS % (AUTO) 0.3 % (0-6); HEMATOCRIT 32.2 % (37.9-51.0); HEMOGLOBIN 10.6 g/dL (13.5-17.0); LYMPHOCYTES % (AUTO) 16.9 % (13-45); MEAN CORPUSCULAR HEMOGLOBIN 30.2 pg (27.0-33.4); MEAN CORPUSCULAR HGB CONC 33.1 g/dL (32.0-36.0); MEAN CORPUSCULAR VOLUME 91 fl (80-97); MONOCYTES % (AUTO) 4.6 % (3-13); PLATELET COUNT 246 10^3/uL (150-450); RED BLOOD COUNT 3.53 10^6/uL (4.35-5.55); RED CELL DISTRIBUTION WIDTH 17.4 % (11.5-14.0); SEGMENTED NEUTROPHILS % (AUTO) 77.9 % (42-78); TOTAL CELLS COUNTED % (AUTO) 100 %
--- NOTE | 2019-12-19 10:21 | RADIOLOGY REPORT (SQ) ---
EXAM DESCRIPTION: CHEST SINGLE VIEW COMPLETED DATE/TIME: 12/19/2019 10:12 am REASON FOR STUDY: fever COMPARISON: 08/15/2019. EXAM PARAMETERS: NUMBER OF VIEWS: One view. TECHNIQUE: Single frontal radiographic view of the chest acquired. RADIATION DOSE: NA LIMITATIONS: Rotated. FINDINGS: LUNGS AND PLEURA: Suspect consolidation in the left lung base although difficult to evalua te due to rotation. Possible left pleural effusion. Right lung clear. MEDIASTINUM AND HILAR STRUCTURES: No masses. Contour normal. HEART AND VASCULAR STRUCTURES: Heart normal in size. Normal vasculature. BONES: No acute findings. HARDWARE: Pacemaker. OTHER: No other significant finding. IMPRESSION: LIMITED STUDY. SUSPECT LEFT LOWER LOBE PNEUMONIA. TECHNICAL DOCUMENTATION: JOB ID: [id number] [employer]- All Rights Reserved Reading location - IP/workstation name: [email or web address]
[2019-12-19 10:29] LABS: INTERNATIONAL RATION (INR) 1.44; PROTHROMBIN TIME 17.7 SEC (11.4-15.4)
[2019-12-19 10:33] LABS: ALBUMIN 2.4 g/dL (3.5-5.0); ALKALINE PHOSPHATASE 122 U/L (38-126); ANION GAP 6 (5-19); ASPARTATE AMINO TRANSFERASE 70 U/L (17-59); BILIRUBIN,DIRECT 0.4 mg/dL (0.0-0.4); BILIRUBIN,TOTAL 0.5 mg/dL (0.2-1.3); BLOOD UREA NITROGEN 32 mg/dL (7-20); CALCIUM 8.5 mg/dL (8.4-10.2); CARBON DIOXIDE 27 mmol/L (22-30); CHLORIDE 102 mmol/L (98-107); GLUCOSE 95 mg/dL (75-110); POTASSIUM 4.8 mmol/L (3.6-5.0); TOTAL PROTEIN 6.2 g/dL (6.3-8.2)
[2019-12-19 11:01] LABS: A TYPE INFLUENZA AG NEGATIVE (NEGATIVE); B INFLUENZA AG NEGATIVE (NEGATIVE)
[2019-12-19] MEDS ORDERED: NORMAL SALINE 1000 ML 1,000 ML IV ONE (11:23)
[2019-12-19] MEDS ORDERED: PIPERACILLIN/TAZOBACTAM 4.5 GM VIAL IV ONE (12:14)
[2019-12-19] MEDS ORDERED: VANCOMYCIN HCL INJ 1000 MG VIAL IV ONE (12:15)
[2019-12-19 12:45] LABS: APPEARANCE,URINE CLEAR; BILIRUBIN,URINE NEGATIVE (NEGATIVE); COLOR,URINE YELLOW; GLUCOSE, URINE NEGATIVE (NEGATIVE); KETONES,URINE NEGATIVE (NEGATIVE); LEUKOCYTE ESTERASE,URINE TRACE (NEGATIVE); NITRITE,URINE NEGATIVE (NEGATIVE); PROTEIN,URINE NEGATIVE (NEGATIVE); URINE SPECIFIC GRAVITY 1.012; UROBILINOGEN,URINE NEGATIVE mg/dL (<2.0)
--- NOTE | 2019-12-19 13:43 | RADIOLOGY REPORT (SQ) ---
EXAM DESCRIPTION: CT ABD/PELVIS WITH IV ONLY COMPLETED DATE/TIME: 12/19/2019 1:18 pm REASON FOR STUDY: decubitus ulcer right hip COMPARISON: 08/16/2019 TECHNIQUE: CT scan of the abdomen and pelvis performed using helical scanning technique with dynamic intravenous contrast injection. No oral contrast. Images reviewed with lung, soft tissue, and bone windows. Reconstructed coronal and sagittal MPR images reviewed. Delayed images were not acquired. Al l images stored on PACS. All CT scanners at this facility use dose modulation, iterative reconstruction, and/or weight based d osing when appropriate to reduce radiation dose to as low as reasonably achievable (ALARA). [facility]: Dose Right [facility]: CareDose [facility]: Dose Right [facility]: Teradose 4D [facility]: PVPower CONTRAST TYPE AND DOSE: contrast/concentration: Isovue 350.00 mg/ml; Total Contrast Delivered: 72.0 ml; Total Saline Delivered: 66.0 ml RENAL FUNCTION: Creatinine 1.2 RADIATION DOSE: CT Rad equipment meets quality standard of care and radiation dose reduction techniq ues were employed. CTDIvol: 6.8 mGy. DLP: 385 mGy-cm.. LIMITATIONS: None. FINDINGS: LOWER CHEST: New opacity at the left lung base having the appearance of pneumonia. Not se en on the previous CT scan. LIVER: Normal size. No masses. No dilated ducts. SPLEEN: Normal size. No focal lesions. PANCREAS: No masses. No significant calcifications. No adjacent inflammation or peripancreatic fluid collections. Pancreatic duct not dilated. GALLBLADDER: No identified stones by CT criteria. No inflammatory changes to suggest cholecystitis. ADRENAL GLANDS: No significant masses or asymmetry. RIGHT KIDNEY AND URETER: No solid masses. No significant calcifications. No hydronephrosis or hyd roureter. LEFT KIDNEY AND URETER: No solid masses. No significant calcifications. No hydronephrosis or hydr oureter. AORTA AND VESSELS: 4 cm infrarenal abdominal aortic aneurysm. Stable. RETROPERITONEUM: No retroperitoneal adenopathy, hemorrhage or masses. BOWEL AND PERITONEAL CAVITY: No masses or inflammatory changes. No free fluid or peritoneal masses. APPENDIX: Not visualized. PELVIS: Feldman catheter in the bladder. ABDOMINAL WALL: No masses. No hernias. BONES: No significant or acute findings. OTHER: No other significant finding. IMPRESSION: New opacity at the left lung base most consistent with pneumonia. No acute intra-abdominal process. There is a 4 cm infrarenal abdominal aortic aneurysm which is stab le. Feldman catheter in the bladder without decompression of the bladder. TECHNICAL DOCUMENTATION: JOB ID: [id number] Quality ID # [id number]: Final reports with documentation of one or more dose reduction techniques (e.g., Au tomated exposure control, adjustment of the mA and/or kV according to patient size, use of iterative reconstruction technique) 2010 [employer]- All Rights Reserved Reading location - IP/workstation name: [email or web address]
[2019-12-19] MEDS ORDERED: VANCOMYCIN HCL 0 MG in DEXTROSE 5%-WATER 250 ML IV NR (17:15)
[2019-12-19] MEDS ORDERED: HYDRALAZINE HCL INJ/PF 20 MG/1 ML SDV IV PRN (17:28)
--- NOTE | 2019-12-19 17:44 | ER Document Report ---
Entered by WAYNE RANDALL SCRIBE 12/19/19 1106 Acting as scribe for:JOHN PRADHAN MD ED General - General Chief Complaint: Fever Stated Complaint: FEVER Time Seen by Provider: 12/19/19 10:34 Primary Care Provider: MATHEUS EVANS MD [Primary Care Provider] - Follow up as needed Mode of Arrival: Medic Information source: Patient, [facility] Records, Outside Facility Records Cannot obtain history due to: Dementia Notes: This 74 year old male patient presents to the emergency department today with complaints of right sided hip pain. Patient is demented and a poor historian at baseline so history is very limited. EMS states that prison staff at [place] reported fevers this morning as well as refusing to give blood and refusing to eat. Patient has a decubitus ulcer over the right buttock. TRAVEL OUTSIDE OF THE [place] 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, Hx Parkinson's Disease Renal/ Medical History: Reports: Hx Benign Prostatic Hyperplasia, Hx Renal Insufficiency GI Medical History: Reports: Hx Gastroesophageal Reflux Disease Musculoskeletal Medical History: Reports Hx Arthritis, Reports Hx Gout Psychiatric Medical History: Reports: Hx Dementia Past Surgical History: Reports: Hx Orthopedic Surgery - Right hip, Hx Vascular Surgery - Left carotid endarterectomy - Immunizations Hx Diphtheria, Pertussis, Tetanus Vaccination: No Review of Systems - Review of Systems -: Yes ROS unobtainable due to patient's medical condition Physical Exam - Vital signs Vitals: Resp Pulse Ox 18 97 12/19/19 09:00 12/19/19 09:00 - General General appearance: Alert - HEENT Head: Normocephalic, Atraumatic Eyes: Other - Pupils are 3mm bilaterally and minimally reactive - Respiratory Respiratory status: No respiratory distress Chest status: Nontender Breath sounds: Normal - Cardiovascular Rhythm: Regular Heart sounds: Normal auscultation Murmur: No - Abdominal Inspection: Normal Distension: No distension, Other Bowel sounds: Normal - Extremities General upper extremity: Normal ROM. No: Edema General lower extremity: Tender - over right hip ulcer, Other - Contracted bilaterally, knees held in flexion. - Neurological Neuro grossly intact: Yes Cognition: Confused - Skin Skin Temperature: Hot Notes: There is a decubitus ulcer of the right right hip with a 4cm crater that was packed this morning with gauze, it is malodorous. There is a smaller ulcer distal to this previously mentioned one that is very superficial without crater. There is a small skin tear over the left dorsal distal forearm. Course - Re-evaluation Re-evalutation: 12/19/19 16:20 Patient resting comfortably at this time. Sats are 98% - Vital Signs Vital signs: Temp Pulse Resp BP Pulse Ox 97.2 F 16 127/50 H 98 12/19/19 14:29 12/19/19 14:01 12/19/19 14:01 12/19/19 14:01 - Laboratory Result Diagrams: 12/19/19 09:04 12/19/19 09:04 Laboratory results interpreted by me: 12/19/19 12/19/19 12/19/19 09:04 09:04 09:04 WBC 12.0 H RBC 3.53 L Hgb 10.6 L Hct 32.2 L RDW 17.4 H Absolute Neuts (auto) 9.4 H PT 17.7 H Sodium 135.4 L BUN 32 H Est GFR (MDRD) Non-Af 57 L AST 70 H Total Protein 6.2 L Albumin 2.4 L Urine Blood Ur Leukocyte Esterase 12/19/19 12:06 WBC RBC Hgb Hct RDW Absolute Neuts (auto) PT Sodium BUN Est GFR (MDRD) Non-Af AST Total Protein Albumin Urine Blood SMALL H Ur Leukocyte Esterase TRACE H - Diagnostic Test Radiology reviewed: Image reviewed, Reports reviewed Radiology results interpreted by me: 12/19/19 16:21 Chest x-ray discloses infiltrate in the left base. Consistent with pneumonia. 12/19/19 16:[address] disclosed no acute intra-abdominal process. Fusiform 4 cm stable abdominal aortic aneurysm otherwise no acute process. - EKG Interpretation by Me Additional EKG results interpreted by me: 12/19/19 16:23 Twelve-lead EKG done at 1016 shows atrial paced complexes. Ventricular bigeminy. Left anterior fascicular block Discharge - Discharge Clinical Impression: Dehydration, Chronic kidney disease, Chronic atrial fibrillation, AAA (abdominal aortic aneurysm) without rupture Left lower lobe pneumonia Qualifiers: Pneumonia type: due to unspecified organism Qualified Code(s): J18.9 - Pneumonia, unspecified organism Fever Qualifiers: Encounter type: initial encounter Decubitus ulcer Qualifiers: Pressure injury location: buttock Pressure injury stage: stage 4 Condition: Fair Disposition: ADMITTED INPATIENT Admitting Provider: Whitney (Hospitalist) Unit Admitted: Telemetry Referrals: MATHEUS EVANS MD [Primary Care Provider] - Follow up as needed I personally performed the services described in the documentation, reviewed and edited the documentation which was dictated to the scribe in my presence, and it accurately records my words and actions.
[2019-12-19] MEDS ORDERED: HEPARIN SOD (PORCINE) 1,000 UNIT/ML 10 ML VIAL IV ONE (17:45)
[2019-12-19 17:47] LABS: INTERNATIONAL RATION (INR) 1.33; PROTHROMBIN TIME 16.6 SEC (11.4-15.4)
[2019-12-19 17:48] LABS: PARTIAL THROMBOPLASTIN TIME 37.7 SEC (23.5-35.8)
--- NOTE | 2019-12-19 18:24 | PDOC H&P ---
History of Present Illness Admission Date/PCP: MATHEUS EVANS MD Patient complains of: fever History of Present Illness: NELI WIGGINS is a 74 year old male with a past medical history of atrial fibrillation on Eliquis, hypertension, Parkinson's disease, dementia, prior CVA, history of abdominal aortic aneurysm and chronic right hip ulcer which was brought into the ER from primary due to fever. Patient reportedly had a fever of 102F at the prison. He was also reportedly having poor appetite and intake and was noted to be weaker than usual. In the ER, work-up was remarkable for leukocytosis, new left lower lobe pneumonia and a fall smelling draining right hip ulcer. On encounter, he appears comfortable in room air but does not appear to be interested in engaging in conversation. Is able to tell me his name. He is able tell me it is Februar y 2019 but thinks he is still at [facility] at the moment. He does say that he has been having cough for a few days. He denies chest pain or shortness of breath. He does complain of right hip pain. Past Medical History Cardiac Medical History: Reports: Hypertension Denies: Myocardial Infarction Pulmonary Medical History: Denies: Asthma, Bronchitis, Chronic Obstructive Pulmonary Disease (COPD), Pneumonia Neurological Medical History: Denies: Seizures GI Medical History: Reports: Gastroesophageal Reflux Disease Denies: Hepatitis, Hiatal Hernia Musculoskeltal Medical History: Reports: Arthritis, Gout Psychiatric Medical History: Reports: Dementia Hematology: Denies: Anemia, Sickle Cell Disease Past Surgical History Past Surgical History: Reports: Orthopedic Surgery - Right hip, Vascular Surgery - Left carotid endarterectomy Denies: Pacemaker Social History Smoking Status: Former Smoker Frequency of Alcohol Use: None Hx Recreational Drug Use: No Drugs: None Family History Family History: Hypertension Parental Family History Reviewed: Yes - no premature CAD Children Family History Reviewed: No Sibling(s) Family History Reviewed.: No Medication/Allergy Home Medications: Amlodipine Besylate [Norvasc 10 mg Tablet] 10 mg PO QAM 08/17/19 Apixaban [Eliquis 5 mg Tablet] 5 mg PO BID 08/17/19 Atorvastatin Calcium [Lipitor 80 mg Tablet] 80 mg PO QHS 08/17/19 Carbidopa/Levodopa [Sinemet 25-250 mg Tablet] 1 each PO Q12 08/17/19 Colchicine [Colcrys 0.6 mg Tablet] 0.6 mg PO QAM 08/17/19 Fesoterodine Fumarate [Toviaz] 4 mg PO QAM 08/17/19 Finasteride [Proscar] 5 mg PO QAM 08/17/19 Metoprolol Succinate [Toprol Xl 25 mg Tab.sr] 25 mg PO QAM 08/17/19 Ondansetron HCl [Zofran 4 mg Tablet] 4 mg PO Q8HP PRN 08/17/19 Tamsulosin HCl [Flomax] 0.4 mg PO BID 08/17/19 Tramadol HCl [Ultram] 50 mg PO Q6HP PRN 08/17/19 Acetaminophen [Tylenol 325 mg Tablet] 650 mg PO Q4HP PRN 10/11/19 Mirtazapine 15 mg PO QHS 10/11/19 Allopurinol [Zyloprim 100 mg Tablet] 100 mg PO DAILY 12/20/19 Amino Acids/Protein Hydrolys [Pro-Stat Awc Liquid Packet] 1 pkt PO DAILY MDD STOP 01/20/20 12/20/19 Ascorbic Acid [Vitamin C 500 mg Tablet] 500 mg PO DAILY 12/20/19 Esomeprazole Magnesium [Nexium] 20 mg PO DAILY 12/20/19 Multivitamin with Minerals [One Daily Plus Minerals] 1 each PO DAILY 12/20/19 Allergies/Adverse Reactions: No Known Allergies Allergy (Verified 12/19/19 09:11) Review of Systems All systems: reviewed and no additional remarkable complaints except as stated - as mentioned in HPI Physical Exam Vital Signs: Temp Pulse Resp BP Pulse Ox 97.2 F 16 127/50 H 98 12/19/19 14:29 12/19/19 14:01 12/19/19 14:01 12/19/19 14:01 Intake & Output 12/18/19 12/19/19 12/20/19 06:59 06:59 06:59 Intake Total 1000 Balance 1000 Weight 138 lb 3.677 oz General appearance: PRESENT: no acute distress, well-developed, well-nourished Head exam: PRESENT: atraumatic, normocephalic Eye exam: PRESENT: conjunctiva pink, EOMI, PERRLA. ABSENT: scleral icterus Ear exam: PRESENT: normal external ear exam Mouth exam: PRESENT: moist, tongue midline Neck exam: ABSENT: carotid bruit, JVD, lymphadenopathy, thyromegaly Respiratory exam: PRESENT: rhonchi. ABSENT: rales, wheezes Pulses: PRESENT: normal dorsalis pedis pul GI/Abdominal exam: PRESENT: normal bowel sounds, soft. ABSENT: distended, guarding, mass, organolmegaly, rebound, tenderness Rectal exam: PRESENT: deferred Extremities exam: PRESENT: other - + foul smelling right hip ulcer Neurological exam: PRESENT: alert, awake, oriented to person, oriented to time, CN II-XII grossly intact. ABSENT: motor sensory deficit Results Laboratory Results: 12/19/19 09:04 12/19/19 09:04 12/19/19 12/19/19 12/19/19 09:04 09:04 09:04 WBC 12.0 H RBC 3.53 L Hgb 10.6 L Hct 32.2 L MCV 91 MCH 30.2 MCHC 33.1 RDW 17.4 H Plt Count 246 Seg Neutrophils % 77.9 Sodium 135.4 L Cancelled Potassium 4.8 Cancelled Chloride 102 Cancelled Carbon Dioxide 27 Cancelled Anion Gap 6 Cancelled BUN 32 H Cancelled Creatinine 1.24 Cancelled Est GFR ( Amer) > 60 Cancelled Est GFR (Non-Af Amer) Cancelled Glucose 95 Cancelled Lactic Acid Calcium 8.5 Cancelled Total Bilirubin 0.5 Cancelled AST 70 H Cancelled Alkaline Phosphatase 122 Cancelled Total Protein 6.2 L Cancelled Albumin 2.4 L Cancelled Lipase 145.7 Urine Color Urine Appearance Urine pH Ur Specific [place] Urine Protein Urine Glucose (UA) Urine Ketones Urine Blood Urine Nitrite Ur Leukocyte Esterase Urine WBC (Auto) Urine RBC (Auto) 12/19/19 12/19/19 11:45 12:06 WBC RBC Hgb Hct MCV MCH MCHC RDW Plt Count Seg Neutrophils % Sodium Potassium Chloride Carbon Dioxide Anion Gap BUN Creatinine Est GFR ( Amer) Est GFR (Non-Af Amer) Glucose Lactic Acid 1.0 Calcium Total Bilirubin AST Alkaline Phosphatase Total Protein Albumin Lipase Urine Color YELLOW Urine Appearance CLEAR Urine pH 6.0 Ur Specific [place] 1.012 Urine Protein NEGATIVE Urine Glucose (UA) NEGATIVE Urine Ketones NEGATIVE Urine Blood SMALL H Urine Nitrite NEGATIVE Ur Leukocyte Esterase TRACE H Urine WBC (Auto) 20 Urine RBC (Auto) 8 12/19/19 09:04 Troponin I 0.037 Impressions: Chest X-Ray 12/19/19 09:54 IMPRESSION: LIMITED STUDY. SUSPECT LEFT LOWER LOBE PNEUMONIA. Abdomen/Pelvis CT 12/19/19 11:25 IMPRESSION: New opacity at the left lung base most consistent with pneumonia. No acute intra-abdominal process. There is a 4 cm infrarenal abdominal aortic aneurysm which is stable. Feldman catheter in the bladder without decompression of the bladder. Assessment and Plan - Diagnosis (1) Pneumonia Is this a current diagnosis for this admission?: Yes Plan: Will treat as HCAP as he did have recent hospitalization. Start patient on cefepime and vancomycin. Will order for sputum culture. (2) UTI (urinary tract infection) Is this a current diagnosis for this admission?: Yes Plan: Will be started on cefepime for pneumonia as well. We will send for urine culture. (3) Decubitus ulcer of right hip Is this a current diagnosis for this admission?: Yes Plan: Restarted IV antibiotics. Will consult surgery for further recommendations. (4) HTN (hypertension) Is this a current diagnosis for this admission?: Yes (5) Atrial fibrillation Is this a current diagnosis for this admission?: Yes Plan: Hold Eliquis. Will keep patient on heparin for now in case he needs surgical intervention for his possibly infected hip ulcer. - Time Time Spent with patient: 25-34 minutes
[2019-12-19] MEDS: HEPARIN SODIUM,PORCINE/D5W 25,000 UNIT/250 ML RTUINJ IV PRN (19:02)
[2019-12-19] MEDS ORDERED: DILTIAZEM HCL/D5W 125 MG/125 ML RTUINJ IV ONE (19:10)
[2019-12-19] MEDS ORDERED: DILTIAZEM HCL INJ 25 MG/5 ML VIAL ONE (19:10)
[2019-12-19] MEDS ORDERED: DILTIAZEM HCL/D5W 125 MG/125 ML RTUINJ IV PRN (19:21)
[2019-12-19] MEDS ORDERED: DILTIAZEM HCL INJ 25 MG/5 ML VIAL IV ONE (19:30)
[2019-12-19] MEDS ORDERED: CEFEPIME 1 GM/D5W RTU 1 GM/50 ML RTUPB IV ONE (19:30)
[2019-12-19] MEDS ORDERED: HEPARIN SOD (PORCINE) 1,000 UNIT/ML 10 ML VIAL IV PRN (20:07)
[2019-12-19] MEDS ORDERED: METOPROLOL TARTRATE PF/INJ 5 MG/5 ML SDV IV ONE ×2 (21:17→21:30)
[2019-12-19] MEDS ORDERED: MIRTAZAPINE 15 MG TABLET PO ONE (21:30)
[2019-12-19] MEDS ORDERED: CARBIDOPA/LEVODOPA 25-250 MG TABLET ONE (21:51)
[2019-12-19] MEDS: CARBIDOPA/LEVODOPA 25-250 MG TABLET PO SCH (21:57)
[2019-12-19] MEDS ORDERED: HEPARIN SOD (PORCINE) 5,000 UNIT/ML 1 ML VIAL SUBCUT SCH (22:00)
[2019-12-19] MEDS ORDERED: METOPROLOL TARTRATE PF/INJ 5 MG/5 ML SDV IV PRN (22:15)
--- NOTE | 2019-12-20 00:19 | EKG REPORT ---
SEVERITY:- ABNORMAL ECG - CONSIDER A FLUTTER WITH 2:1 CONDUCTION LEFT ANTERIOR FASCICULAR BLOCK ABNRM R PROG, CONSIDER ASMI OR LEAD PLACEMENT REPOLARIZATION ABNORMALITY, PROB RATE RELATED PROLONGED QT INTERVAL : Confirmed by: Alek Christine 20-Dec-2019 00:18:30
--- NOTE | 2019-12-20 00:19 | EKG REPORT ---
SEVERITY:- ABNORMAL ECG - ATRIAL-PACED COMPLEXES VENTRICULAR BIGEMINY LEFT ANTERIOR FASCICULAR BLOCK ABNRM R PROG, CONSIDER ASMI OR LEAD PLACEMENT BORDERLINE T ABNORMALITIES, ANTERIOR LEADS : Confirmed by: Alek Christine 20-Dec-2019 00:18:53
[2019-12-20 02:26] LABS: HEMATOCRIT 33.4 % (37.9-51.0); HEMOGLOBIN 10.8 g/dL (13.5-17.0); MEAN CORPUSCULAR HEMOGLOBIN 29.7 pg (27.0-33.4); MEAN CORPUSCULAR HGB CONC 32.4 g/dL (32.0-36.0); MEAN CORPUSCULAR VOLUME 92 fl (80-97); PLATELET COUNT 239 10^3/uL (150-450); RED BLOOD COUNT 3.64 10^6/uL (4.35-5.55); RED CELL DISTRIBUTION WIDTH 16.9 % (11.5-14.0); WHITE BLOOD COUNT 13.9 10^3/uL (4.0-10.5)
[2019-12-20 03:25] LABS: ANION GAP 5 (5-19); BLOOD UREA NITROGEN 25 mg/dL (7-20); CARBON DIOXIDE 23 mmol/L (22-30); CHLORIDE 106 mmol/L (98-107); GLUCOSE 88 mg/dL (75-110); POTASSIUM 4.8 mmol/L (3.6-5.0)
[2019-12-20] MEDS: MORPHINE SULFATE 10 MG/ML INJ IV PRN ×3 (04:44→23:26)
[2019-12-20] MEDS: CEFEPIME 1 GM/D5W RTU 1 GM/50 ML RTUPB IV SCH ×2 (05:22→17:13)
[2019-12-20] MEDS ORDERED: METOPROLOL SUCCINATE 25 MG TAB.SR.24H PO SCH (10:00)
[2019-12-20] MEDS: CARBIDOPA/LEVODOPA 25-250 MG TABLET PO SCH ×2 (10:11→21:17)
[2019-12-20] MEDS: MIRTAZAPINE 15 MG TABLET PO SCH (10:11)
[2019-12-20] MEDS: ACETAMINOPHEN 325 MG TABLET PO PRN ×2 (10:11→16:15)
[2019-12-20] MEDS: VANCOMYCIN HCL 1,000 MG in DEXTROSE 5%-WATER 250 ML IV SCH (10:12)
--- NOTE | 2019-12-20 10:51 | PDOC PROGRESS REPORT ---
Subjective Progress Note for:: 12/20/19 Subjective:: NELI WIGGINS is a 74 year old male with a past medical history of atrial fibrillation on Eliquis, hypertension, Parkinson's disease, dementia, prior CVA, history of abdominal aortic aneurysm and chronic right hip ulcer which was brought into the ER from primary due to fever. Patient was found to have left lower lobe pneumonia, UTI and foul-smelling draining right hip ulcer. Patient also went into A. fib with RVR last night and was started on Cardizem drip. He also did get some improvement with IV Lopressor. His Eliquis was placed on hold and he is on heparin drip in case he needs debridement or intervention for his ulcer. Of encounter this morning, he appears comfortable in room air. Denies chest pain or shortness of breath. He was maxed on Cardizem drip last night but is currently now down to 10. Will increase p.o. Lopressor and will try to wean off Cardizem today. Reason For Visit: INFECTED RIGHT HIP ULCER,UTI Physical Exam Vital Signs: Temp Pulse Resp BP Pulse Ox 98.6 F 62 15 137/49 H 96 12/20/19 09:00 12/20/19 09:00 12/20/19 09:00 12/20/19 09:00 12/20/19 09:00 Intake & Output 12/19/19 12/20/19 12/21/19 06:59 06:59 06:59 Intake Total 1118 Output Total 1260 Balance -142 Weight 130 lb 15.273 oz General appearance: PRESENT: no acute distress, well-developed, well-nourished Head exam: PRESENT: atraumatic, normocephalic Eye exam: PRESENT: conjunctiva pink, EOMI, PERRLA. ABSENT: scleral icterus Ear exam: PRESENT: normal external ear exam Mouth exam: PRESENT: moist, tongue midline Neck exam: ABSENT: carotid bruit, JVD, lymphadenopathy, thyromegaly Respiratory exam: PRESENT: rhonchi. ABSENT: rales, wheezes Cardiovascular exam: PRESENT: irregular rhythm. ABSENT: diastolic murmur, rubs Pulses: PRESENT: normal dorsalis pedis pul GI/Abdominal exam: PRESENT: normal bowel sounds, soft. ABSENT: distended, guarding, mass, organolmegaly, rebound, tenderness Rectal exam: PRESENT: deferred Neurological exam: PRESENT: alert, awake, oriented to person, oriented to place, CN II-XII grossly intact. ABSENT: motor sensory deficit Results Laboratory Results: 12/20/19 02:10 12/20/19 02:10 12/19/19 12/19/19 12/19/19 09:04 09:04 09:04 WBC 12.0 H RBC 3.53 L Hgb 10.6 L Hct 32.2 L MCV 91 MCH 30.2 MCHC 33.1 RDW 17.4 H Plt Count 246 Seg Neutrophils % 77.9 Sodium 135.4 L Cancelled Potassium 4.8 Cancelled Chloride 102 Cancelled Carbon Dioxide 27 Cancelled Anion Gap 6 Cancelled BUN 32 H Cancelled Creatinine 1.24 Cancelled Est GFR ( Amer) > 60 Cancelled Est GFR (Non-Af Amer) Cancelled Glucose 95 Cancelled Lactic Acid Calcium 8.5 Cancelled Total Bilirubin 0.5 Cancelled AST 70 H Cancelled Alkaline Phosphatase 122 Cancelled C-Reactive Protein Total Protein 6.2 L Cancelled Albumin 2.4 L Cancelled Lipase 145.7 Urine Color Urine Appearance Urine pH Ur Specific [place] Urine Protein Urine Glucose (UA) Urine Ketones Urine Blood Urine Nitrite Ur Leukocyte Esterase Urine WBC (Auto) Urine RBC (Auto) 12/19/19 12/19/19 12/19/19 09:04 11:45 12:06 WBC RBC Hgb Hct MCV MCH MCHC RDW Plt Count Seg Neutrophils % Sodium Potassium Chloride Carbon Dioxide Anion Gap BUN Creatinine Est GFR ( Amer) Est GFR (Non-Af Amer) Glucose Lactic Acid 1.0 Calcium Total Bilirubin AST Alkaline Phosphatase C-Reactive Protein 140.7 H Total Protein Albumin Lipase Urine Color YELLOW Urine Appearance CLEAR Urine pH 6.0 Ur Specific [place] 1.012 Urine Protein NEGATIVE Urine Glucose (UA) NEGATIVE Urine Ketones NEGATIVE Urine Blood SMALL H Urine Nitrite NEGATIVE Ur Leukocyte Esterase TRACE H Urine WBC (Auto) 20 Urine RBC (Auto) 8 12/20/19 12/20/19 02:10 02:10 WBC 13.9 H RBC 3.64 L Hgb 10.8 L Hct 33.4 L MCV 92 MCH 29.7 MCHC 32.4 RDW 16.9 H Plt Count 239 Seg Neutrophils % Sodium 134.4 L Potassium 4.8 Chloride 106 Carbon Dioxide 23 Anion Gap 5 BUN 25 H Creatinine 1.06 Est GFR ( Amer) > 60 Est GFR (Non-Af Amer) Glucose 88 Lactic Acid Calcium 8.0 L Total Bilirubin AST Alkaline Phosphatase C-Reactive Protein Total Protein Albumin Lipase Urine Color Urine Appearance Urine pH Ur Specific [place] Urine Protein Urine Glucose (UA) Urine Ketones Urine Blood Urine Nitrite Ur Leukocyte Esterase Urine WBC (Auto) Urine RBC (Auto) 12/19/19 09:04 Troponin I 0.037 Impressions: Chest X-Ray 12/19/19 09:54 IMPRESSION: LIMITED STUDY. SUSPECT LEFT LOWER LOBE PNEUMONIA. Abdomen/Pelvis CT 12/19/19 11:25 IMPRESSION: New opacity at the left lung base most consistent with pneumonia. No acute intra-abdominal process. There is a 4 cm infrarenal abdominal aortic aneurysm which is stable. Feldman catheter in the bladder without decompression of the bladder. Assessment and Plan - Diagnosis (1) Atrial fibrillation with rapid ventricular response Is this a current diagnosis for this admission?: Yes Plan: Patient also went into A. fib with RVR last night and was started on Cardizem drip. He also did get some improvement with IV Lopressor. His Eliquis was placed on hold and he is on heparin drip in case he needs debridement or intervention for his ulcer. He was maxed on Cardizem drip last night but is currently now down to 10. Will increase p.o. Lopressor and will try to wean off Cardizem today. (2) Pneumonia Is this a current diagnosis for this admission?: Yes Plan: Will treat as HCAP as he did have recent hospitalization. Continue cefepime and vancomycin. (3) UTI (urinary tract infection) Is this a current diagnosis for this admission?: Yes Plan: On IV antibiotics. (4) Decubitus ulcer of right hip Is this a current diagnosis for this admission?: Yes Plan: Await further recs from surgery. (5) HTN (hypertension) Is this a current diagnosis for this admission?: Yes - Time Time Spent with patient: 25-34 minutes
[2019-12-20] MEDS: METOPROLOL TARTRATE 50 MG TABLET PO SCH ×2 (12:30→21:17)
[2019-12-20 17:42] LABS: APPEARANCE,URINE CLOUDY; BILIRUBIN,URINE NEGATIVE (NEGATIVE); COLOR,URINE YELLOW; GLUCOSE, URINE NEGATIVE (NEGATIVE); KETONES,URINE TRACE mg/dL (NEGATIVE); LEUKOCYTE ESTERASE,URINE LARGE (NEGATIVE); NITRITE,URINE NEGATIVE (NEGATIVE); PROTEIN,URINE 30 mg/dL (NEGATIVE); URINE SPECIFIC GRAVITY 1.029; UROBILINOGEN,URINE NEGATIVE mg/dL (<2.0)
--- NOTE | 2019-12-20 18:28 | PDOC CONSULTATION ---
Consultation Consult Date: 12/20/19 Provider Consulted: MARK BRADLEY Consult reason:: Purulent drainage from right trochanteric pressure sore History of Present Illness Admission Date/PCP: 12/19/19 17:12 MATHEUS EVANS MD History of Present Illness: NELI WIGGINS is a 74 year old male, past medical history of atrial fibrillation on Eliquis, hypertension, Parkinson's disease, dementia, prior CVA, history of abdominal aortic aneurysm and chronic right hip ulcer which was brought into the ER from primary due to fever. Patient was found to have left lower lobe pneumonia, UTI and foul-smelling draining right hip ulcer. The surgical service has been consulted because of the right trochanteric foul draining pressure sore. Past Medical History Cardiac Medical History: Reports: Hypertension Denies: Myocardial Infarction Pulmonary Medical History: Denies: Asthma, Bronchitis, Chronic Obstructive Pulmonary Disease (COPD), Pneumonia Neurological Medical History: Denies: Seizures GI Medical History: Reports: Gastroesophageal Reflux Disease Denies: Hepatitis, Hiatal Hernia Musculoskeltal Medical History: Reports: Arthritis, Gout Psychiatric Medical History: Reports: Dementia Hematology: Denies: Anemia, Sickle Cell Disease Past Surgical History Past Surgical History: Reports: Orthopedic Surgery - Right hip, Vascular Surgery - Left carotid endarterectomy Denies: Pacemaker Social History Smoking Status: Former Smoker Frequency of Alcohol Use: None Hx Recreational Drug Use: No Drugs: None Hx Prescription Drug Abuse: No - Advance Directive Resuscitation Status: Full Code Family History Family History: Hypertension Parental Family History Reviewed: No Children Family History Reviewed: No Sibling(s) Family History Reviewed.: Yes Medication/Allergy Home Medications: Amlodipine Besylate [Norvasc 10 mg Tablet] 10 mg PO QAM 08/17/19 Apixaban [Eliquis 5 mg Tablet] 5 mg PO BID 08/17/19 Atorvastatin Calcium [Lipitor 80 mg Tablet] 80 mg PO QHS 08/17/19 Carbidopa/Levodopa [Sinemet 25-250 mg Tablet] 1 each PO Q12 08/17/19 Colchicine [Colcrys 0.6 mg Tablet] 0.6 mg PO QAM 08/17/19 Fesoterodine Fumarate [Toviaz] 4 mg PO QAM 08/17/19 Finasteride [Proscar] 5 mg PO QAM 08/17/19 Metoprolol Succinate [Toprol Xl 25 mg Tab.sr] 25 mg PO QAM 08/17/19 Ondansetron HCl [Zofran 4 mg Tablet] 4 mg PO Q8HP PRN 08/17/19 Tamsulosin HCl [Flomax] 0.4 mg PO BID 08/17/19 Tramadol HCl [Ultram] 50 mg PO Q6HP PRN 08/17/19 Acetaminophen [Tylenol 325 mg Tablet] 650 mg PO Q4HP PRN 10/11/19 Mirtazapine 15 mg PO QHS 10/11/19 Allopurinol [Zyloprim 100 mg Tablet] 100 mg PO DAILY 12/20/19 Amino Acids/Protein Hydrolys [Pro-Stat Awc Liquid Packet] 1 pkt PO DAILY MDD STOP 01/20/20 12/20/19 Ascorbic Acid [Vitamin C 500 mg Tablet] 500 mg PO DAILY 12/20/19 Esomeprazole Magnesium [Nexium] 20 mg PO DAILY 12/20/19 Multivitamin with Minerals [One Daily Plus Minerals] 1 each PO DAILY 12/20/19 Allergies/Adverse Reactions: No Known Allergies Allergy (Verified 12/19/19 09:11) Physical Exam Vital Signs: Temp Pulse Resp BP Pulse Ox 97.7 F 70 15 144/66 H 98 12/20/19 15:40 12/20/19 15:40 12/20/19 15:40 12/20/19 15:40 12/20/19 15:40 Intake & Output 12/19/19 12/20/19 12/21/19 06:59 06:59 06:59 Intake Total 1168 360 Output Total 1260 200 Balance -92 160 Weight 59.4 kg Results Laboratory Results: 12/20/19 02:10 12/20/19 02:10 12/20/19 12/20/19 12/20/19 02:10 02:10 17:15 WBC 13.9 H RBC 3.64 L Hgb 10.8 L Hct 33.4 L MCV 92 MCH 29.7 MCHC 32.4 RDW 16.9 H Plt Count 239 Sodium 134.4 L Potassium 4.8 Chloride 106 Carbon Dioxide 23 Anion Gap 5 BUN 25 H Creatinine 1.06 Est GFR ( Amer) > 60 Glucose 88 Calcium 8.0 L Urine Color YELLOW Urine Appearance CLOUDY Urine pH 5.0 Ur Specific [place] 1.029 Urine Protein 30 H Urine Glucose (UA) NEGATIVE Urine Ketones TRACE H Urine Blood SMALL H Urine Nitrite NEGATIVE Ur Leukocyte Esterase LARGE H Urine WBC (Auto) >182 Urine RBC (Auto) 15 12/19/19 09:04 Troponin I 0.037 Impressions: Chest X-Ray 12/19/19 09:54 IMPRESSION: LIMITED STUDY. SUSPECT LEFT LOWER LOBE PNEUMONIA. Abdomen/Pelvis CT 12/19/19 11:25 IMPRESSION: New opacity at the left lung base most consistent with pneumonia. No acute intra-abdominal process. There is a 4 cm infrarenal abdominal aortic aneurysm which is stable. Feldman catheter in the bladder without decompression of the bladder. Assessment & Plan - Diagnosis (1) Decubitus ulcer of right hip Qualifiers: Pressure injury stage: stage 3 Qualified Code(s): L89.213 - Pressure ulcer of right hip, stage 3 Is this a current diagnosis for this admission?: Yes - Plan Summary Plan Summary: Assessment: Foul-smelling and draining right trochanteric pressure sore grade 3 Patient currently on IV heparin for his atrial fibrillation Plan: Full-thickness debridement of right trochanteric pressure sore tomorrow: Procedure, risks, benefits, complications, explained to the patient, he understands all the above, his questions were answered, he decides to proceed N.p.o. after midnight Hold heparin 3 hours prior to surgery time tomorrow
[2019-12-20] MEDS ORDERED: GLUCAGON,HUMAN RECOMB 1 MG INJ SUBCUT PRN (18:29)
[2019-12-20] MEDS ORDERED: DEXTROSE 50%-WATER 25 GM/50 ML DISP.SYRIN IV PRN ×2 (18:29)
[2019-12-20] MEDS ORDERED: DEXTROSE 40% GEL 15 GM TUBE PO PRN ×2 (18:29)
[2019-12-21] MEDS: NORMAL SALINE 1000 ML 1,000 ML IV PRN (00:02)
[2019-12-21] MEDS: MORPHINE SULFATE 10 MG/ML INJ IV PRN ×2 (03:09→15:04)
[2019-12-21] MEDS: CEFEPIME 1 GM/D5W RTU 1 GM/50 ML RTUPB IV SCH ×2 (05:16→17:20)
[2019-12-21] MEDS: VANCOMYCIN HCL 1,000 MG in DEXTROSE 5%-WATER 250 ML IV SCH (09:12)
[2019-12-21] MEDS: METOPROLOL TARTRATE 50 MG TABLET PO SCH ×2 (09:16→21:22)
[2019-12-21] MEDS ORDERED: MIDAZOLAM 2 MG/2 ML INJ ONE (09:54)
[2019-12-21] MEDS ORDERED: PROPOFOL INJ 200 MG/20 ML VIAL IV ONE (09:54)
[2019-12-21] MEDS ORDERED: ONDANSETRON HCL INJ/PF 4 MG/2 ML SDV ONE (09:54)
[2019-12-21] MEDS ORDERED: DEXAMETHASONE SOD PHOSPHATE INJ 4 MG/1 ML VIAL ONE (09:54)
[2019-12-21] MEDS ORDERED: LIDOCAINE 2% INJ-PF (100 MG/5 ML) SYRINGE ONE (09:54)
[2019-12-21] MEDS ORDERED: FENTANYL CITRATE INJ/PF 100 MCG/2 ML AMPUL ONE (09:54)
[2019-12-21] MEDS ORDERED: LIDOCAINE 1%/EPINEPHRINE INJ 20 ML VIAL ONE (10:03)
[2019-12-21] MEDS: MIRTAZAPINE 15 MG TABLET PO SCH (10:18)
[2019-12-21] MEDS: CARBIDOPA/LEVODOPA 25-250 MG TABLET PO SCH ×2 (10:18→22:46)
[2019-12-21] MEDS ORDERED: METHYLENE BLUE 50 MG/10 ML AMPULE ONE (10:45)
[2019-12-21] MEDS ORDERED: PROMETHAZINE HCL INJ 25 MG/1 ML VIAL IV PRN ×2 (10:52)
[2019-12-21] MEDS ORDERED: DIPHENHYDRAMINE HCL 50 MG/ML VIAL IV PRN (10:52)
[2019-12-21] MEDS ORDERED: MEPERIDINE HCL/PF INJ 25 MG/1 ML DISP.SYRIN IV PRN (10:52)
[2019-12-21] MEDS ORDERED: FENTANYL CITRATE INJ/PF 100 MCG/2 ML AMPUL IV PRN ×3 (10:52)
[2019-12-21] MEDS ORDERED: OXYCODONE-ACETAMINOPHEN 5-325 MG TABLET PO PRN ×2 (10:52)
[2019-12-21] MEDS ORDERED: MORPHINE SULFATE 10 MG/ML INJ IV PRN (10:52)
--- NOTE | 2019-12-21 11:57 | Operative Report ---
Nonrecallable Operative Report DATE OF SURGERY: 12/21/19 PREOPERATIVE DIAGNOSIS: Right trochanteric pressure sore grade 3 POSTOPERATIVE DIAGNOSIS: Same OPERATION: Full-thickness debridement of right trochanteric pressure sore grade 3 SURGEON: MARK BRADLEY ANESTHESIA: Other - 20 mL of 1% lidocaine with epinephrine TISSUE REMOVED OR ALTERED: Skin and subcutaneous tissue COMPLICATIONS: None ESTIMATED BLOOD LOSS: 20 mL INTRAOPERATIVE FINDINGS: Large subcutaneous cavity with bursa and purulent content extending circumferentially the or regional right trochanteric skin defect PROCEDURE: The procedure was done in the operating room, the patient was placed in a supine position, the area of the pressure sore was prepped and draped in usual fashion. The subcutaneous cavity of the trochanteric pressure sore was stained with methylene blue and the proposed line of incision was outlined with a surgical marker, a skin incision was then made with a #15 blade, and a moderate amount of pus was obtained following removal of the skin. This was sent for aerobic anaerobic culture and Gram stain. The dissection was then extended further by removing all the subcutaneous bursa of the pressure sore which was previously stained with methylene blue. After this, a finger was inserted inside the wound and the internal septations were disrupted so to make one single cavity. Following this, the facial floor cavity was irrigated with jet lavage. Local bleeders were cauterized. The pressure sore cavity was packed with 2 large pieces of white wound VAC sponge followed by 1 smaller piece of reyna sponge on top of it, covered with a clear dressing with the suction cup connected to the w ound VAC device. Good negative pressure was obtained. The patient tolerated procedure well and transferred to the recovery room in satisfactory conditions.
--- NOTE | 2019-12-21 13:54 | PDOC PROGRESS REPORT ---
Subjective Progress Note for:: 12/21/19 Subjective:: No adverse events overnight. Still complaining of discomfort in his right hip. Vital signs been stable. He is still confused, possibly chronically so. He thought he was in [place]. He is awaiting a trip to the OR for debridement of the right hip. Reason For Visit: INFECTED RIGHT HIP ULCER,UTI Physical Exam Vital Signs: Temp Pulse Resp BP Pulse Ox 97.9 F 69 18 136/57 H 96 12/21/19 12:10 12/21/19 12:10 12/21/19 12:10 12/21/19 12:10 12/21/19 12:10 Intake & Output 12/20/19 12/21/19 12/22/19 06:59 06:59 06:59 Intake Total 1168 770 723 Output Total 1260 1100 520 Balance -92 -330 203 Weight 59.4 kg 62.9 kg General appearance: PRESENT: no acute distress, cooperative, disheveled, thin Respiratory exam: PRESENT: clear to auscultation haider, symmetrical, unlabored. ABSENT: accessory muscle use, chest wall tenderness, crackles, prolonged expiratory phas, rales, retraction, rhonchi, tachypnea, wheezes Cardiovascular exam: PRESENT: irregular rhythm, other - Normal rate Pulses: PRESENT: normal carotid pulses Vascular exam: PRESENT: normal capillary refill GI/Abdominal exam: PRESENT: normal bowel sounds, soft. ABSENT: distended, guarding, rebound, tenderness Extremities exam: ABSENT: clubbing, pedal edema Musculoskeletal exam: ABSENT: deformity Neurological exam: PRESENT: alert, awake, oriented to person. ABSENT: oriented to place Psychiatric exam: PRESENT: flat affect Skin exam: PRESENT: other - There is a lesion in the right hip, a wound is about 3 cm in dimension that tunnels, with some drainage as well as some devitalized tissue surrounding erythema. There is also a smaller stage II ulcer immediately posterior to the main tunneling ulcer Results Laboratory Results: 12/20/19 02:10 12/20/19 02:10 12/20/19 17:15 Urine Color YELLOW Urine Appearance CLOUDY Urine pH 5.0 Ur Specific [place] 1.029 Urine Protein 30 H Urine Glucose (UA) NEGATIVE Urine Ketones TRACE H Urine Blood SMALL H Urine Nitrite NEGATIVE Ur Leukocyte Esterase LARGE H Urine WBC (Auto) >182 Urine RBC (Auto) 15 12/19/19 17:25 Blood Blood Culture (PCR) - Final Staphylococcus Species 12/19/19 09:04 Troponin I 0.037 Impressions: Chest X-Ray 12/19/19 09:54 IMPRESSION: LIMITED STUDY. SUSPECT LEFT LOWER LOBE PNEUMONIA. Abdomen/Pelvis CT 12/19/19 11:25 IMPRESSION: New opacity at the left lung base most consistent with pneumonia. No acute intra-abdominal process. There is a 4 cm infrarenal abdominal aortic aneurysm which is stable. Feldman catheter in the bladder without decompression of the bladder. Assessment and Plan - Diagnosis (1) Atrial fibrillation Qualifiers: Atrial fibrillation type: unspecified chronic Qualified Code(s): I48.20 - Chronic atrial fibrillation, unspecified; I48.2 - Chronic atrial fibrillation Is this a current diagnosis for this admission?: Yes Plan: Currently rate controlled on his usual medications (2) Decubitus ulcer of right hip Qualifiers: Pressure injury stage: stage 3 Qualified Code(s): L89.213 - Pressure ulcer of right hip, stage 3 Is this a current diagnosis for this admission?: Yes Plan: Cultures pending, continue current antibiotics, OR for debridement today (3) AAA (abdominal aortic aneurysm) without rupture Is this a current diagnosis for this admission?: Yes Plan: Continue routine surveillance program as an outpatient, watch blood pressure for good control (4) HTN (hypertension) Qualifiers: Hypertension type: essential hypertension Qualified Code(s): I10 - Essential (primary) hypertension Is this a current diagnosis for this admission?: Yes Plan: Currently well controlled on current regimen - Time Time Spent with patient: 15-24 minutes
[2019-12-21] MEDS: HEPARIN SODIUM,PORCINE/D5W 25,000 UNIT/250 ML RTUINJ IV PRN (17:13)
[2019-12-22] MEDS: CEFEPIME 1 GM/D5W RTU 1 GM/50 ML RTUPB IV SCH ×2 (05:31→18:27)
[2019-12-22 06:06] LABS: APPEARANCE,URINE SLIGHTLY-CLOUDY; BILIRUBIN,URINE NEGATIVE (NEGATIVE); COLOR,URINE YELLOW; GLUCOSE, URINE NEGATIVE (NEGATIVE); KETONES,URINE NEGATIVE (NEGATIVE); LEUKOCYTE ESTERASE,URINE SMALL (NEGATIVE); NITRITE,URINE NEGATIVE (NEGATIVE); PROTEIN,URINE NEGATIVE (NEGATIVE); URINE SPECIFIC GRAVITY 1.013; UROBILINOGEN,URINE NEGATIVE mg/dL (<2.0)
[2019-12-22 07:03] LABS: HEMATOCRIT 31.8 % (37.9-51.0); HEMOGLOBIN 10.5 g/dL (13.5-17.0); MEAN CORPUSCULAR HEMOGLOBIN 29.9 pg (27.0-33.4); MEAN CORPUSCULAR VOLUME 91 fl (80-97); PLATELET COUNT 296 10^3/uL (150-450); RED BLOOD COUNT 3.51 10^6/uL (4.35-5.55); RED CELL DISTRIBUTION WIDTH 16.7 % (11.5-14.0); WHITE BLOOD COUNT 9.5 10^3/uL (4.0-10.5)
[2019-12-22] MEDS: MORPHINE SULFATE 10 MG/ML INJ IV PRN (07:31)
--- NOTE | 2019-12-22 09:09 | PDOC PROGRESS REPORT ---
Subjective Progress Note for:: 12/22/19 Subjective:: This is a 74-year-old male who is bedridden. This morning, he does not respond verbally to questions. He does grimace and wince to pain. He does nod his head. He reports pain at the right hip surgical site. Other review of systems is unobtainable. Reason For Visit: INFECTED RIGHT HIP ULCER,UTI Physical Exam Vital Signs: Temp Pulse Resp BP Pulse Ox 97.8 F 80 18 123/74 100 12/22/19 03:24 12/22/19 07:00 12/22/19 03:24 12/22/19 03:24 12/22/19 03:24 Intake & Output 12/21/19 12/22/19 12/23/19 06:59 06:59 06:59 Intake Total 770 1414 Output Total 1100 1495 Balance -330 -81 Weight 62.9 kg 66.4 kg General appearance: PRESENT: no acute distress Head exam: PRESENT: atraumatic, normocephalic Neck exam: ABSENT: tenderness, thyromegaly, tracheal deviation, tracheostomy Respiratory exam: PRESENT: unlabored. ABSENT: chest wall tenderness, wheezes GI/Abdominal exam: PRESENT: soft. ABSENT: distended, firm, guarding Rectal exam: PRESENT: deferred Extremities exam: PRESENT: other - Lower extremity contractures. Neurological exam: PRESENT: awake, other - Nonverbal with me this morning. Psychiatric exam: ABSENT: agitated Skin exam: PRESENT: other - Right hip wound with wound VAC in place. There is no obvious erythema or induration of the surrounding tissues. Results Laboratory Results: 12/22/19 06:16 12/20/19 02:10 12/22/19 12/22/19 05:20 06:16 WBC 9.5 RBC 3.51 L Hgb 10.5 L Hct 31.8 L MCV 91 MCH 29.9 MCHC 33.0 RDW 16.7 H Plt Count 296 Urine Color YELLOW Urine Appearance SLIGHTLY-CLOUDY Urine pH 6.0 Ur Specific [place] 1.013 Urine Protein NEGATIVE Urine Glucose (UA) NEGATIVE Urine Ketones NEGATIVE Urine Blood NEGATIVE Urine Nitrite NEGATIVE Ur Leukocyte Esterase SMALL H Urine WBC (Auto) 12 Urine RBC (Auto) 2 12/19/19 17:25 Blood Blood Culture (PCR) - Final Staphylococcus Species 12/19/19 09:04 Troponin I 0.037 Impressions: Chest X-Ray 12/19/19 09:54 IMPRESSION: LIMITED STUDY. SUSPECT LEFT LOWER LOBE PNEUMONIA. Abdomen/Pelvis CT 12/19/19 11:25 IMPRESSION: New opacity at the left lung base most consistent with pneumonia. No acute intra-abdominal process. There is a 4 cm infrarenal abdominal aortic aneurysm which is stable. Feldman catheter in the bladder without decompression of the bladder. Assessment & Plan - Diagnosis (1) Decubitus ulcer of right hip Qualifiers: Pressure injury stage: stage 3 Qualified Code(s): L89.213 - Pressure ulcer of right hip, stage 3 Is this a current diagnosis for this admission?: Yes - Time Time Spent with patient: Less than 15 minutes - Plan Summary Plan Summary: This is a 74-year-old male with a decubitus ulcer of the right hip, status post debridement yesterday. The patient has a wound VAC in place. I would continue with wound VAC therapy. Change wound VAC every 3 days. Initiate an aggressive turning regimen. The patient should be started on nutritional supplementation, especially protein. Surgery will sign off at this time. Please renotify with any questions or concerns.
[2019-12-22] MEDS: METOPROLOL TARTRATE 50 MG TABLET PO SCH ×2 (09:13→21:57)
[2019-12-22] MEDS: CARBIDOPA/LEVODOPA 25-250 MG TABLET PO SCH ×2 (09:14→21:57)
[2019-12-22] MEDS: MIRTAZAPINE 15 MG TABLET PO SCH (09:14)
[2019-12-22] MEDS: VANCOMYCIN HCL 1,000 MG in DEXTROSE 5%-WATER 250 ML IV SCH (09:15)
--- NOTE | 2019-12-22 12:07 | CDI QUERY ---
CDI Query CDI Review: Dear Provider: To better reflect your patients severity of illness, morbidity, and resource utilization Please specify and document in the Progress Notes and Discharge Summary if you are monitoring / treating / evaluating any of the following conditions: Query Clinical indicators Please document the significance (if any) of the positive blood cultures: Staphylococcus Bacteremia Bacteremia No bacteremia Unable to determine Other Please clarify and document if the UTI can be further specified: Gram negative UTI Unable to determine Other Please clarify and document if the Pneumonia can be further specified: Aspiration pneumonia Gram negative pneumonia Gram positive pneumonia Unable to determine Other Please document if PRESENT ON ADMISSION. Per H&P: Patient reportedly had a fever of 102F at the long-term. In the ER, work-up was remarkable for leukocytosis, new left lower lobe pneumonia and a fall smelling draining right hip ulcer. Radiology: Chest x-ray 12/19 Suspect left lower lobe pneumonia Abdomen/Pelvis CT 12/19/19 11:25 IMPRESSION: New opacity at the left lung base most consistent with pneumonia. Labs: WBC 12.0 H/H 10.6 / 32.2 Total Protein 6.2 Albumin 2.4 Blood Culture (PCR) Final: Staphylococcus Species / Gram + Cocci Clusters Right Hip Culture Preliminary: Gram Negative Rods Gram + Cocci in Chains Urine Culture Preliminary: Gram Negative Rods Antibiotics: IV Cefepime, Vancocycin determine the exact nature of a condition. Thank you, Clinical Documentation Physician Advisors TASHI Gasca RN, BSN RN Office [phone] Office [phone]
--- NOTE | 2019-12-22 15:31 | PDOC PROGRESS REPORT ---
Subjective Progress Note for:: 12/22/19 Subjective:: No adverse events overnight. He had a wound VAC placed yesterday on the right hip. His appetite has not been very good. Reason For Visit: INFECTED RIGHT HIP ULCER,UTI Physical Exam Vital Signs: Temp Pulse Resp BP Pulse Ox 97.7 F 73 16 149/54 H 100 12/22/19 11:48 12/22/19 14:00 12/22/19 11:48 12/22/19 11:48 12/22/19 11:48 Intake & Output 12/21/19 12/22/19 12/23/19 06:59 06:59 06:59 Intake Total 770 1414 250 Output Total 1100 1495 Balance -330 -81 250 Weight 62.9 kg 66.4 kg General appearance: PRESENT: no acute distress, cooperative, disheveled, thin Respiratory exam: PRESENT: clear to auscultation haider, symmetrical, unlabored. ABSENT: accessory muscle use, chest wall tenderness, crackles, prolonged expiratory phas, rales, retraction, rhonchi, tachypnea, wheezes Cardiovascular exam: PRESENT: irregular rhythm, other - Normal rate Pulses: PRESENT: normal carotid pulses Vascular exam: PRESENT: normal capillary refill GI/Abdominal exam: PRESENT: normal bowel sounds, soft. ABSENT: distended, guarding, rebound, tenderness Extremities exam: ABSENT: clubbing, pedal edema Musculoskeletal exam: ABSENT: deformity Neurological exam: PRESENT: alert, awake, oriented to person. ABSENT: oriented to place Psychiatric exam: PRESENT: flat affect Skin exam: PRESENT: other - There is a lesion in the right hip, wound VAC is in place Results Laboratory Results: 12/22/19 06:16 12/20/19 02:10 12/22/19 12/22/19 05:20 06:16 WBC 9.5 RBC 3.51 L Hgb 10.5 L Hct 31.8 L MCV 91 MCH 29.9 MCHC 33.0 RDW 16.7 H Plt Count 296 Urine Color YELLOW Urine Appearance SLIGHTLY-CLOUDY Urine pH 6.0 Ur Specific [place] 1.013 Urine Protein NEGATIVE Urine Glucose (UA) NEGATIVE Urine Ketones NEGATIVE Urine Blood NEGATIVE Urine Nitrite NEGATIVE Ur Leukocyte Esterase SMALL H Urine WBC (Auto) 12 Urine RBC (Auto) 2 12/19/19 17:25 Blood Blood Culture (PCR) - Final Staphylococcus Species 12/19/19 09:04 Troponin I 0.037 Impressions: Chest X-Ray 12/19/19 09:54 IMPRESSION: LIMITED STUDY. SUSPECT LEFT LOWER LOBE PNEUMONIA. Abdomen/Pelvis CT 12/19/19 11:25 IMPRESSION: New opacity at the left lung base most consistent with pneumonia. No acute intra-abdominal process. There is a 4 cm infrarenal abdominal aortic aneurysm which is stable. Feldman catheter in the bladder without decompression of the bladder. Assessment and Plan - Diagnosis (1) Atrial fibrillation Qualifiers: Atrial fibrillation type: unspecified chronic Qualified Code(s): I48.20 - Chronic atrial fibrillation, unspecified; I48.2 - Chronic atrial fibrillation Is this a current diagnosis for this admission?: Yes Plan: Currently rate controlled on his usual medications (2) Decubitus ulcer of right hip Qualifiers: Pressure injury stage: stage 3 Qualified Code(s): L89.213 - Pressure ulcer of right hip, stage 3 Is this a current diagnosis for this admission?: Yes Plan: He had a debridement with a wound VAC placement. On empiric antibiotics, cultures are pending from the recent debridement. (3) AAA (abdominal aortic aneurysm) without rupture Is this a current diagnosis for this admission?: Yes Plan: Continue routine surveillance program as an outpatient, watch blood pressure for good control (4) HTN (hypertension) Qualifiers: Hypertension type: essential hypertension Qualified Code(s): I10 - Ess ential (primary) hypertension Is this a current diagnosis for this admission?: Yes Plan: Currently well controlled on current regimen (5) Bacteremia due to coagulase-negative Staphylococcus Is this a current diagnosis for this admission?: Yes Plan: Contaminant - Time Time Spent with patient: 15-24 minutes
--- NOTE | 2019-12-22 17:29 | XCELERA REPORT ---
[address] [address] Transthoracic Echocardiogram Report Name: NELI WIGGINS Age: 74 yrs Gender: Male : 1945 Patient Status: Inpatient Patient Location: [address] [place] [address] Study Date: 12/21/2019 02:25 PM Height: 70 in Weight: 130 lb BSA: 1.7 m2 Procedure: A complete two-dimensional transthoracic echocardiogram was performed (2D, M-mode, spectral and color flow Doppler). The study was technically difficult with many images being suboptimal in quality. Reason For Study: ezekiel GALLEGOS Ordering Physician: LV LAUREANO Performed By: Zoey Mary Interpretation Summary LV EF is 50% Left ventricular systolic function is borderline reduced. Doppler measurements suggest pseudonormalized left ventricular relaxation, which is associated with grade II/IV or mild to moderate diastolic dysfunction Regional wall motion abnormalities cannot be excluded due to limited visualization. There is mild concentric left ventricular hypertrophy. The left ventricle is grossly normal size. The right ventricular systolic function is normal. The left atrium is mildly dilated. The right atrium is normal in size There is a trace to mild amount of mitral regurgitation There is no mitral valve stenosis. No aortic regurgitation is present. There is no aortic valve stenosis There is a trace or physiologic amount of tricuspid regurgitation Tricuspid regurgitation jet envelope not well defined to measure RV systolic pressure accurately. The pulmonic valve is not well visualized. The aortic root is not well visualized. The inferior vena cava was not visualized There is no pericardial effusion. The study was technically difficult with many images being suboptimal in quality. MMode/2D Measurements & Calculations RVDd: 2.5 cm LVIDd: 5.1 cm FS: 30.4 % Ao root diam: 3.1 cm IVSd: 0.94 cm LVIDs: 3.6 cm EDV(Teich): 126.5 ml Ao root area: 7.8 cm2 LVPWd: 1.1 cm ESV(Teich): 53.9 ml LA dimension: 3.5 cm EF(Teich): 57.4 % Doppler Measurements & Calculations MV E max kaye: MV P1/2t max kaye: Ao V2 max: LV V1 max P.7 cm/sec 63.6 cm/sec 139.6 cm/sec 2.4 mmHg MV A max kaye: MV P1/2t: 71.6 msec Ao max PG: LV V1 max: 79.5 cm/sec MVA(P1/2t): 3.1 cm2 7.8 mmHg 78.0 cm/sec MV E/A: 0.80 MV dec slope: 260.3 cm/sec2 MV dec time: 0.24 sec PA V2 max: MV P1/2t-pr_phl: 97.2 cm/sec 71.6 msec PA max P.9 mmHg Left Ventricle The left ventricle is grossly normal size. There is mild concentric left ventricular hypertrophy. Left ventricular systolic function is borderline reduced. LV EF is 50%. Doppler measurements suggest pseudonormalized left ventricular relaxation, which is associated with grade II/IV or mild to moderate diastolic dysfunction. Regional wall motion abnormalities cannot be excluded due to limited visualization. Right Ventricle The right ventricle is grossly normal size. There is normal right ventricular wall thickness. The right ventricular systolic function is normal. Atria The right atrium is normal in size. The left atrium is mildly dilated. Interarterial septum not well visualized and not well dopplered. Cannot comment on ASD/PFO presence. Mitral Valve The mitral valve is grossly normal. There is no mitral valve stenosis. There is a trace to mild amount of mitral regurgitation. Aortic Valve The aortic valve is not well visualized secondary to technical limitations. There is no aortic valve stenosis. No aortic regurgitation is present. Tricuspid Valve The tricuspid valve is not well visualized secondary to technical limitations. There is no tricuspid stenosis. There is a trace or physiologic amount of tricuspid regurgitation. Tricuspid regurgitation jet envelope not well defined to measure RV systolic pressure accurately. Pulmonic Valve The pulmonic valve is not well visualized. Great Vessels The aortic root is not well visualized. The inferior vena cava was not visualized. Effusions There is no pericardial effusion. : LV LAUREANO Shyamal
[2019-12-22] MEDS: HEPARIN SODIUM,PORCINE/D5W 25,000 UNIT/250 ML RTUINJ IV PRN (21:59)
[2019-12-23] MEDS: CEFEPIME 1 GM/D5W RTU 1 GM/50 ML RTUPB IV SCH (06:07)
[2019-12-23] MEDS: MIRTAZAPINE 15 MG TABLET PO SCH (09:47)
[2019-12-23] MEDS: METOPROLOL TARTRATE 50 MG TABLET PO SCH ×2 (09:48→22:10)
[2019-12-23] MEDS: CARBIDOPA/LEVODOPA 25-250 MG TABLET PO SCH ×2 (09:48→22:09)
[2019-12-23] MEDS: AMPICILLIN SODIUM 1 GM in NORMAL SALINE 50 ML IV SCH ×2 (12:05→17:42)
--- NOTE | 2019-12-23 16:42 | PDOC PROGRESS REPORT ---
Subjective Progress Note for:: 12/23/19 Subjective:: No adverse events overnight. No new complaints. Vital signs been stable. Oral intake is still poor, but it has improved a little bit today. He had a little bit more of his breakfast and he has been at previous meals. He was getting Remeron in the morning and I have switched that to bedtime so he will be a little bit more awake during the day. Reason For Visit: INFECTED RIGHT HIP ULCER,UTI Physical Exam Vital Signs: Temp Pulse Resp BP Pulse Ox 98.0 F 70 17 105/82 94 12/23/19 12:00 12/23/19 14:00 12/23/19 12:00 12/23/19 12:00 12/23/19 12:00 Intake & Output 12/22/19 12/23/19 12/24/19 06:59 06:59 06:59 Intake Total 1414 494 220 Output Total 1495 750 Balance -81 -256 220 Weight 66.4 kg 65 kg General appearance: PRESENT: no acute distress, cooperative, disheveled, thin Respiratory exam: PRESENT: clear to auscultation haider, symmetrical, unlabored. ABSENT: accessory muscle use, chest wall tenderness, crackles, prolonged expiratory phas, rales, retraction, rhonchi, tachypnea, wheezes Cardiovascular exam: PRESENT: irregular rhythm, other - Normal rate Pulses: PRESENT: normal carotid pulses Vascular exam: PRESENT: normal capillary refill GI/Abdominal exam: PRESENT: normal bowel sounds, soft. ABSENT: distended, guarding, rebound, tenderness Extremities exam: ABSENT: clubbing, pedal edema Musculoskeletal exam: ABSENT: deformity Neurological exam: PRESENT: alert, awake, oriented to person. ABSENT: oriented to place Psychiatric exam: PRESENT: flat affect Skin exam: PRESENT: other - There is a lesion in the right hip, wound VAC is in plac Results Laboratory Results: 12/22/19 06:16 12/20/19 02:10 12/19/19 11:45 Hip - Right Gram Stain - Final 12/19/19 11:45 Hip - Right Wound Culture - Final Proteus Mirabilis Enterococcus Faecalis(Group D) Mrsa (Meth Resis Staph Aureus) Pseudomonas Aeruginosa 12/19/19 17:25 Blood Blood Culture (PCR) - Final Staphylococcus Species 12/19/19 17:25 Blood Blood Culture - Final Staphylococcus Capitis 12/19/19 12:06 Catheterized Urine Urine Culture - Final Proteus Mirabilis Pseudomonas Aeruginosa 12/19/19 09:04 Troponin I 0.037 Impressions: Chest X-Ray 12/19/19 09:54 IMPRESSION: LIMITED STUDY. SUSPECT LEFT LOWER LOBE PNEUMONIA. Abdomen/Pelvis CT 12/19/19 11:25 IMPRESSION: New opacity at the left lung base most consistent with pneumonia. No acute intra-abdominal process. There is a 4 cm infrarenal abdominal aortic aneurysm which is stable. Feldman catheter in the bladder without decompression of the bladder. Assessment and Plan - Diagnosis (1) Atrial fibrillation Qualifiers: Atrial fibrillation type: unspecified chronic Qualified Code(s): I48.20 - Chronic atrial fibrillation, unspecified; I48.2 - Chronic atrial fibrillation Is this a current diagnosis for this admission?: Yes Plan: Currently rate controlled on his usual medications (2) Decubitus ulcer of right hip Qualifiers: Pressure injury stage: stage 3 Qualified Code(s): L89.213 - Pressure ulcer of right hip, stage 3 Is this a current diagnosis for this admission?: Yes Plan: He had a debridement with a wound VAC placement. I switched his antibiotics to ampicillin today. He should be able to take oral amoxicillin when he is discharged. We are waiting the wound VAC that he will be using when he leaves the hospital, and once that is placed he can go back to [facility]. (3) AAA (abdominal aortic aneurysm) without rupture Is this a current diagnosis for this admission?: Yes Plan: Continue routine surveillance program as an outpatient, watch blood pressure for good control (4) HTN (hypertension) Qualifiers: Hypertension type: essential hypertension Qualified Code(s): I10 - Essential (primary) hypertension Is this a current diagnosis for this admission?: Yes Plan: Currently well controlled on current regimen (5) Bacteremia due to coagulase-negative Staphylococcus Is this a current diagnosis for this admission?: Yes Plan: Contaminant - Time Time Spent with patient: 15-24 minutes
[2019-12-23] MEDS: APIXABAN 5 MG TABLET PO SCH (17:41)
[2019-12-23] MEDS ORDERED: MIRTAZAPINE 15 MG TABLET PO SCH (22:00)
[2019-12-23] MEDS: NORMAL SALINE 1000 ML 1,000 ML IV PRN (22:10)
[2019-12-24] MEDS: AMPICILLIN SODIUM 1 GM in NORMAL SALINE 50 ML IV SCH ×4 (01:08→17:04)
[2019-12-24 06:25] LABS: HEMATOCRIT 26.7 % (37.9-51.0); MEAN CORPUSCULAR HEMOGLOBIN 30.2 pg (27.0-33.4); MEAN CORPUSCULAR HGB CONC 33.6 g/dL (32.0-36.0); MEAN CORPUSCULAR VOLUME 90 fl (80-97); PLATELET COUNT 291 10^3/uL (150-450); RED BLOOD COUNT 2.97 10^6/uL (4.35-5.55); RED CELL DISTRIBUTION WIDTH 17.2 % (11.5-14.0); WHITE BLOOD COUNT 10.3 10^3/uL (4.0-10.5)
[2019-12-24 06:55] LABS: APPEARANCE,URINE SLIGHTLY-CLOUDY; BILIRUBIN,URINE NEGATIVE (NEGATIVE); COLOR,URINE YELLOW; GLUCOSE, URINE NEGATIVE (NEGATIVE); KETONES,URINE TRACE mg/dL (NEGATIVE); LEUKOCYTE ESTERASE,URINE LARGE (NEGATIVE); NITRITE,URINE NEGATIVE (NEGATIVE); PROTEIN,URINE NEGATIVE (NEGATIVE); URINE SPECIFIC GRAVITY 1.019; UROBILINOGEN,URINE NEGATIVE mg/dL (<2.0)
[2019-12-24] MEDS: METOPROLOL TARTRATE 50 MG TABLET PO SCH (09:45)
[2019-12-24] MEDS: APIXABAN 5 MG TABLET PO SCH (09:46)
[2019-12-24] MEDS: CARBIDOPA/LEVODOPA 25-250 MG TABLET PO SCH (09:46)
--- NOTE | 2019-12-24 14:55 | PDOC TRANSFER SUMMARY ---
Impression - Admit/DC Date/PCP Admission Date/Primary Care Provider: 12/19/19 17:12 MATHEUS EVANS MD Discharge Date: 12/24/19 - Discharge Diagnosis (1) Atrial fibrillation Is this a current diagnosis for this admission?: Yes (2) Decubitus ulcer of right hip Is this a current diagnosis for this admission?: Yes (3) AAA (abdominal aortic aneurysm) without rupture Is this a current diagnosis for this admission?: Yes (4) HTN (hypertension) Is this a current diagnosis for this admission?: Yes (5) Bacteremia due to coagulase-negative Staphylococcus Is this a current diagnosis for this admission?: Yes - Additional Information Resuscitation Status: Full Code Discharge Diet: Cardiac Discharge Activity: Supervised Activity, No tub bath Referrals: MATHEUS EVANS MD [Primary Care Provider] - Follow up as needed Prescriptions: L. Acidophilus/Pectin, Stoddard [Acidophilus Probiotic Capsule] 1 each PO TID #30 capsule Amoxicillin 1 tab PO QID #40 tab Home Medications: Amlodipine Besylate [Norvasc 10 mg Tablet] 10 mg PO QAM 08/17/19 Apixaban [Eliquis 5 mg Tablet] 5 mg PO BID 08/17/19 Atorvastatin Calcium [Lipitor 80 mg Tablet] 80 mg PO QHS 08/17/19 Carbidopa/Levodopa [Sinemet 25-250 mg Tablet] 1 each PO Q12 08/17/19 Colchicine [Colcrys 0.6 mg Tablet] 0.6 mg PO QAM 08/17/19 Fesoterodine Fumarate [Toviaz] 4 mg PO QAM 08/17/19 Finasteride [Proscar] 5 mg PO QAM 08/17/19 Metoprolol Succinate [Toprol Xl 25 mg Tab.sr] 25 mg PO QAM 08/17/19 Ondansetron HCl [Zofran 4 mg Tablet] 4 mg PO Q8HP PRN 08/17/19 Tamsulosin HCl [Flomax] 0.4 mg PO BID 08/17/19 Tramadol HCl [Ultram] 50 mg PO Q6HP PRN 08/17/19 Acetaminophen [Tylenol 325 mg Tablet] 650 mg PO Q4HP PRN 10/11/19 Mirtazapine 15 mg PO QHS 10/11/19 Allopurinol [Zyloprim 100 mg Tablet] 100 mg PO DAILY 12/20/19 Amino Acids/Protein Hydrolys [Pro-Stat Awc Liquid Packet] 1 pkt PO DAILY MDD STOP 01/20/20 12/20/19 Ascorbic Acid [Vitamin C 500 mg Tablet] 500 mg PO DAILY 12/20/19 Esomeprazole Magnesium [Nexium] 20 mg PO DAILY 12/20/19 Multivitamin with Minerals [One Daily Plus Minerals] 1 each PO DAILY 12/20/19 Amoxicillin 1 tab PO QID #40 tab 12/24/19 L. Acidophilus/Pectin, Stoddard [Acidophilus Probiotic Capsule] 1 each PO TID #30 capsule 12/24/19 History of Present Illiness History of Present Illness: NELI WIGGINS is a 74 year old male with a past medical history of atrial fibrillation on Eliquis, hypertension, Parkinson's disease, dementia, prior CVA, history of abdominal aortic aneurysm and chronic right hip ulcer which was brought into the ER from [facility] due to fever. Patient reportedly had a fever of 102F at the residential. He was also report edly having poor appetite and intake and was noted to be weaker than usual. In the ER, work-up was remarkable for leukocytosis, new left lower lobe pneumonia and a fall smelling draining right hip ulcer. On encounter, he appears comfortable in room air but does not appear to be interested in engaging in conversation. Is able to tell me his name. He is able tell me it is December 2019 but thinks he is still at [facility] at the moment. He does say that he has been having cough for a few days. He denies chest pain or shortness of breath. He does complain of right hip pain. Hospital Course Hospital Course: He wound up getting a debridement of the wound on the right hip and having a wound VAC placed. He grew out a Proteus and enterococcus from the wound, both of which were sensitive to ampicillin. He will complete a course of amoxicillin to complete 2 weeks of treatment. His pain has been pretty well controlled thankfully has been minimal. His oral intake is not been very good, but it has picked up in the last couple of days. It looks like he was getting Remeron during the day and we have switched that tonight and so now he is more awake and alert during the daytime and this coincided with the improvement in his appetite. Once we were able to confirm that he had a wound VAC at [facility], arrangements were made for his discharge. He will follow-up with surgery in 10 to 14 days. He will get the wound VAC dressing changes every 3 days at the residential facility. Physical Exam Vital Signs: Temp Pulse Resp BP Pulse Ox 98.4 F 76 16 123/52 L 96 12/24/19 12:52 12/24/19 14:00 12/24/19 12:52 12/24/19 12:52 12/24/19 12:52 Intake & Output 12/23/19 12/24/19 12/25/19 06:59 06:59 06:59 Intake Total 494 1160 1050 Output Total 750 575 Balance -512 820 7548 Weight 65 kg 68.7 kg General appearance: PRESENT: no acute distress, cooperative, disheveled, thin Respiratory exam: PRESENT: clear to auscultation haider, symmetrical, unlabored. ABSENT: accessory muscle use, chest wall tenderness, crackles, prolonged expiratory phas, rales, retraction, rhonchi, tachypnea, wheezes Cardiovascular exam: PRESENT: irregular rhythm, other - Normal rate Pulses: PRESENT: normal carotid pulses Vascular exam: PRESENT: normal capillary refill GI/Abdominal exam: PRESENT: normal bowel sounds, soft. ABSENT: distended, guarding, rebound, tenderness Extremities exam: ABSENT: clubbing, pedal edema Musculoskeletal exam: ABSENT: deformity Neurological exam: PRESENT: alert, awake, oriented to person. ABSENT: oriented to place Psychiatric exam: PRESENT: flat affect Skin exam: PRESENT: other - There is a lesion in the right hip, wound VAC is in place Results Laboratory Results: WBC 10.3 10^3/uL (4.0-10.5) 12/24/19 05:52 RBC 2.97 10^6/uL (4.35-5.55) L 12/24/19 05:52 Hgb 9.0 g/dL (13.5-17.0) L 12/24/19 05:52 Hct 26.7 % (37.9-51.0) L 12/24/19 05:52 MCV 90 fl (80-97) 12/24/19 05:52 MCH 30.2 pg (27.0-33.4) 12/24/19 05:52 MCHC 33.6 g/dL (32.0-36.0) 12/24/19 05:52 RDW 17.2 % (11.5-14.0) H 12/24/19 05:52 Plt Count 291 10^3/uL (150-450) 12/24/19 05:52 Lymph % (Auto) 16.9 % (13-45) 12/19/19 09:04 [place] % (Auto) 4.6 % (3-13) 12/19/19 09:04 Eos % (Auto) 0.3 % (0-6) 12/19/19 09:04 Baso % (Auto) 0.3 % (0-2) 12/19/19 09:04 Absolute Neuts (auto) 9.4 10^3/uL (1.7-8.2) H 12/19/19 09:04 Absolute Lymphs (auto) 2.0 10^3/uL (0.5-4.7) 12/19/19 09:04 Absolute Monos (auto) 0.6 10^3/uL (0.1-1.4) 12/19/19 09:04 Absolute Eos (auto) 0.0 10^3/uL (0.0-0.6) 12/19/19 09:04 Absolute Basos (auto) 0.0 10^3/uL (0.0-0.2) 12/19/19 09:04 Seg Neutrophils % 77.9 % (42-78) 12/19/19 09:04 ESR 54 mm/hr (0-20) H 12/19/19 17:25 PT 16.6 SEC (11.4-15.4) H 12/19/19 17:25 INR 1.33 12/19/19 17:25 APTT 77.4 SEC (23.5-35.8) H 12/23/19 05:07 Sodium 134.4 mmol/L (137-145) L 12/20/19 02:10 Potassium 4.8 mmol/L (3.6-5.0) 12/20/19 02:10 Chloride 106 mmol/L (98-107) 12/20/19 02:10 Carbon Dioxide 23 mmol/L (22-30) 12/20/19 02:10 Anion Gap 5 (5-19) 12/20/19 02:10 BUN 25 mg/dL (7-20) H 12/20/19 02:10 Creatinine 1.06 mg/dL (0.52-1.25) 12/20/19 02:10 Est GFR ( Amer) > 60 (>60) 12/20/19 02:10 Est GFR (Non-Af Amer) Cancelled 12/19/19 09:04 Est GFR (MDRD) Non-Af > 60 (>60) 12/20/19 02:10 Glucose 88 mg/dL (75-110) 12/20/19 02:10 POC Glucose 101 mg/dL (70-110) 12/21/19 11:50 Lactic Acid 1.0 mmol/L (0.7-2.1) 12/19/19 11:45 Calcium 8.0 mg/dL (8.4-10.2) L 12/20/19 02:10 Total Bilirubin 0.5 mg/dL (0.2-1.3) 12/19/19 09:04 Total Bilirubin Cancelled 12/19/19 09:04 Direct Bilirubin 0.4 mg/dL (0.0-0.4) 12/19/19 09:04 Direct Bilirubin Cancelled 12/19/19 09:04 Neonat Total Bilirubin Cancelled 12/19/19 09:04 Neonat Total Bilirubin Not Reportable 12/19/19 09:04 Neonat Direct Bilirubin Cancelled 12/19/19 09:04 Neonat Direct Bilirubin Not Reportable 12/19/19 09:04 Neonat Indirect Bili Cancelled 12/19/19 09:04 Neonat Indirect Bili Not Reportable 12/19/19 09:04 AST 70 U/L (17-59) H 12/19/19 09:04 AST Cancelled 12/19/19 09:04 ALT 35 U/L (<50) 12/19/19 09:04 ALT Cancelled 12/19/19 09:04 Alkaline Phosphatase 122 U/L (38-126) 12/19/19 09:04 Alkaline Phosphatase Cancelled 12/19/19 09:04 Troponin I 0.037 ng/mL 12/19/19 09:04 C-Reactive Protein 140.7 mg/L (<10.0) H 12/19/19 09:04 Total Protein 6.2 g/dL (6.3-8.2) L 12/19/19 09:04 Total Protein Cancelled 12/19/19 09:04 Albumin 2.4 g/dL (3.5-5.0) L 12/19/19 09:04 Albumin Cancelled 12/19/19 09:04 Lipase 145.7 U/L (23-300) 12/19/19 09:04 EGFR Cancelled 12/19/19 09:04 Urine Color YELLOW 12/24/19 06:40 Urine Appearance SLIGHTLY-CLOUDY 12/24/19 06:40 Urine pH 6.0 (5.0-9.0) 12/24/19 06:40 Ur Specific [place] 1.019 12/24/19 06:40 Urine Protein NEGATIVE mg/dL (NEGATIVE) 12/24/19 06:40 Urine Glucose (UA) NEGATIVE mg/dL (NEGATIVE) 12/24/19 06:40 Urine Ketones TRACE mg/dL (NEGATIVE) H 12/24/19 06:40 Urine Blood NEGATIVE (NEGATIVE) 12/24/19 06:40 Urine Nitrite NEGATIVE (NEGATIVE) 12/24/19 06:40 Urine Nitrite (Reflex) Cancelled 12/19/19 12:06 Urine Bilirubin NEGATIVE (NEGATIVE) 12/24/19 06:40 Urine Urobilinogen NEGATIVE mg/dL (<2.0) 12/24/19 06:40 Ur Leukocyte Esterase LARGE (NEGATIVE) H 12/24/19 06:40 Leukocyte Esterase Rfl Cancelled 12/19/19 12:06 Urine WBC (Auto) 60 /HPF 12/24/19 06:40 Urine RBC (Auto) 7 /HPF 12/24/19 06:40 Urine Bacteria (Auto) TRACE /HPF 12/24/19 06:40 Urine WBC (Reflex) Cancelled 12/19/19 12:06 Urine WBC Clumps MANY /HPF 12/20/19 17:15 Squamous Epi Cells Auto <1 /HPF 12/24/19 06:40 Urine Mucus (Auto) RARE /LPF 12/24/19 06:40 Urine Ascorbic Acid 40 (NEGATIVE) H 12/24/19 06:40 Influenza A (Rapid) NEGATIVE (NEGATIVE) 12/19/19 10:16 Influenza B (Rapid) NEGATIVE (NEGATIVE) 12/19/19 10:16 12/19/19 09:04 Troponin I 0.037 Impressions: Chest X-Ray 12/19/19 09:54 IMPRESSION: LIMITED STUDY. SUSPECT LEFT LOWER LOBE PNEUMONIA. Abdomen/Pelvis CT 12/19/19 11:25 IMPRESSION: New opacity at the left lung base most consistent with pneumonia. No acute intra-abdominal process. There is a 4 cm infrarenal abdominal aortic aneurysm which is stable. Feldman catheter in the bladder without decompression of the bladder. Plan Time Spent: Greater than 30 Minutes Stroke Is this a Stroke Patient?: No Acute Heart Failure - Is this a Heart Failure Patient?: No
[2019-12-24 17:25] VITALS: BP 143/48
== END 2019-12-24 18:19 | DRG 579 ==
LOC: ER 08:52 → EH 17:12 → 3S 19:49 → UNDODISIN 12-22 12:35
PROVIDERS: ADMIT Internal Medicine; ATTEND Internal Medicine
PROC: 0JDL0ZZ Extraction of Right Upper Leg Subcutaneous Tissue and Fascia, Open Approach (ICD-10-PCS; principal; 2019-12-21 10:00)
DX: L89.314 Pressure ulcer of right buttock, stage 4 (principal); J18.9 Pneumonia, unspecified organism; R78.81 Bacteremia; N39.0 Urinary tract infection, site not specified; I48.20 Chronic atrial fibrillation, unspecified; B96.4 Proteus (mirabilis) (morganii) as the cause of diseases classified elsewhere; B95.2 Enterococcus as the cause of diseases classified elsewhere; K21.9 Gastro-esophageal reflux disease without esophagitis; E86.0 Dehydration; N18.9 Chronic kidney disease, unspecified; I12.9 Hypertensive chronic kidney disease with stage 1 through stage 4 chronic kidney disease, or unspecified chronic kidney disease; I71.4 Abdominal aortic aneurysm, without rupture; I44.4 Left anterior fascicular block; N40.0 Benign prostatic hyperplasia without lower urinary tract symptoms; G20 Parkinson's disease; F02.80 Dementia in other diseases classified elsewhere, unspecified severity, without behavioral disturbance, psychotic disturbance, mood disturbance, and anxiety; Z79.01 Long term (current) use of anticoagulants; Z79.899 Other long term (current) drug therapy; Z74.01 Bed confinement status
CPT/HCPCS: 36415; 400; 71045; 74177; 80048; 80053; 81001; 82962; 83605; 83690; 84484; 85025; 85027; 85610; 85652; 85730; 86140; 87040; 87070; 87075; 87077; 87086; 87088; 87150; 87186; 87205; 87804; 93005; 93010; 93306; 96361; 96365; 96367; 99285; J0290; J0692; J1100; J1644; J2001; J2250; J2270; J2405; J2543; J2704; J3010; J3370; J3490; J7030; J7060; Q9968